=== PATIENT | female | born 1950 | race Caucasian/White ===

== ENCOUNTER 2023-05-16 14:55 | Outpatient (RCR) | payer MEDICARE, OTHER, SELFPAY | END 2023-05-16 23:59 | disposition home or self-care (01) | LOC: RST 14:55 | PROVIDERS: ATTENDING PHYSICIAN Physician Assistant | DX: I69.328 Other speech and language deficits following cerebral infarction (principal); I69.321 Dysphasia following cerebral infarction; I69.318 Other symptoms and signs involving cognitive functions following cerebral infarction | CPT/HCPCS: 92507; 92523; 96125; 97010; 97110; 97112; 97116; 97129; 97130; 97163; 97167; 97530; 97535 ==

== ENCOUNTER → 2023-05-18 15:30 | Outpatient (REF) | payer MEDICARE, OTHER, SELFPAY | LOC: RAD 15:30 | PROVIDERS: ATTENDING PHYSICIAN Nurse Practitioner; FAMILY PHYSICIAN Physician Assistant | DX: I44.7 Left bundle-branch block, unspecified (principal); Z95.2 Presence of prosthetic heart valve; I10 Essential (primary) hypertension; R09.89 Other specified symptoms and signs involving the circulatory and respiratory systems | CPT/HCPCS: 93880 ==

== ENCOUNTER 2023-06-16 10:28 | Outpatient (RCR) | payer MEDICARE, OTHER, SELFPAY | END 2023-06-16 23:59 | disposition home or self-care (01) | LOC: RST 10:28 | PROVIDERS: ATTENDING PHYSICIAN Physician Assistant | DX: I69.328 Other speech and language deficits following cerebral infarction (principal); I69.321 Dysphasia following cerebral infarction; I69.318 Other symptoms and signs involving cognitive functions following cerebral infarction; I69.398 Other sequelae of cerebral infarction; Z73.6 Limitation of activities due to disability | CPT/HCPCS: 92507; 97022; 97110; 97112; 97116; 97129; 97130; 97530; 97535 ==

== ENCOUNTER 2023-07-07 10:17 | Outpatient (RCR) | payer MEDICARE, OTHER, SELFPAY | END 2023-07-07 14:14 | disposition home or self-care (01) | LOC: RST 10:17 | PROVIDERS: ATTENDING PHYSICIAN Physician Assistant | DX: I63.9 Cerebral infarction, unspecified (principal); I69.328 Other speech and language deficits following cerebral infarction; I69.321 Dysphasia following cerebral infarction; I69.318 Other symptoms and signs involving cognitive functions following cerebral infarction | CPT/HCPCS: 92507; 97110; 97112; 97129; 97130; 97530; 97535 ==

== ENCOUNTER 2023-09-15 09:05 | Outpatient (RCR) | payer MEDICARE, OTHER, SELFPAY | END 2023-09-15 23:59 | disposition home or self-care (01) | LOC: RPT 09:05 | PROVIDERS: ATTENDING PHYSICIAN Physician Assistant | DX: N39.3 Stress incontinence (female) (male) (principal); N39.41 Urge incontinence; Z73.6 Limitation of activities due to disability; M62.81 Muscle weakness (generalized); R27.8 Other lack of coordination | CPT/HCPCS: 97140; 97162; 97530 ==

== ENCOUNTER 2023-10-06 09:03 | Outpatient (RCR) | payer MEDICARE, OTHER, SELFPAY | END 2023-10-06 23:59 | disposition home or self-care (01) | LOC: RPT 09:03 | PROVIDERS: ATTENDING PHYSICIAN Physician Assistant | DX: N39.3 Stress incontinence (female) (male) (principal); N39.41 Urge incontinence; Z73.6 Limitation of activities due to disability; M62.81 Muscle weakness (generalized); R27.8 Other lack of coordination | CPT/HCPCS: 97140; 97530 ==

== ENCOUNTER 2023-10-27 23:53 | Inpatient (IN) | payer MEDICARE, OTHER, SELFPAY ==
[2023-10-27 21:01] VITALS: BP 157/78
[2023-10-27 21:08] VITALS: BP 157/93
[2023-10-27 21:10] LABS: Glucose - Point of Care 149 mg/dl (70-99)
--- NOTE | 2023-10-27 21:10 | EDRN ---
Mallory brought right back to room from triage, Dr. Krishnan in at bedside assessing patient and called stroke alert, did call CT to take patient over, there was another stroke alert on the table when I called, they will call when the table opens up.
[2023-10-27] MEDS: ZOFRAN 4 MG IV (21:14)
[2023-10-27 21:15] VITALS: BMI 32.5
[2023-10-27 21:21] LABS: % Basophils 0.3 % (0-2); % Eosinophils 0.2 % (0-6); % Immature Granulocytes 0.2 % (0-0.5); % Lymphocytes 8.5 % (20.5-51.1); % Monocytes 6.9 % (1.7-9.3); % Neutrophils 83.9 % (42.2-75.2); Absolute Lymphocytes 1.1 10^3/uL (1.2-3.4); Absolute Monocytes 0.9 10^3/uL (0.1-0.6); Absolute Neutrophils 10.9 10^3/uL (1.4-6.5); Hematocrit 39.9 % (37.0-47.0); Hemoglobin 13.8 g/dL (12.0-16.0); Mean Corp Hgb Conc. 34.6 g/dL (33.0-37.0); Mean Corpuscular Volume 83.8 fL (81.0-99.0); Mean Platelet Volume 9.9 fL (7.4-10.4); Nucleated Red Blood Cells % 0 %; Platelet Count 268 10^3/uL (130-400); Red Blood Cell Count 4.76 10^6/uL (4.20-5.40); Red Cell Dist. Width 13.6 % (11.5-14.5)
[2023-10-27 21:30] LABS: INR 0.98
[2023-10-27 21:31] LABS: APTT 27.5 Sec (23.4-35.0)
[2023-10-27 21:39] LABS: ALT (SGPT) 34 U/L (0-35); AST (SGOT) 40 U/L (14-36); Albumin 4.4 g/dl (3.5-5.0); Alkaline Phosphatase 86 U/L (38-126); Blood Urea Nitrogen 20 mg/dl (7-17); Calcium 10.1 mg/dl (8.4-10.2); Carbon Dioxide 27 mmol/L (22-30); Chloride 97 mmol/L (98-107); Estimated Creatinine Clearance 83 ml/min; Glucose 138 mg/dl (70-99); Potassium 3.2 mmol/L (3.5-5.1); Sodium 134 mmol/L (135-145); Total Bilirubin 0.8 mg/dl (0.2-1.3); Total Protein 6.7 g/dl (6.3-8.2); eGFR > 60.00
[2023-10-27 21:45] LABS: Troponin I < 0.012 ng/ml
--- NOTE | 2023-10-27 21:49 | EDRN ---
Patient back in the room and resting comfortably with family at bedside, nausea has subsided.
[2023-10-27 22:00] VITALS: BP 150/68
--- NOTE | 2023-10-27 22:06 | ED.CVA ---
History of Present Illness
General
Chief Complaint: CVA/TIA Symptoms
Source: patient and family
Time Seen by Provider: 10/27/23 21:03
Onset of Stroke Symptoms
Onset of symptoms known: No
Date of onset of symptoms: 10/27/23
Time pt last seen normal is known: Yes
Date last time pt seen normal: 10/27/23
Time last time pt seen normal: 06:00
History of Present Illness
History of Present Illness:
73-year-old female presents after family noticed that she was not herself. She had laid down for nap around 6:00 and Checked on her. Around 8 he realized she could not get out of bed on her own and was having a tough time getting up. He
also noted that she was slurring her speech and also had trouble finding words. He states now is mostly trouble finding words. She has a history of a stroke. She had a stroke back in March. Patient also reports nausea. No headache. No focal
motor deficits reported
Past History
Past History
ED Past Medical History: Asthma, CVA, HTN, Hypercholesterolemia, NIDDM, Other (Arthritis) and Other (Seasonal allergies)
ED Past Surgical History: Gynecological (Hysterectomy) and Other (Removal of benign brain tumor)
Social History
Tobacco: Non-smoker
Personal:
Living: with family
Phy Exam
Physical Exam
Physical Exam:
CONSTITUTIONAL Patient alert and oriented to person, place and time. Retching during exam. Vital signs reviewed.
HEAD atraumatic, normocephalic.
EYES eyelids normal to inspection, Pupils equally round and reactive to light, Conjunctiva normal, Sclera normal.
NECK normal range of motion, Trachea midline, no jugular venous distention.
RESPIRATORY CHEST No respiratory distress noted, Chest expansion equal, Bilateral breath sounds clear.
CARDIOVASCULAR regular rate and rhythm, Heart sounds normal.
ABDOMEN abdomen nontender, Bowel sounds normal. No distention.
BACK normal inspection, no obvious deformities
UPPER EXTREMITY range of motion normal, Motor strength normal, no cyanosis, no edema.
LOWER EXTREMITY range of motion normal, Motor strength normal, no cyanosis, no edema.
NEURO mild word finding difficulty on initial exam, No focal motor deficits, Aramis coma scale 15, Memory normal, Cranial Nerves intact to screening exam. No pronator drift
SKIN skin warm, dry, and normal in color.
PSYCHIATRIC patient oriented to person place and time, Normal affect.
Course
Orders/Labs/Results
Orders:
Orders
10/27/23 21:09
Electrocardiogram (*1) Urgent
Reason for Study: Other
Other Reason for Exam: Possible Stroke
CT Head W/o Cont STROKE ALERT Urgent
Comment:
Reason For Exam: aphasia
Bedside Glucose- Treatment ONCE
Cardiac Monitoring- Treatment ONCE
EKG- Treatment ONCE
IV Insert/Care/Rem.- Treatment PRN
Vital Signs As Directed
Frequency: Other
Weight As Directed
Frequency: Once
Comment: ZERO STRETCHER SCALE FOR ACCURATE WEIGHT
O2 Therapy [RESP] Urgent
Titrate/Wean O2 to maintain O2 sat greater than (%): 93
Special Instructions: MAINTAIN CONTINUOUS O2 SATS > OR = 93%
10/27/23 21:10
Ondansetron Injectable [Zofran] 4 mg .ROUTE .STK-MED ONE
10/27/23 21:12
Complete Blood Count/With Diff Urgent
Comprehensive Metabolic Panel Urgent
PTT Urgent
Prothrombin Time Urgent
Troponin I Urgent
10/27/23 21:14
Ondansetron Injectable [Zofran] 4 mg IV NOW STA
10/27/23 21:24
CT Head/Neck Ang STROKE ALERT Urgent
Comment:
Reason For Exam: aphasia
Abnormal Lab Results
10/27/23 10/27/23
21:01 21:12
WBC 13.0 H 10^3/uL
(4.8-10.8)
Absolute Neuts (auto) 10.9 H 10^3/uL
(1.4-6.5)
Absolute Lymphs (auto) 1.1 L 10^3/uL
(1.2-3.4)
Absolute Monos (auto) 0.9 H 10^3/uL
(0.1-0.6)
Neutrophils % 83.9 H %
(42.2-75.2)
Lymphocytes % 8.5 L %
(20.5-51.1)
Sodium 134 L mmol/L
(135-145)
Potassium 3.2 L mmol/L
(3.5-5.1)
Chloride 97 L mmol/L
(98-107)
BUN 20 H mg/dl
(7-17)
Creatinine 0.4 L mg/dL
(0.6-1.0)
Glucose 138 H mg/dl
(70-99)
AST 40 H U/L
(14-36)
POC Glucose 149 H mg/dl
(70-99)
10/27/23 21:12
10/27/23 21:12
Vital Signs
Initial and Last Documented VS:
Initial Vital Signs
BP
157/78
10/27/23 21:01
Last Documented Vital Signs
Temp BP
99.2 F 157/78
10/27/23 21:06 10/27/23 21:01
MDM/Problems Addressed
MDM/Problems Addressed:
Acute TIA, vomiting
*Radiology
Radiology exam reviewed: radiology read reviewed
*Pulse Oximetry
Patient hypoxic: no
*EKG
Interpreted by ED Provider?: Yes
Interpretation: abnormal
Rate: normal
Rhythm: sinus
[place]: left axis deviation
QRS Pattern: left bundle branch block
Ischemia: non-specific ST changes
*Web Site Developer Interpretation
Rate: normal
Interpretation: normal
Rhythm: sinus
*Critical Care Note
Total Time (30-74mins, 75-104mins- exclusive of procedures): 40 minutes
Data Reviewed
Review of Other/Old Records Reveals: Discharge Summary (From March)
Source: patient and family
Prescriptions/Medications Considered But Not Given:
Consider tPA but on reevaluation her symptoms have resolved. Initial score was only at stroke score 1
Patient Management
Discussion with other providers: Hospitalist and [facility] (Discussed with neurology. No tPA)
Escalation/DeEscalation of care consider admission/obs:
On reevaluation she does seem more clear with her speech and feels better. CT negative. Continue aspirin and Plavix as per neurology and admit
ED Attending Note
-
Portions of this chart may have been created with voice recognition software.� Occasional wrong word or��sound alike� substitutions may have occurred due to the inherent limitations of voice recognition software.
Discharge Plan
Departure
Patient Disposition: Admit
Date of Disposition: 10/27/23
Time of Disposition: 22:07
Admit to: Telemetry
Presentation/result/management discussed w/ accepting MD/DO: Hospitalist
Discharge Problem:
TIA (transient ischemic attack)
Prescriptions:
No Action
metoprolol succinate 200 mg Tablet Extended Release 24 Hr
200 mg PO QPM
omeprazole 40 mg Capsule,Delayed Release(Dr/Ec)
40 mg PO QPM
meloxicam 7.5 mg Tablet
7.5 mg PO BID
levothyroxine 50 mcg Tablet
50 mcg PO MOTUWETHFR
metformin 1,000 mg Tablet
1,000 mg PO BID
estradiol 0.01 % (0.1 mg/gram) Cream
1 appful VAGINAL SUWE
Patient Comments:
takes sundays and wednesdays
fenofibrate 160 mg Tablet
160 mg PO DAILY
valsartan-hydrochlorothiazide 320-25 mg Tablet
1 tab PO DAILY
citalopram 40 mg Tablet
40 mg PO QPM
levothyroxine 50 mcg tablet
100 mcg PO SUSA
aspirin 81 mg Tablet,Delayed Release (Dr/Ec)
81 mg PO DAILY Qty: 30 0RF
atorvastatin 80 mg tablet
80 mg PO QPM
amlodipine 5 mg tablet
5 mg PO DAILY
spironolactone 25 mg tablet
25 mg PO DAILY
hydralazine 50 mg tablet
50 mg PO TID
ezetimibe 10 mg tablet
10 mg PO DAILY
Visbiome 112.5 billion cell Capsule
1 cap PO QPM
Ozempic 0.25 mg or 0.5 mg (2 mg/3 mL) pen injector
0.5 mg SC WEEKLY
Referrals:
Gail Joiner CRNP [Family Provider] -
Interventions
Interventions:
ED- Fall Risk Assessment Last Done: 10/27/23 21:20
ED- Neurological Assessment Last Done: 10/27/23 20:59
Discharge Date and Time
Print Language: ROMANSH
[2023-10-27 23:00] VITALS: BP 143/65
[2023-10-27 23:14] LABS: Urine Albumin Trace (Neg - Trace); Urine Bilirubin Negative (Negative); Urine Character Slightly Cloudy (Clear); Urine Color Yellow; Urine Glucose Negative (Negative); Urine Ketone Negative (Negative); Urine Leukocyte Negative (Negative); Urine Nitrite Negative (Negative); Urine Occult Blood Negative (Negative); Urine Urobilinogen Negative (Neg - 1+)
--- NOTE | 2023-10-27 23:14 | EDRN ---
Patient ambulated into the restroom and back in bed resting comfortably asking for water, performed swallow screen first which she passed and now back in bed, with call mcfarland in reach.
--- NOTE | 2023-10-27 23:16 | EDRN ---
Dr. angeles at beside with patient.
--- NOTE | 2023-10-27 23:59 | HPS.HSE ---
Family Physician
-
Family Physician: Gail Joiner
Chief Complaint
-
Speech difficulty
History of Present Illness
Patient is a 73y F with PMH significant for hypertension, DM-II, hypothyroidism and prior CVA who presents to ED for evaluation of speech abnormality. History obtained from patient and her at the bedside. Patient states that she has
felt more dizzy over the past several weeks. She notes chronic dizziness that has been present for years - apparently without clear etiology. Patient states that these symptoms increased about 3 weeks ago and she reports starting 2 new
medications at that time. One of these was a 'water pill' (? spironolactone). She cannot recall the second med, but notes that she stopped it shortly after starting it as she blamed it for her increase in dizziness.
Patient has also been attending pelvic therapy for the past few weeks due to continence issues. She had a session today and noted that she felt particularly sore / uncomfortable following this.
She informed her that she 'wasn't feeling well' and she lie down for a nap around 5:30 - 6 PM.
She did not wake after an hour or two - which she typically does. noted that he checked on her a few times and she seemed to be sleeping comfortably.
Around 8PM he noted that she was trying to get up and he went to assist her. At that time, he noted that she was having difficulty speaking. This was characterized primarily as word-finding difficulty - not dysarthria or garbled speech. She was
also very unsteady on her feet - though there was no appreciated lateral weakness or ataxia.
Patient was brought to the ED for further evaluation and treatment.
Patient is awake and alert and conversant. states that she is improved from prior - but still not at baseline. She continues to have difficulty with word finding - especially with open-ended speech / questions.
Patient denies any recent fevers / chills, cough, urinary symptoms, etc.
does note that she was incontinent of urine this evening in the bed - which is also unusual.
Medical History
Past Medical History
Past Medical History: Reports Other
Additional Past Medical History:
Essential hypertension
DM2
Aortic stenosis
Meningioma
GERD
VESNA
Hypothyroidism
Hyperlipidemia
CVA (03/2023)
Past Surgical History: Reports Other
Additional Past Surgical History:
TAVR January 2023
Meningioma resection
Social History
Tobacco: Non-smoker
Alcohol: None
Drug: None
Personal:
Living: With Family
Family History
Family History: Not pertinent
Allergies / Home Medications
Allergies reflects when Allergies were last updated in [employer].
Home Medications with original date entered in [employer]
Allergy/Medication List:
Allergies
Allergy/AdvReac Type Severity Reaction Status Date / Time
methenamine Allergy Rash, Verified 05/06/23 13:54
itching
sulfamethoxazole Allergy Rash Verified 05/06/23 13:54
[From Bactrim]
trimethoprim [From Bactrim] Allergy Rash Verified 05/06/23 13:54
Home Medications
citalopram 40 mg tablet 40 mg PO QPM Mental Health/Anxiety 12/01/22
estradiol 0.01% (0.1 mg/gram) vaginal cream 1 appful vaginal SUWE Hormonal Agent 12/01/22
fenofibrate 160 mg tablet 160 mg PO DAILY High Cholesterol 12/01/22
levothyroxine 50 mcg tablet 50 mcg PO MOTUWETHFR Thyroid 12/01/22
meloxicam 7.5 mg tablet 7.5 mg PO BID Pain 12/01/22
metformin 1,000 mg tablet 1,000 mg PO BID Diabetes 12/01/22
metoprolol succinate 200 mg tablet,extended release 24 hr 200 mg PO QPM Heart Disease/Condition 12/01/22
omeprazole 40 mg capsule,delayed release 40 mg PO QPM Gastrointestinal Issue 12/01/22
valsartan 320 mg-hydrochlorothiazide 25 mg tablet 1 tab PO DAILY Blood Pressure 12/01/22
levothyroxine 50 mcg tablet 100 mcg PO SUSA Thyroid 04/03/23
aspirin 81 mg tablet,delayed release 81 mg PO DAILY #30 tabs 04/06/23
Lactobac no.2-Bifidobac no.1-S. thermo 112.5 billion cell capsule (Visbiome) 1 cap PO QPM 10/27/23
amlodipine 5 mg tablet 5 mg PO DAILY 10/27/23
atorvastatin 80 mg tablet 80 mg PO QPM 10/27/23
ezetimibe 10 mg tablet 10 mg PO DAILY 10/27/23
hydralazine 50 mg tablet 50 mg PO TID 10/27/23
semaglutide 0.25 mg or 0.5 mg (2 mg/3 mL) subcutaneous pen injector (Ozempic) 0.5 mg SC WEEKLY 10/27/23
spironolactone 25 mg tablet 25 mg PO DAILY 10/27/23
Review of Systems
-
History Source: Patient and Family
A 12 point ROS was completed and negative except as noted: Yes
Constitutional: Reports Night Sweats (hot flashes); Denies Fever or Fatigue
EENT: Denies Sore Throat or Runny Nose
Respiratory: Denies Cough or Trouble Breathing
Cardiac: Denies Chest Pain or Palpitations
Abdomen/GI: Denies Abdominal Pain, Nausea, Vomiting or Diarrhea
: Reports Incontinence; Denies Dysuria or Frequency
Musculoskeletal: Denies Joint Pain or Edema
Neurological: Reports Dizzy and Other (Word-finding difficulty); Denies Headache
Psych: Denies Depression or Anxiety
Physical Exam
Vital Signs
Vital Signs
Temp Pulse Resp BP Pulse Ox
99.2 F 88 21 150/68 88
10/27/23 21:06 10/27/23 22:15 10/27/23 22:15 10/27/23 22:00 10/27/23 22:15
Physical Exam
General: Other (73y F in no acute distress.)
HEENT: PERRLA and Other (Dry MM.)
Respiratory: Clear; No Wheezes, Rales or Rhonchi
Cardiac: S1/S2 and Regular Rhythm; No Murmur
GI: Soft, Non Tender, Non Distended and Normal Bowel Sounds
Musculoskeletal: No Clubbing, No Cyanosis and Other (Trace edema L ankle (chronic / unchanged))
Neuro: AO x 3 and Other (Word-finding difficulty appreciated. No focal weakness / sensory deficit.)
Laboratory Results
-
10/27/23 21:12
10/27/23 21:12
Laboratory Results
PT 13.0 Sec (11.4-14.6) 10/27/23 21:12
INR 0.98 10/27/23 21:12
APTT 27.5 Sec (23.4-35.0) 10/27/23 21:12
Total Bilirubin 0.8 mg/dl (0.2-1.3) 10/27/23 21:12
AST 40 U/L (14-36) H 10/27/23 21:12
ALT 34 U/L (0-35) 10/27/23 21:12
Alkaline Phosphatase 86 U/L (38-126) 10/27/23 21:12
Troponin I < 0.012 ng/ml 10/27/23 21:12
Impression/Plan
-
A/P: Patient is a 73y F with PMH significant for hypertension, DM-II and prior CVA who presents to ED for evaluation of new speech difficulty this evening.
CVA / TIA
- Admit for further evaluation and treatment.
- Persistent word-finding difficulty - symptoms distinct from prior episode (garbled speech, confusion).
- Continue ASA / restart Plavix.
- Continue statin therapy.
- MRI in AM.
- Follow neuro exam for any changes.
- Neurology evaluation in the AM for further recommendations.
Benign Hypertension
- BP fair at present.
- Continue home medications with holding parameters to avoid hypotension.
- Adjust regimen as needed for normotension prior to discharge.
Hypokalemia
- Continue recently started spironolactone.
- Check Mg level (was low on prior admission).
- Hold PPI for now.
DM-II
- Stable. Hold PO medications acutely.
- Hold Ozempic - which appears relatively new.
- Follow glucose and cover with SSI for now.
- Update A1C.
Hypothyroidism
- Continue current T4 supplementation for now.
- Update TFTs.
Chronic Dizziness
Chronic Cerebellar Strokes
- Suspect that chronic dizziness is secondary to previously noted cerebellar strokes.
- PT / OT evaluations.
- Not clear that anything is truly new in this regard.
Aortic Stenosis
- s/p TAVR (01/2023)
DVT Prophylaxis: SCDs
Code Status: Full
[2023-10-28] VITALS (11 sets, daily range): BP systolic 119–153; BP diastolic 48–72; PULSE 85; O2SAT 92; BMI 31.8; BMI 31.7
[2023-10-28] MEDS: TYLENOL 650 MG PO ×4 (03:03→21:52)
--- NOTE | 2023-10-28 03:23 | PTCARENOTE ---
Addendum entered by Lee Ann Feliciano RN 10/28/23 06:04:
Flu and covid negative.
Original Note:
Pt c/o chills, temp 101.2. Pt denies high temps at home. Lungs clear and 98% RA. JURGEN Maynard notified, CXR and Blood cultures ordered. PRN Tylenol given (see mar). Plan of care ongoing.
[2023-10-28 04:26] LABS: COVID-19 Antigen Negative (Negative)
[2023-10-28] MEDS: SYNTHROID 50 MCG PO (05:59)
[2023-10-28 07:18] LABS: Glucose - Point of Care 103 mg/dl (70-99)
[2023-10-28 07:59] LABS: Magnesium 1.2 mg/dl (1.6-2.3)
--- NOTE | 2023-10-28 08:18 | W.PN.HOSP.TC ---
Today's Communication/Plan
-
see bold
Assessment / Plan
Assessment / Plan
73y F with PMH significant for hypertension, DM-II and prior CVA who presents to ED for evaluation of new speech difficulty this evening.
Gen: NAD, awake and alert
Eyes: EOMI, PERRLA, no scleral icterus.
Neck: supple.
CV: RRR, +S1/S2, 2/6 systolic murmur
Resp: CTAB, no rales, wheezes, or rhonchi.
Abd: +BS, soft, NT, ND
Skin: No rashes.
Neuro: CN 2-12 intact, non-focal, expressive aphasia.
Psych: Normal mood and affect.
MRI brain:
1. No MRI evidence for acute infarct.
2. Small chronic ischemic infarcts in the right cerebellar hemisphere.
3. 6.7 mm chronic ischemic periventricular white matter infarct in the right frontal lobe.
4. Mild white matter leukoaraiosis in the frontal and parietal lobes.
5. Previous left frontotemporal craniotomy and meningioma resection with mild encephalomalacia in the left frontal lobe.
6. Mild diffuse cerebral and cerebellar volume loss.
7. 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
8. Severe multilevel left-sided facet joint arthrosis.
9. Mild paranasal sinus mucosal disease.
CXR: No focal parenchymal opacification to suggest pneumonia.
expressive aphasia:
-admitted with persistent word-finding difficulty - symptoms distinct from prior episode (garbled speech, confusion).
-continue ASA/Plavix/statin
-MRI brain without acute CVA
-c/s neuro
Fever/SIRS:
-Flu/COVID NEG
-U/A NEG
-CXR without PNA
-check BCxs
-suspect viral syndrome
Other problems:
Essential Hypertension: cont Norvasc/Hydralazine/BB/aldactone/ARB (with holding parameters)
DM2: SSI/accuchecks
Hypokalemia: 40meq PO K
Hypomagnesemia: 4g IV Mg
Hypothyroidism: cont Levoxyl
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
Aortic Stenosis s/p TAVR (01/2023)
Obesity due to excess calories
Patient's updated bedside
FULL/SCDs
Total time spent on today's encounter was 50 minutes which included time spent in counseling the patient/family regarding diagnosis and treatment plan as listed above, goals of care, and symptom management. Case was discussed with nursing staff,
specialists, and care coordinators/case management. All labs and imaging personally reviewed by me. Remainder the time spent in detailed review of previous records, lab data, imaging, and other medical provider documentation.
Anticipated Discharge: 24 - 48 hours
Subjective/Interval History
-
Date of Service: October 28, 2023
Patient still complains of word finding difficulties. She also complains of postnasal drip that is causing shortness of breath.
Objective Data
-
Labs:
Laboratory Results
10/27/23
21:12
WBC 13.0 H
Hgb 13.8
Hct 39.9
Plt Count 268
PT 13.0
INR 0.98
APTT 27.5
Sodium 134 L
Potassium 3.2 L
Chloride 97 L
Carbon Dioxide 27
BUN 20 H
Creatinine 0.4 L
Glucose 138 H
Calcium 10.1
Total Bilirubin 0.8
AST 40 H
ALT 34
Alkaline Phosphatase 86
Vital Signs:
Vital Signs
Temp Pulse Resp BP Pulse Ox
100.5 F H 82 16 137/60 97
10/28/23 07:59 10/28/23 07:59 10/28/23 07:59 10/28/23 07:59 10/28/23 07:59
I&O
10/27/23 10/28/23 10/29/23
06:59 06:59 06:59
Intake Total 480 / 480
Balance 480 / 480
[2023-10-28] MEDS: KCL 40 MEQ PO (08:29)
[2023-10-28] MEDS: PLAVIX PO ×2 (08:29→09:54)
[2023-10-28] MEDS: ZETIA 10 MG PO (08:29)
[2023-10-28] MEDS: PROTONIX 40 MG PO (08:29)
[2023-10-28] MEDS: ASPIR LOW (ENTERIC COATED) 81 MG PO (08:29)
[2023-10-28] MEDS: ALDACTONE 25 MG PO (08:30)
[2023-10-28] MEDS: DIOVAN 320 MG PO (08:30)
[2023-10-28] MEDS: NORVASC 5 MG PO (08:30)
[2023-10-28] MEDS: APRESOLINE 50 MG PO ×3 (08:30→21:53)
[2023-10-28] MEDS: MAGNESIUM SULFATE 100 IV (08:31)
[2023-10-28 08:49] LABS: Hepatitis C Antibody Negative (Negative)
--- NOTE | 2023-10-28 09:15 | CON.NEURO4 ---
Addendum entered and electronically signed by Michael Garcia MD 10/30/23 09:01:
Impression:
Mrs NURY HODGSON is a 73 year old F who has presented to the hospital with speech impediment that has resolved. MRI revealed Small chronic ischemic infarcts in the right cerebellar hemisphere. 6.7 mm chronic ischemic periventricular white matter
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 left frontotemporal craniotomy and meningioma resection with mild encephalomalacia in the left frontal lobe.
and diffuse cerebral and cerebellar volume loss
Recommendations:
1. Continue Aspirin 81 mg
2. Continue Plavix 75 mg
3. Strict BP control
4. Strict blood sugar control
5. Lipitor 80 mg with taper as OP
6 EEG OP
She can go home and follow up with Neurology OP
Original Note:
Consultation - Neurology 4
-
CONSULTING PHYSICIAN: Michael Garcia MD (Neurology)
REFERRING PHYSICIAN: Hospitalist
DICTATED BY: Michael Garcia
DATE/TIME OF REQUEST: October 27, 2023
DATE/TIME OF CONSULTATION: October 28 2023 0830
Reason for Consultation: Speech impediment
History of Present Illness:
This is a 73 year old right handed female who has presented to the hospital with speech impediment. She gives a history of hypertension, DM-II, hypothyroidism and prior CVA(following TAVR) who was admitted for evaluation of speech abnormality.
Patient states that she has felt more dizzy over the past several weeks. She notes chronic dizziness that has been present for years - apparently without clear etiology. Patient states that these symptoms increased about 3 weeks ago and she
reports started 2 new medications at that time. One of these was a 'water pill' (? spironolactone). She cannot recall the second med, but notes that she stopped it shortly after starting it as she blamed it for her increase in dizziness.
Patient has also been attending pelvic therapy for the past few weeks due to continence issues. She had a session today and noted that she felt particularly sore / uncomfortable following this.
She informed her that she 'wasn't feeling well' and she lie down for a nap around 5:30 - 6 PM.
She did not wake after an hour or two - which she typically does. noted that he checked on her a few times and she seemed to be sleeping comfortably.
Around 8PM he noted that she was trying to get up and he went to assist her. At that time, he noted that she had difficulty speaking. This was primarily as word-finding difficulty - not dysarthria or garbled speech. She was also very unsteady on
her feet - though there was no focal weakness or ataxia.
Patient is awake and alert and conversant. states that she has improved from prior - but still not at baseline. She continues to have word finding issues...
Patient denies any recent fevers / chills, cough, urinary symptoms, etc.
reported she was incontinent of urine this evening in the bed - which is also unusual.
At the time of my exam patient was awake alert and was having her breakfast. Oriented to person place and time. No speech restrictions. No focal motor or sensory deficits.
Past Medical History: As above
Surgical History: TAVR
Family History: [place]
Social History: Lives at home with her . Retired
Allergies: Sulfa methenamine
Home Medications: Addendum
Review of Symptoms:
Patient denies any fever, headache, chest pain, shortness of breath, GI or symptoms.
�Per the HPI.�All systems are reviewed negative except above.
�-
Vital Signs: Temp 38.1 C Pulse 82 Resp16 BP137/60 Pulse Ox 97
Physical Exam:
The patient is afebrile, heart sounds S1 and S2 are (regular / irregular), and chest is clear to auscultation bilaterally. Arthritic deformities of hands
Neurologic Examination:
The patient is awake, alert and oriented x 3. She is able to follow commands and answer questions appropriately. There is no aphasia or dysarthria.
On cranial nerve assessment, pupils are 3 mm bilateral, round and reactive to light and accommodation. Visual valentino are full. Extraocular movements are intact. Facial sensations are intact and bilaterally symmetrical, there is no facial asymmetry.
Hearing is intact bilaterally to normal conversation volume. Tongue palate and uvula are midline. Sternocleidomastoid strengths are full bilaterally.
Motor strengths are 5/5 bilateral upper and lower extremities on medical research [place] scale. There is no drift or involuntary movement noted.
Deep tendon reflexes are + bilateral upper and lower extremities and Babinski is absent bilaterally. Sensations of pain, touch, temperature and vibration are intact and bilaterally symmetrical.
There was no extinction noted on double simultaneous stimulation. Coordination is intact by finger to nose bilaterally. Rombergs Negative. Gait Independent
Lab Results:
Neuro Imaging:
Impression:
(Mr. / Ms.) NURY HODGSON is a 73 year old F who has presented to the hospital with (symptoms/chief complaint).
Differentials for the patient's presentation include:
1.
2.
3.
4.
Patient has the following risk factors for their symptoms:
IV Tenecteplase/IAT candidacy
Recommendations:
1.
2.
3.
Discussed patient care with:
Vital Signs and Labs
-
Vital Signs and Labs:
Vital Signs
Temp Pulse Resp BP Pulse Ox
38.1 C H 82 16 137/60 97
10/28/23 07:59 10/28/23 08:30 10/28/23 07:59 10/28/23 08:30 10/28/23 07:59
Lab Results
10/27/23 21:12
10/27/23 21:12
PT 13.0 Sec (11.4-14.6) 10/27/23 21:12
INR 0.98 10/27/23 21:12
APTT 27.5 Sec (23.4-35.0) 10/27/23 21:12
Sodium 134 mmol/L (135-145) L 07/11/24 21:12
Potassium 3.2 mmol/L (3.5-5.1) L 10/27/23 21:12
BUN 20 mg/dl (7-17) H 10/27/23 21:12
Glucose 138 mg/dl (70-99) H 10/27/23 21:12
Calcium 10.1 mg/dl (8.4-10.2) 10/27/23 21:12
Medications
-
Active Medications
Generic Name Dose Route Start Last Admin
Trade Name Freq PRN Reason Stop Dose Admin
Acetaminophen 650 mg 10/28/23 01:36 10/28/23 03:03
Acetaminophen 325 Mg Tablet PO 11/25/23 01:35 650 mg
Q4HPRN PRN Administration
Mild Pain / Temp > 101
Amlodipine Besylate 5 mg 10/28/23 08:00 10/28/23 08:30
Amlodipine 5 Mg Tablet PO 11/25/23 07:59 5 mg
DAILY VAMSI Administration
Aspirin 81 mg 10/28/23 08:00 10/28/23 08:29
Aspirin 81 Mg (Enteric Coated) Tablet PO 11/25/23 07:59 81 mg
DAILY VAMSI Administration
Atorvastatin Calcium 80 mg 10/28/23 18:00
Atorvastatin (Lipitor) 80 Mg Tablet PO 11/25/23 17:59
QPM VAMSI
Citalopram Hydrobromide 40 mg 10/28/23 18:00
Citalopram 40 Mg Tablet PO 11/25/23 17:59
QPM VAMSI
Clopidogrel Bisulfate 75 mg 10/28/23 08:00 10/28/23 08:29
Clopidogrel 75 Mg Tablet PO 11/25/23 07:59 75 mg
DAILY VAMSI Administration
Dextrose 12.5 grams 10/28/23 01:36
Dextrose 50% (0.5 Grams/Ml) 50 Ml Syringe IV 11/25/23 01:35
[id number] PRN
hypoglycemia
Protocol
Ezetimibe 10 mg 10/28/23 08:00 10/28/23 08:29
Ezetimibe (Zetia) 10 Mg Tablet PO 11/25/23 07:59 10 mg
DAILY VAMSI Administration
Glucagon 1 mg 10/28/23 01:36
Glucagon 1 Mg Vial IM 11/25/23 01:35
PRN PRN
hypoglycemia
Protocol
Hydralazine HCl 50 mg 10/28/23 08:00 10/28/23 08:30
Hydralazine 50 Mg Tablet PO 11/25/23 07:59 50 mg
TID VAMSI Administration
Magnesium Sulfate 4 gram in 100 mls @ 25 mls/hr 10/28/23 08:17 10/28/23 08:31
Magnesium Sulfate IV 10/28/23 12:16 100 mls
NOW STA Administration
Insulin Aspart 0 units 10/28/23 07:30 10/28/23 08:27
Insulin Aspart Low Resistance 300 Units/3 Ml Pen.Injctr SC 11/25/23 07:29 Not Given
AC VAMSI
Protocol
Levothyroxine Sodium 50 mcg 10/28/23 06:00 10/28/23 05:59
Levothyroxine 50 Mcg Tablet PO 11/25/23 05:59 50 mcg
MoTuWeThFr@0600 VAMSI Administration
Levothyroxine Sodium 100 mcg 10/29/23 06:00
Levothyroxine 100 Mcg Tablet PO 11/26/23 05:59
SuSa@0600 VAMSI
Metoprolol Succinate 200 mg 10/28/23 18:00
Metoprolol 100 Mg Extended Release Tablet PO 11/25/23 17:59
QPM VAMSI
Pantoprazole Sodium 40 mg 10/28/23 09:00 10/28/23 08:29
Pantoprazole 40 Mg Delayed Release Tablet PO 11/25/23 08:59 40 mg
DAILY VAMSI Administration
Sodium Chloride 0 flush 10/28/23 02:00
Sodium Chloride 0.9% (Flush) Syringe IV 11/25/23 01:59
PER PROTOCOL VAMSI
Sodium Chloride 1 sprays 10/28/23 03:40
Sodium Chloride 0.65% Nasal [place] 45 Ml Bottle NASAL 11/25/23 03:39
QIDPRN PRN
dry nasal
Spironolactone 25 mg 10/28/23 08:00 10/28/23 08:30
Spironolactone 25 Mg Tablet PO 11/25/23 07:59 25 mg
DAILY VASMI Administration
Valsartan 320 mg 10/28/23 08:00 10/28/23 08:30
Valsartan 80 Mg Tablet PO 11/25/23 07:59 320 mg
DAILY VAMSI Administration
Home Medications
�Medication �Instructions �Recorded
citalopram 40 mg tablet 40 mg PO QPM depression/anxiety 12/01/22
estradiol 0.01% (0.1 mg/gram) 1 appful vaginal SUWE Hormonal 12/01/22
vaginal cream Agent
fenofibrate 160 mg tablet 160 mg PO DAILY High Cholesterol 12/01/22
levothyroxine 50 mcg tablet 50 mcg PO MOTUWETHFR Thyroid 12/01/22
meloxicam 7.5 mg tablet 7.5 mg PO BID Pain 12/01/22
metformin 1,000 mg tablet 1,000 mg PO BID Diabetes 12/01/22
metoprolol succinate 200 mg 200 mg PO QPM Heart 12/01/22
tablet,extended release 24 hr Disease/Condition
omeprazole 40 mg capsule,delayed 40 mg PO QPM Gastrointestinal Issue 12/01/22
release
valsartan 320 1 tab PO DAILY Blood Pressure 12/01/22
mg-hydrochlorothiazide 25 mg tablet
levothyroxine 50 mcg tablet 100 mcg PO SUSA Thyroid 04/03/23
aspirin 81 mg tablet,delayed 81 mg PO DAILY #30 tabs 04/06/23
release
Lactobac no.2-Bifidobac no.1-S. 1 cap PO QPM probiotic 10/27/23
thermo 112.5 billion cell capsule
(Visbiome)
amlodipine 5 mg tablet 5 mg PO DAILY Blood Pressure 10/27/23
atorvastatin 80 mg tablet 80 mg PO QPM High Cholesterol 10/27/23
ezetimibe 10 mg tablet 10 mg PO DAILY High Cholesterol 10/27/23
hydralazine 50 mg tablet 50 mg PO TID Blood Pressure 10/27/23
semaglutide 0.25 mg or 0.5 mg (2 0.5 mg SC WEEKLY diabetes 10/27/23
mg/3 mL) subcutaneous pen injector
(Ozempic)
spironolactone 25 mg tablet 25 mg PO DAILY Blood Pressure 10/27/23
fluticasone propionate 50 1 spray intranasal HS allergies 10/28/23
mcg/actuation nasal
spray,suspension
[2023-10-28 09:59] LABS: Glycohemoglobin (HgbA1c) 6.4 % (4.0-5.6)
--- NOTE | 2023-10-28 12:03 | PTOTSP ---
Speech Language Pathology
Clinical Swallow Evaluation
73F with admission for CVA/TIA workup with PMH of CVA (04/09) with expressive aphasia p/w a functional oropharyngeal swallow. No overt s/s of aspiration or penetration demonstrated this date. MRI negative for new CVA. Would benefit from
cognitive-linguistic evaluation if not returning to baseline.
Recommend:
1. Regular solids, thin liquids
2. Medications as tolerated
3. Aspiration and reflux precautions
4. [employer]ING [employer]PARTMENT SUPERVISOR service to f/u and assess diet tolerance x1; perform cognitive linguistic evaluation as able if changes in baseline persist
[2023-10-28 12:30] LABS: Glucose - Point of Care 143 mg/dl (70-99)
[2023-10-28 16:36] LABS: Glucose - Point of Care 149 mg/dl (70-99)
[2023-10-28] MEDS: CELEXA 40 MG PO (17:01)
[2023-10-28] MEDS: LIPITOR 80 MG PO (17:01)
[2023-10-28] MEDS: TOPROL XL 200 MG PO (17:02)
--- NOTE | 2023-10-28 17:33 | PTCARENOTE ---
per Dr Garvey, neurochecks on patient can be dc'd as brain MRI is neg for acute CVA
[2023-10-28 21:34] LABS: Glucose - Point of Care 140 mg/dl (70-99)
[2023-10-28] MEDS: OCEAN, SALINE MIST 1 SPRAYS NASAL (21:54)
[2023-10-29] VITALS (8 sets, daily range): BP systolic 110–180; BP diastolic 53–109; PULSE 79–87; BMI 31.7
[2023-10-29] MEDS: SYNTHROID 100 MCG PO (06:37)
[2023-10-29 08:22] LABS: Glucose - Point of Care 148 mg/dl (70-99)
[2023-10-29] MEDS: DIOVAN 320 MG PO (08:22)
[2023-10-29] MEDS: ALDACTONE 25 MG PO (08:23)
[2023-10-29] MEDS: ZETIA 10 MG PO (08:23)
[2023-10-29] MEDS: ASPIR LOW (ENTERIC COATED) 81 MG PO (08:23)
[2023-10-29] MEDS: PROTONIX 40 MG PO (08:23)
[2023-10-29] MEDS: NORVASC 5 MG PO (08:23)
[2023-10-29] MEDS: PLAVIX 75 MG PO (08:24)
[2023-10-29] MEDS: TYLENOL 650 MG PO ×2 (08:26→17:48)
[2023-10-29] MEDS: APRESOLINE 50 MG PO ×2 (08:26→17:48)
[2023-10-29 09:27] LABS: % Basophils 0.4 % (0-2); % Eosinophils 0.1 % (0-6); % Immature Granulocytes 0.4 % (0-0.5); % Lymphocytes 7.5 % (20.5-51.1); % Monocytes 2.4 % (1.7-9.3); % Neutrophils 89.2 % (42.2-75.2); Absolute Basophils 0.1 10^3/uL (0-0.2); Absolute Immature Granulocytes 0.1 10^3/uL (0-0.05); Absolute Monocytes 0.3 10^3/uL (0.1-0.6); Absolute Neutrophils 12.1 10^3/uL (1.4-6.5); Hemoglobin 13.3 g/dL (12.0-16.0); Mean Corpuscular Hgb 29.1 pg (27.0-31.0); Mean Corpuscular Volume 83.2 fL (81.0-99.0); Nucleated Red Blood Cells % 0 %; Platelet Count 221 10^3/uL (130-400); Red Blood Cell Count 4.57 10^6/uL (4.20-5.40); Red Cell Dist. Width 14.1 % (11.5-14.5); White Blood Cell Count 13.6 10^3/uL (4.8-10.8)
[2023-10-29 09:28] LABS: Magnesium 1.9 mg/dl (1.6-2.3)
[2023-10-29 09:29] LABS: ALT (SGPT) 58 U/L (0-35); AST (SGOT) 55 U/L (14-36); Albumin 4.1 g/dl (3.5-5.0); Alkaline Phosphatase 100 U/L (38-126); Blood Urea Nitrogen 15 mg/dl (7-17); Calcium 9.4 mg/dl (8.4-10.2); Carbon Dioxide 28 mmol/L (22-30); Chloride 96 mmol/L (98-107); Estimated Creatinine Clearance 82 ml/min; Glucose 131 mg/dl (70-99); Potassium 3.6 mmol/L (3.5-5.1); Sodium 133 mmol/L (135-145); Total Bilirubin 1.1 mg/dl (0.2-1.3); Total Protein 6.6 g/dl (6.3-8.2); eGFR > 60.00
--- NOTE | 2023-10-29 10:53 | W.PN.HOSP.TC ---
Today's Communication/Plan
-
see bold
Assessment / Plan
Assessment / Plan
73y F with PMH significant for hypertension, DM-II and prior CVA who presents to ED for evaluation of new speech difficulty this evening.
Gen: NAD, awake and alert
Eyes: EOMI, PERRLA, no scleral icterus.
Neck: supple.
CV: remains RRR, +S1/S2, 2/6 systolic murmur
Resp: remains CTAB, no rales, wheezes, or rhonchi.
Abd: +BS, soft, NT, ND
Skin: No rashes.
Neuro: CN 2-12 intact, non-focal
Psych: Normal mood and affect.
10/28/23 09:13 Blood/Venous Blood Culture - Preliminary
No Growth in 24 hours- Final report to follow
10/28/23 03:32 Blood/Venous Blood Culture - Preliminary
No Growth in 24 hours- Final report to follow
10/28/23 03:47 Nasal Swab Influenza Types A & B ([facility]) - Final
Negative for Influenza A & B, NAAT
Negative results must be combined with clinical observations
and patient history.
Nucleic Acid Amplification test (NAAT)performed on the
[employer] platform.
MRI brain:
1. No MRI evidence for acute infarct.
2. Small chronic ischemic infarcts in the right cerebellar hemisphere.
3. 6.7 mm chronic ischemic periventricular white matter infarct in the right frontal lobe.
4. Mild white matter leukoaraiosis in the frontal and parietal lobes.
5. Previous left frontotemporal craniotomy and meningioma resection with mild encephalomalacia in the left frontal lobe.
6. Mild diffuse cerebral and cerebellar volume loss.
7. 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
8. Severe multilevel left-sided facet joint arthrosis.
9. Mild paranasal sinus mucosal disease.
CXR: No focal parenchymal opacification to suggest pneumonia.
Expressive aphasia:
-admitted with persistent word-finding difficulty - symptoms distinct from prior episode (garbled speech, confusion).
-continue ASA/Plavix/statin
-MRI brain without acute CVA
-neuro saw in c/s but consult is without an assessment or plan
Fever/SIRS:
-Flu/COVID NEG
-U/A NEG
-CXR without PNA
-BCxs NGTD
-suspect viral syndrome
-c/s ID
Other problems:
Essential Hypertension: cont Norvasc/Hydralazine/BB/aldactone/ARB (with holding parameters)
DM2: SSI/accuchecks
Hypokalemia, resolved
Hypomagnesemia, resolved
Hypothyroidism: cont Levoxyl. Check TSH.
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
Aortic Stenosis s/p TAVR (01/2023)
Obesity due to excess calories
Patient's updated at bedside.
FULL/SCDs
Total time spent on today's encounter was 51 minutes which included time spent in counseling the patient/family regarding diagnosis and treatment plan as listed above, goals of care, and symptom management. Case was discussed with nursing staff,
specialists, and care coordinators/case management. All labs and imaging personally reviewed by me. Remainder the time spent in detailed review of previous records, lab data, imaging, and other medical provider documentation.
Anticipated Discharge: 24 - 48 hours
Subjective/Interval History
-
Date of Service: October 29, 2023
Denies abdominal pain, shortness of breath, cough
Objective Data
-
Labs:
Laboratory Results
10/29/23
08:50
WBC 13.6 H
Hgb 13.3
Hct 38.0
Plt Count 221
Sodium 133 L
Potassium 3.6
Chloride 96 L
Carbon Dioxide 28
BUN 15
Creatinine 0.5 L
Glucose 131 H
Calcium 9.4
Total Bilirubin 1.1
AST 55 H
ALT 58 H
Alkaline Phosphatase 100
Vital Signs:
Vital Signs
Temp Pulse Resp BP Pulse Ox
102.2 F H 85 16 162/77 94
10/29/23 07:00 10/29/23 07:00 10/29/23 07:00 10/29/23 07:00 10/29/23 07:00
I&O
10/28/23 10/29/23 10/30/23
06:59 06:59 06:59
Intake Total 480 / 480 1879
Balance 480 / 480 1879
--- NOTE | 2023-10-29 11:36 | CON.ID ---
Consultation
-
Date/Time Consultation Requested: October 29, 2023 0834
Date/Time Consultation Performed: October 29, 2023 1135
Requesting Provider: Dr. Wade Garvey
Performing Provider: Dr. Guerda Duffy
Reason for Consultation: Fever, unclear source
Chief Complaint / Past History
Chief Complaint
Word finding difficulty
History of Present Illness
History obtained from the patient as well as from her at bedside. 73-year-old female with history of diabetes mellitus, CVA, cerebellar stroke, TAVR, urinary incontinence who started feeling unwell on October 26 with noted that she
slept most of the day, weak, and was having difficulty finding words. He did not check her temperature at home. She presented to ER late at night 10/26. Patient's white count was 13. Temperature was one 101.2. MRI of the brain negative for acute
stroke. COVID antigen negative, flu negative. urine analysis negative. Blood cultures x 2 negative to date. She has persistent fever during the hospital stay. Her speech impediment has improved. Patient reports no ill contacts. Positive
headache when the fever comes on. Seasonal rhinorrhea and postnasal drip stable. Cough is from postnasal drip. No shortness of breath. No chest pain. No nausea or vomiting or abdominal pain. No diarrhea. She is incontinent of urine. No flank
pain. No rash. No new joint pains. No recent travel. She walks her dog along [place]. No known tick or mosquito exposure that she is aware of. Recent new meds Ozempic and a BP med.
Past History
Additional Past Medical History:
DM
HTN
CVA
TAVR (01/2023)
Hypothyroidism
Urinary incontinence
VESNA on CPAP
hx left frontal meningioma resection
Allergy History:
methenamine Allergy (Verified 05/06/23 13:54)
Rash, itching
sulfamethoxazole [From Bactrim] Allergy (Verified 05/06/23 13:54)
Rash
trimethoprim [From Bactrim] Allergy (Verified 05/06/23 13:54)
Rash
Medications Reviewed: Yes
Current Antibiotics:
None
Social History
Tobacco: Non-Smoker
Alcohol: None
Drug: None
Personal:
Family History
Family History: Not Pertinent
Review of Systems
Review of Systems
General: Negative Chills or Change in Appetite
HEENT: Negative Pharyngitis
Cardiovascular: Negative Chest Pain, Dyspnea or Edema
Respiratory: Negative Dyspnea, Cough or Sputum Production
Genital / Urological: Negative Flank Pain
Endocrine: Weakness
Skin / Hair / Nails: Negative Rash
All systems: All other systems were reviewed and were negative
Vital Signs
Temp Pulse Resp BP Pulse Ox
102.2 F H 85 16 162/77 94
10/29/23 07:00 10/29/23 07:00 10/29/23 07:00 10/29/23 07:00 10/29/23 07:00
Physical Exam
Physical Exam
Constitutional: No Acute Distress and Comfortable
Head: Other (No frontal or maxillary sinus tenderness)
Eyes: No Conjunctival Hemorrhage and Sclera Anicteric
Pharynx: Benign
Oral: No Thrush
Cardiovascular: Regular Rate and S1/S2
Pulmonary: Clear
Gastrointestinal: Soft, Tender (Mild right epigstric tenderness), Non Tender, Non Distended and Normal Bowel Sounds
Genito-Urinary: Negative CVA Tenderness
Extremities: Negative Edema
Musculoskeletal: Negative Joint Effusion or Spinal Tenderness
Neurological: AO x 3
Lab / Diagnostic Study Results
10/29/23 08:50
10/29/23 08:50
Abs Immat Gran (auto) 0.1 10^3/uL (0-0.05) H 10/29/23 08:50
Absolute Neuts (auto) 12.1 10^3/uL (1.4-6.5) H 10/29/23 08:50
Absolute Lymphs (auto) 1.0 10^3/uL (1.2-3.4) L 10/29/23 08:50
Absolute Monos (auto) 0.3 10^3/uL (0.1-0.6) 10/29/23 08:50
Absolute Basos (auto) 0.1 10^3/uL (0-0.2) 10/29/23 08:50
Immature Gran % 0.4 % (0-0.5) 10/29/23 08:50
Neutrophils % 89.2 % (42.2-75.2) H 10/29/23 08:50
Lymphocytes % 7.5 % (20.5-51.1) L 10/29/23 08:50
Monocytes % 2.4 % (1.7-9.3) 10/29/23 08:50
Eosinophils % 0.1 % (0-6) 10/29/23 08:50
Basophils % 0.4 % (0-2) 10/29/23 08:50
PT 13.0 Sec (11.4-14.6) 10/27/23 21:12
INR 0.98 10/27/23 21:12
Microbiology Results
Micro:
10/28/23 09:13 Blood Culture - Preliminary
Blood/Venous No Growth in 24 hours- Final report to follow
10/28/23 03:32 Blood Culture - Preliminary
Blood/Venous No Growth in 24 hours- Final report to follow
10/28/23 03:47 Influenza Types A & B ([facility]) - Final
Nasal Swab Negative for Influenza A & B, NAAT
Negative results must be combined with clinical observations
and patient history.
Nucleic Acid Amplification test (NAAT)performed on the
[employer] platform.
10/28/23 MRI brain:
1. No MRI evidence for acute infarct.
2. Small chronic ischemic infarcts in the right cerebellar hemisphere.
3. 6.7 mm chronic ischemic periventricular white matter infarct in the right frontal lobe.
4. Mild white matter leukoaraiosis in the frontal and parietal lobes.
5. Previous left frontotemporal craniotomy and meningioma resection with mild encephalomalacia in the left frontal lobe.
6. Mild diffuse cerebral and cerebellar volume loss.
7. 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
8. Severe multilevel left-sided facet joint arthrosis.
9. Mild paranasal sinus mucosal disease.
10/28/23 CXR 1 view: No focal parenchymal opacification to suggest pneumonia.
Assessment / Plan
# Fever and leukocytosis
-bcx x 2 neg to date
- UA neg
- CXR no opacity
- Has mild right epigastric tenderness. Ordered lipase and CT a/p with po and IV contrast.
- Check tickborne serology labs, babesia smear.
- If CT a/p unremarkable, start empiric doxycycline.
- Follow wbc and temps.
# Conditions prior to admission
DM
HTN
CVA
TAVR (01/2023)
Hypothyroidism
Urinary incontinence
VESNA on CPAP
hx left frontal meningioma resection
[2023-10-29 12:26] LABS: Glucose - Point of Care 176 mg/dl (70-99)
[2023-10-29 12:48] LABS: TSH Reflex To Free T4 1.01 uIU/ml (0.47-4.68)
[2023-10-29] MEDS: OMNIPAQUE 50 ML PO (14:05)
[2023-10-29 14:49] LABS: Lipase 100 U/L (23-300)
[2023-10-29 17:39] LABS: Glucose - Point of Care 147 mg/dl (70-99)
[2023-10-29] MEDS: TOPROL XL 200 MG PO (17:48)
[2023-10-29] MEDS: LIPITOR 80 MG PO (17:48)
[2023-10-29] MEDS: CELEXA 40 MG PO (17:48)
--- NOTE | 2023-10-29 18:04 | W.PN.UPDATE ---
Update Note
Progress Note Update
Called by nurse to see patient for hypoxia and ongoing fevers. Confusion.
Gen-awake but not fully alert, somewhat confused
HEENT-NC, AT, anicteric, clear oral mm
Neck-supple
CV-reg, no M, +S1/S2
Lungs-clear B/L
Abd-soft, NT, ND
Ext-no edema
Musculoskeletal-no cyanosis, clubbing
Skin-warm and dry
Neuro-grossly non-focal
Psych-calm, cooperative
Acute hypoxic respiratory insufficiency -probably related to atelectasis, delirium, hypoventilation. Rule out effects of sepsis. No vomiting according to nurse. Pulse ox 78% on room air, improved to the 90 percentile range on 4 L. Chest x-ray
yesterday was clear. She does not have a significant cough. Recommend continue nasal cannula oxygen, incentive spirometer.
If respiratory status worsens or she is more somnolent, we will need to get ABG this evening and transfer her to a higher level of care.
Sepsis -suspect related to bilateral pyelonephritis and right intrarenal abscess. CT of abdomen/pelvis resulted. Start IV antibiotics. Discussed with infectious disease.
Babesia smear negative. Doxycycline discontinued.
Delirium -likely related to acute illness with sepsis. Presentation with stroke-like symptoms likely due to previous stroke with symptoms unmasked due to current acute illness. Brain MRI negative for acute stroke.
Updated nurse and at the bedside.
[2023-10-29] MEDS: MAXIPIME 1000 MG IV (18:23)
--- NOTE | 2023-10-29 18:33 | PTCARENOTE ---
Pt noted to have a temp this morning 102.2 PRN Tylenol administered with + effects. MD aware of Pt temp. Pt when for CT scan and came back looking pale, diaphoretic, with rectal temp of 104.0. patternmaker grader MD made aware and came to floor to assess Pt. Pt
alert to sound and touch. Pt able to take PRN Tylenol. Vitals taken and Pt noted to be hypoxic 78% Room Air. 4L NC placed POX 92-95%. Family at bedside.
[2023-10-29] MEDS: APRESOLINE PO (20:46)
[2023-10-29 21:35] LABS: Glucose - Point of Care 142 mg/dl (70-99)
[2023-10-30] VITALS (8 sets, daily range): BP systolic 104–134; BP diastolic 53–87; PULSE 76–79
[2023-10-30] MEDS: STERILE WATER FOR INJECTION 10 ML IV ×4 (00:59→17:23)
[2023-10-30] MEDS: MAXIPIME 1000 MG IV ×4 (00:59→17:22)
[2023-10-30] MEDS: SYNTHROID 100 MCG PO (05:59)
--- NOTE | 2023-10-30 07:45 | W.PN.HOSP.TC ---
Today's Communication/Plan
-
see bold
Assessment / Plan
Assessment / Plan
73y F with PMH significant for hypertension, DM-II and prior CVA who presents to ED for evaluation of new speech difficulty this evening.
Gen: NAD, awake and alert
Eyes: EOMI, PERRLA, no scleral icterus.
Neck: supple.
CV: Continues to remain RRR, +S1/S2, 2/6 systolic murmur
Resp: Continues to remain CTAB, no rales, wheezes, or rhonchi.
Abd: +BS, soft, NT, ND
Skin: No rashes.
Neuro: remains CN 2-12 intact, non-focal
Psych: Normal mood and affect.
10/28/23 09:13 Blood/Venous Blood Culture - Preliminary
No Growth in 24 hours- Final report to follow
10/28/23 03:32 Blood/Venous Blood Culture - Preliminary
No Growth in 24 hours- Final report to follow
10/28/23 03:47 Nasal Swab Influenza Types A & B ([facility]) - Final
Negative for Influenza A & B, NAAT
Negative results must be combined with clinical observations
and patient history.
Nucleic Acid Amplification test (NAAT)performed on the
[employer] NOW platform.
MRI brain:
1. No MRI evidence for acute infarct.
2. Small chronic ischemic infarcts in the right cerebellar hemisphere.
3. 6.7 mm chronic ischemic periventricular white matter infarct in the right frontal lobe.
4. Mild white matter leukoaraiosis in the frontal and parietal lobes.
5. Previous left frontotemporal craniotomy and meningioma resection with mild encephalomalacia in the left frontal lobe.
6. Mild diffuse cerebral and cerebellar volume loss.
7. 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
8. Severe multilevel left-sided facet joint arthrosis.
9. Mild paranasal sinus mucosal disease.
CXR: No focal parenchymal opacification to suggest pneumonia.
CT A/P:
1. Suspect focal areas of bilateral pyelonephritis with intrarenal abscess formation within the upper pole right kidney measuring up to 2.9 cm.
2. Intravesical gas suggesting cystitis.
3. Mild to moderate diffuse colonic stool burden may reflect constipation.
CT C-spine: Degenerative changes throughout the cervical spine, most prominent hypertrophic, especially C4-C7 with some resultant central canal stenosis. Cervical spinal cord cannot be assessed with this imaging modality, MRI recommended, if
warranted. No findings to suggest recent cervical spine fracture.
Sepsis, POA, due to B/L pyelonephritis with R renal abscesses:
-imaging above
-cont Cefepime
-ID following
-c/s IR for R renal abscess drainage
-BCxs NGTD
Expressive aphasia:
-admitted with persistent word-finding difficulty - symptoms distinct from prior episode (garbled speech, confusion).
-continue ASA/Plavix/statin
-MRI brain without acute CVA
-neuro saw in c/s but consult is without an assessment or plan
Acute hypoxemic respiratory insufficiency:
-Likely related to sepsis in the setting of likely undiagnosed VESNA/OHS
-Check chest x-ray
Other problems:
Essential Hypertension: cont Norvasc/Hydralazine/BB/aldactone/ARB (with holding parameters)
DM2: SSI/accuchecks
Hypokalemia, resolved
Hypomagnesemia, resolved
Hypothyroidism: cont Levoxyl.
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
Aortic Stenosis s/p TAVR (01/2023)
Obesity due to excess calories
FULL/SCDs
Anticipated Discharge: > 48 hours
Subjective/Interval History
-
Date of Service: October 30, 2023
No new complaints.
Objective Data
-
Vital Signs:
Vital Signs
Temp Pulse Resp BP Pulse Ox
98.8 F 71 18 113/65 94
10/30/23 03:19 10/30/23 03:19 10/30/23 03:19 10/30/23 03:19 10/30/23 03:19
I&O
10/29/23 10/30/23 10/31/23
06:59 06:59 06:59
Intake Total 1880 / 1880 900 / 900
Balance 1880 / 1880 900 / 900
[2023-10-30 08:26] LABS: Glucose - Point of Care 167 mg/dl (70-99)
[2023-10-30] MEDS: DIOVAN 320 MG PO (08:33)
[2023-10-30] MEDS: PLAVIX 75 MG PO (08:34)
[2023-10-30] MEDS: ASPIR LOW (ENTERIC COATED) 81 MG PO (08:34)
[2023-10-30] MEDS: ZETIA 10 MG PO (08:34)
[2023-10-30] MEDS: APRESOLINE PO ×4 (08:35→21:33)
[2023-10-30] MEDS: ALDACTONE 25 MG PO (08:35)
[2023-10-30] MEDS: NORVASC 5 MG PO (08:35)
[2023-10-30] MEDS: PROTONIX 40 MG PO (08:36)
--- NOTE | 2023-10-30 08:48 | W.PN.NEURO.1 ---
Today's Communication / Plan
-
DAPT. Strict BP control
Neuro Assessment/Plan
Assessment
[facility]
[address] [id number]

~~REPORT ADDENDUM~~
Impression:
Mrs NURY HODGSON is a 73 year old F who has presented to the hospital with speech impediment that has resolved. MRI revealed Small chronic ischemic infarcts in the right cerebellar hemisphere. 6.7 mm chronic ischemic periventricular white matter
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 left frontotemporal craniotomy and meningioma resection with mild encephalomalacia in the left frontal lobe.
and diffuse cerebral and cerebellar volume loss
Plan
1. Continue Aspirin 81 mg
2. Continue Plavix 75 mg
3. Strict BP control
4. Strict blood sugar control
5. Lipitor 80 mg with taper as OP
6 EEG OP
Subjective/Objective
Subjective Data
Date of Service: October 30, 2023
Pat is doing well. Speech is at baseline. She has no new complaints
Objective Data
Vital Signs
Temp Pulse Resp BP Pulse Ox
37.7 C 73 16 119/70 98
10/30/23 07:00 10/30/23 07:00 10/30/23 07:00 10/30/23 07:00 10/30/23 07:00
Lab Results
10/29/23 08:50
10/29/23 08:50
PT 13.0 Sec (11.4-14.6) 10/27/23 21:12
INR 0.98 10/27/23 21:12
APTT 27.5 Sec (23.4-35.0) 10/27/23 21:12
Sodium 133 mmol/L (135-145) L 10/29/23 08:50
Potassium 3.6 mmol/L (3.5-5.1) 10/29/23 08:50
BUN 15 mg/dl (7-17) 10/29/23 08:50
Glucose 131 mg/dl (70-99) H 10/29/23 08:50
Calcium 9.4 mg/dl (8.4-10.2) 10/29/23 08:50
Patient Allergies
methenamine Allergy (Verified 05/06/23 13:54)
Rash, itching
sulfamethoxazole [From Bactrim] Allergy (Verified 05/06/23 13:54)
Rash
trimethoprim [From Bactrim] Allergy (Verified 05/06/23 13:54)
Rash
--- NOTE | 2023-10-30 10:22 | W.PN.UPDATE ---
Update Note
Progress Note Update
- IR consulted for possible R renal abscess. CT from 10/28 shows a hypodense focus in the posterior right mid pole measuring about 2.5 cm. Minimal perinephric stranding. 15 mm septated cyst in this location on prior CT from 01/03/23
- Likely too small for drain placement, can attempt CT or US guided aspiration
- Superficial location - ok to continue plavix/asa
[2023-10-30] MEDS: TYLENOL 650 MG PO ×2 (11:57→19:24)
[2023-10-30 12:20] LABS: Glucose - Point of Care 197 mg/dl (70-99)
--- NOTE | 2023-10-30 12:40 | W.PN.ID1 ---
Date of Service
Date of Service: October 30, 2023
Today's Communication
See below.
Assessment / Plan
# Right renal abscess seen in CT
- UA negative
- Ucx (prior to abx) pending
- For IR aspiration and cx of renal abscess, cx.
- Continue cefepime (d2).
# Sepsis - likely due to renal abscess
# High fever persists.
# Leukocytosis
-bcx x 2 neg to date
- CXR x2 no opacity
-Babesia smear negative
-Lyme/Anaplasma/Ehrlichia serologies pending
- Follow wbc and temps.
# Conditions prior to admission
DM
HTN
CVA
TAVR (01/2023)
Hypothyroidism
Urinary incontinence
VESNA on CPAP
hx left frontal meningioma resection
Chief Complaint
-: Fever
Subjective / Review of Systems
at bedside. Pt currently with 103 fever, shaking chills.
Vital Signs / Physical Exam
Vital Signs
Vital Signs
Temp Pulse Resp BP Pulse Ox
103.2 F H 101 20 178/120 89
10/30/23 11:30 10/30/23 11:35 10/30/23 11:35 10/30/23 11:35 10/30/23 11:35
Physical Exam
Constitutional: Acutely Ill (huddled under blanket shivering)
Cardiovascular: Other (tachycardic)
Pulmonary: Clear
Gastrointestinal: Soft, Non Tender, Non Distended and Normal Bowel Sounds
Genito-Urinary: Negative CVA Tenderness
Neurological: Tremors (lethargic)
Objective Data
Lab Data
Lab Results
10/29/23 08:50
10/29/23 08:50
PT 13.0 Sec (11.4-14.6) 10/27/23 21:12
INR 0.98 10/27/23 21:12
APTT 27.5 Sec (23.4-35.0) 10/27/23 21:12
Estimated Creat Clear 82 ml/min 10/29/23 08:50
Total Bilirubin 1.1 mg/dl (0.2-1.3) 10/29/23 08:50
AST 55 U/L (14-36) H 10/29/23 08:50
ALT 58 U/L (0-35) H 10/29/23 08:50
Alkaline Phosphatase 100 U/L (38-126) 10/29/23 08:50
Most recent labs reviewed.
Micro Results:
10/28/23 09:13 Blood Culture - Preliminary
Blood/Venous No Growth in 48 hours- Final report to follow
10/29/23 13:39 Blood Parasites Smear - Final
Blood/Venous
10/28/23 03:32 Blood Culture - Preliminary
Blood/Venous No Growth in 48 hours- Final report to follow
10/30/23 00:15 Urine Culture - Pending
Urine
10/28/23 03:47 Influenza Types A & B ([facility]) - Final
Nasal Swab Negative for Influenza A & B, NAAT
Negative results must be combined with clinical observations
and patient history.
Nucleic Acid Amplification test (NAAT)performed on the
[employer] platform.
10/29/23 CT a/p with po and IV contrast: Suspect focal areas of bilateral pyelonephritis with intrarenal abscess formation within the upper pole right kidney measuring up to 2.9 cm. Intravesical gas suggesting cystitis.
10/28/23 MRI brain:
1. No MRI evidence for acute infarct.
2. Small chronic ischemic infarcts in the right cerebellar hemisphere.
3. 6.7 mm chronic ischemic periventricular white matter infarct in the right frontal lobe.
4. Mild white matter leukoaraiosis in the frontal and parietal lobes.
5. Previous left frontotemporal craniotomy and meningioma resection with mild encephalomalacia in the left frontal lobe.
6. Mild diffuse cerebral and cerebellar volume loss.
7. 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
8. Severe multilevel left-sided facet joint arthrosis.
9. Mild paranasal sinus mucosal disease.
10/28/23 CXR 1 view: No focal parenchymal opacification to suggest pneumonia.
Care Review
Plan reviewed with: Physician (Dr. Garvey)
[2023-10-30 17:01] LABS: Glucose - Point of Care 218 mg/dl (70-99)
--- NOTE | 2023-10-30 17:12 | PTCARENOTE ---
Patient refused Insulin over the past two days, stating her ct mri technologist told her 'not to take Insulin'. made aware.
[2023-10-30] MEDS: LIPITOR 80 MG PO (17:22)
[2023-10-30] MEDS: TOPROL XL 200 MG PO (17:22)
[2023-10-30] MEDS: CELEXA 40 MG PO (17:33)
[2023-10-30 21:33] LABS: Glucose - Point of Care 215 mg/dl (70-99)
[2023-10-31] MEDS: MAXIPIME 1000 MG IV ×4 (00:05→17:15)
[2023-10-31] MEDS: STERILE WATER FOR INJECTION 10 ML IV ×4 (00:06→17:15)
[2023-10-31 03:00] VITALS: BP 125/66
[2023-10-31] MEDS: SYNTHROID 50 MCG PO (05:53)
[2023-10-31 06:00] VITALS: BMI 31.5
[2023-10-31 06:58] LABS: Hematocrit 35.1 % (37.0-47.0); Hemoglobin 11.9 g/dL (12.0-16.0); Mean Corp Hgb Conc. 33.9 g/dL (33.0-37.0); Mean Corpuscular Hgb 28.7 pg (27.0-31.0); Mean Corpuscular Volume 84.6 fL (81.0-99.0); Mean Platelet Volume 10.6 fL (7.4-10.4); Platelet Count 225 10^3/uL (130-400); Red Blood Cell Count 4.15 10^6/uL (4.20-5.40); White Blood Cell Count 12.8 10^3/uL (4.8-10.8)
[2023-10-31 07:10] VITALS: BP 128/66
[2023-10-31] MEDS: NORVASC 5 MG PO (07:57)
[2023-10-31] MEDS: PLAVIX 75 MG PO (07:57)
[2023-10-31] MEDS: PROTONIX 40 MG PO (07:57)
[2023-10-31] MEDS: ASPIR LOW (ENTERIC COATED) 81 MG PO (07:57)
[2023-10-31 07:58] LABS: Glucose - Point of Care 162 mg/dl (70-99)
[2023-10-31] MEDS: APRESOLINE 50 MG PO ×3 (07:58→21:11)
[2023-10-31] MEDS: ALDACTONE 25 MG PO (08:01)
[2023-10-31] MEDS: ZETIA 10 MG PO (08:01)
[2023-10-31] MEDS: DIOVAN 320 MG PO (08:02)
[2023-10-31 08:04] LABS: ALT (SGPT) 346 U/L (0-35); AST (SGOT) 288 U/L (14-36); Albumin 3.4 g/dl (3.5-5.0); Alkaline Phosphatase 253 U/L (38-126); Blood Urea Nitrogen 26 mg/dl (7-17); Calcium 9.2 mg/dl (8.4-10.2); Carbon Dioxide 27 mmol/L (22-30); Chloride 99 mmol/L (98-107); Estimated Creatinine Clearance 82 ml/min; Glucose 130 mg/dl (70-99); Potassium 3.6 mmol/L (3.5-5.1); Sodium 136 mmol/L (135-145); Total Bilirubin 1.2 mg/dl (0.2-1.3); Total Protein 5.8 g/dl (6.3-8.2); eGFR > 60.00
--- NOTE | 2023-10-31 08:38 | W.PN.UPDATE ---
Update Note
Progress Note Update
Reviewed imaging. Small hypodense region in the right kidney likely representing focal pyelonephritis with developing abscess. Given Hounsfield units >20 within this lesion, this is likely phlegmon without central fluid to adequately sample.
Diminutive size of this lesion and intercostal approach makes sampling difficult as well. Would consider repeat CT in a few days to re-evaluate, and if this area appears more fluid dense with interval enlargement (i.e. more amenable to aspiration),
we can attempt aspiration at that time.
--- NOTE | 2023-10-31 09:29 | W.PN.HOSP.TC ---
Today's Communication/Plan
-
see bold
Assessment / Plan
Assessment / Plan
Gen: NAD, awake and alert
Eyes: EOMI, PERRLA, no scleral icterus.
Neck: supple.
CV: RRR, +S1/S2, 2/6 systolic murmur
Resp: CTAB anteriorly, no rales, wheezes, or rhonchi.
Abd: +BS, soft, NT, ND
Skin: No rashes.
Neuro: continues to remain CN 2-12 intact, non-focal
Psych: Normal mood and affect.
10/28/23 09:13 Blood/Venous Blood Culture - Preliminary
No Growth in 72 hours- Final report to follow
10/28/23 03:32 Blood/Venous Blood Culture - Preliminary
No Growth in 72 hours- Final report to follow
10/29/23 13:39 Blood/Venous Blood Parasites Smear - Final
10/28/23 03:47 Nasal Swab Influenza Types A & B ([facility]) - Final
Negative for Influenza A & B, NAAT
Negative results must be combined with clinical observations
and patient history.
Nucleic Acid Amplification test (NAAT)performed on the
[employer] NOW platform.
MRI brain:
1. No MRI evidence for acute infarct.
2. Small chronic ischemic infarcts in the right cerebellar hemisphere.
3. 6.7 mm chronic ischemic periventricular white matter infarct in the right frontal lobe.
4. Mild white matter leukoaraiosis in the frontal and parietal lobes.
5. Previous left frontotemporal craniotomy and meningioma resection with mild encephalomalacia in the left frontal lobe.
6. Mild diffuse cerebral and cerebellar volume loss.
7. 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
8. Severe multilevel left-sided facet joint arthrosis.
9. Mild paranasal sinus mucosal disease.
CXR: No focal parenchymal opacification to suggest pneumonia.
CT A/P:
1. Suspect focal areas of bilateral pyelonephritis with intrarenal abscess formation within the upper pole right kidney measuring up to 2.9 cm.
2. Intravesical gas suggesting cystitis.
3. Mild to moderate diffuse colonic stool burden may reflect constipation.
CT C-spine: Degenerative changes throughout the cervical spine, most prominent hypertrophic, especially C4-C7 with some resultant central canal stenosis. Cervical spinal cord cannot be assessed with this imaging modality, MRI recommended, if
warranted. No findings to suggest recent cervical spine fracture.
MRI C-spine: Multilevel degenerative changes of the cervical spine as detailed, worst at C4-5 where disc osteophyte complex/uncovering and uncovertebral/facet disease contribute to moderate to severe spinal canal and neural foraminal stenosis at
this level. No cord edema.
Sepsis, POA, due to B/L pyelonephritis with R renal phlegmon:
-imaging above
-cont Cefepime
-add Doxy until tick-bourne serologies result
-ID following (discussed with ID)
-as per IR, no adequate fluid to drain at this time
-BCxs NGTD
Expressive aphasia:
-admitted with persistent word-finding difficulty - symptoms distinct from prior episode (garbled speech, confusion).
-continue ASA/Plavix/statin
-MRI brain without acute CVA
-neuro saw in c/s but consult is without an assessment or plan
Acute hypoxemic respiratory insufficiency:
-Likely related to sepsis in the setting of likely undiagnosed VESNA/OHS
-CXR: No active cardiopulmonary disease.
Other problems:
Essential Hypertension: cont Norvasc/Hydralazine/BB/aldactone/ARB (with holding parameters)
DM2: SSI/accuchecks
Hypokalemia, resolved
Hypomagnesemia, resolved
Hypothyroidism: cont Levoxyl.
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
Aortic Stenosis s/p TAVR (01/2023)
Obesity due to excess calories
FULL/SCDs
Anticipated Discharge: > 48 hours
Subjective/Interval History
-
Date of Service: October 31, 2023
'I'm feeling better.'
Objective Data
-
Labs:
Laboratory Results
10/31/23
06:30
WBC 12.8 H
Hgb 11.9 L
Hct 35.1 L
Plt Count 225
Sodium 136
Potassium 3.6
Chloride 99
Carbon Dioxide 27
BUN 26 H
Creatinine 0.6
Glucose 130 H
Calcium 9.2
Total Bilirubin 1.2
AST 288 H
ALT 346 H
Alkaline Phosphatase 253 H
Vital Signs:
Vital Signs
Temp Pulse Resp BP Pulse Ox
98.5 F 67 17 128/66 98
10/31/23 07:10 10/31/23 08:02 10/31/23 07:10 10/31/23 08:02 10/31/23 07:10
I&O
10/30/23 10/31/23 11/01/23
06:59 06:59 06:59
Intake Total 900 / 900 1080 / 1080
Balance 900 / 900 1080 / 1080
[2023-10-31] MEDS: VIBRAMYCIN 100 MG PO ×2 (11:27→21:11)
--- NOTE | 2023-10-31 11:37 | CM ---
Reviewed the chart notes and spoke with the patient at the bedside. The patient resides with her spouse in a first floor apartment with no steps to enter. The patient reports only DME in home consists of rolling walker and shower chair. The
patient has had [facility] and been to [facility] acute [facility]. The patient confirmed her pharmacy of choice is the [facility]. CM continues to be available to patient/family and is monitoring medical plan for needs at discharge.
Plan: Discharge plans will depend on the patient's progress.
--- NOTE | 2023-10-31 11:37 | W.PN.ID1 ---
Date of Service
Date of Service: October 31, 2023
Today's Communication
See below,
Assessment / Plan
# Right renal abscess seen in CT
- UA negative
- Ucx (prior to cx) 30k rosa m
- Abscess phlegmon not ready for aspiration, per IR.
- Continue cefepime (d3).
# Sepsis - likely due to renal abscess
# High fever persists.
# Leukocytosis - trending down
-bcx x 2 neg to date
- CXR x2 no opacity
-Babesia smear negative
-Lyme/Anaplasma/Ehrlichia serologies pending
- Empiric doxycycline while waiting for labs
- Follow wbc and temps.
# Conditions prior to admission
DM
HTN
CVA
TAVR (01/2023)
Hypothyroidism
Urinary incontinence
VESNA on CPAP
hx left frontal meningioma resection
Chief Complaint
-: Fever
Subjective / Review of Systems
Feeling better.
Vital Signs / Physical Exam
Vital Signs
Vital Signs
Temp Pulse Resp BP Pulse Ox
98.5 F 67 17 128/66 98
10/31/23 07:10 10/31/23 08:02 10/31/23 07:10 10/31/23 08:02 10/31/23 07:10
Physical Exam
Constitutional: No Acute Distress and Comfortable
Cardiovascular: Regular Rate and S1/S2
Pulmonary: Clear
Genito-Urinary: Negative CVA Tenderness
Objective Data
Lab Data
Lab Results
10/31/23 06:30
10/31/23 06:30
PT 13.0 Sec (11.4-14.6) 10/27/23 21:12
INR 0.98 10/27/23 21:12
APTT 27.5 Sec (23.4-35.0) 10/27/23 21:12
Estimated Creat Clear 82 ml/min 10/31/23 06:30
Total Bilirubin 1.2 mg/dl (0.2-1.3) 10/31/23 06:30
AST 288 U/L (14-36) H 10/31/23 06:30
ALT 346 U/L (0-35) H 10/31/23 06:30
Alkaline Phosphatase 253 U/L (38-126) H 10/31/23 06:30
Most recent labs reviewed.
Micro Results:
10/30/23 00:15 Urine Culture - Final
Urine
10/28/23 09:13 Blood Culture - Preliminary
Blood/Venous No Growth in 72 hours- Final report to follow
10/28/23 03:32 Blood Culture - Preliminary
Blood/Venous No Growth in 72 hours- Final report to follow
10/29/23 13:39 Blood Parasites Smear - Final
Blood/Venous
10/28/23 03:47 Influenza Types A & B ([facility]) - Final
Nasal Swab Negative for Influenza A & B, NAAT
Negative results must be combined with clinical observations
and patient history.
Nucleic Acid Amplification test (NAAT)performed on the
[employer] platform.
10/29/23 CT a/p with po and IV contrast: Suspect focal areas of bilateral pyelonephritis with intrarenal abscess formation within the upper pole right kidney measuring up to 2.9 cm. Intravesical gas suggesting cystitis.
10/28/23 MRI brain:
1. No MRI evidence for acute infarct.
2. Small chronic ischemic infarcts in the right cerebellar hemisphere.
3. 6.7 mm chronic ischemic periventricular white matter infarct in the right frontal lobe.
4. Mild white matter leukoaraiosis in the frontal and parietal lobes.
5. Previous left frontotemporal craniotomy and meningioma resection with mild encephalomalacia in the left frontal lobe.
6. Mild diffuse cerebral and cerebellar volume loss.
7. 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
8. Severe multilevel left-sided facet joint arthrosis.
9. Mild paranasal sinus mucosal disease.
10/28/23 CXR 1 view: No focal parenchymal opacification to suggest pneumonia.
Care Review
Plan reviewed with: Physician (Dr. Garvey)
[2023-10-31 11:39] VITALS: BP 125/66; BP 135/64; BP 145/68; PULSE 65; PULSE 68
[2023-10-31 11:49] LABS: Glucose - Point of Care 142 mg/dl (70-99)
[2023-10-31 11:51] LABS: Lyme Antibody Screen, EIA Negative (Negative)
--- NOTE | 2023-10-31 14:44 | PTOTSP ---
ST Acute Care Evaluation & Follow-Up
Pt demonstrates functional oropharyngeal swallow.
Pt currently presents with cognitive linguistic function that is within functional limits for her age and education. Pt's orientation, repetition, reading, and receptive language are WFL. Pt's expressive language is generally within functional
limits with the exception of mild anomia and mild occasional articulatory errors, which is reportedly consistent with her baseline. Pt is aware of strategies that can help her (e.g. slow speech, context clues, alphabet cueing, relational cues, etc.)
and utilizes them with ease.
Recommendations:
- Continue with regular solids, thin liquids, meds as tolerated.
- Continue with general aspiration precautions.
- No skilled dysphagia services warranted at this time. CREATIVE PROJECT MANAGER to sign off.
- No skilled cognitive linguistic or speech/language tx warranted at this time. CREATIVE PROJECT MANAGER to sign off.
[2023-10-31 15:15] VITALS: BP 135/68
[2023-10-31 16:40] LABS: Glucose - Point of Care 149 mg/dl (70-99)
[2023-10-31] MEDS: LIPITOR 80 MG PO (17:15)
[2023-10-31] MEDS: CELEXA 40 MG PO (17:15)
[2023-10-31] MEDS: TOPROL XL 200 MG PO (17:15)
[2023-10-31 19:00] VITALS: BP 132/71; BP 132/72; BP 143/66; PULSE 72; PULSE 75; PULSE 76
[2023-10-31] MEDS: TYLENOL 650 MG PO (21:13)
[2023-10-31 21:15] LABS: Glucose - Point of Care 145 mg/dl (70-99)
[2023-10-31 23:04] VITALS: BP 136/69
[2023-11-01] VITALS (8 sets, daily range): BP systolic 112–155; BP diastolic 42–79; PULSE 68–84; O2SAT 94; BMI 31.6
[2023-11-01] MEDS: MAXIPIME 1000 MG IV ×2 (00:32→05:52)
[2023-11-01] MEDS: STERILE WATER FOR INJECTION 10 ML IV ×2 (00:32→05:52)
[2023-11-01] MEDS: TYLENOL 650 MG PO ×2 (03:15→20:29)
[2023-11-01] MEDS: MOTRIN 400 MG PO (04:19)
--- NOTE | 2023-11-01 04:25 | PTCARENOTE ---
Pt remains periodically febrile overnight. Pt intermittently packed with ice and medicated with Tylenol (refer to MAR). JURGEN Maynard notified. Pt's highest oral temp 102.9, pt shaking and unsteady ambulating to bathroom. Received x1 order for Motrin -
admin at approx [id number]. Pt's call mcfarland within reach.
[2023-11-01] MEDS: SYNTHROID 50 MCG PO (05:52)
[2023-11-01 07:30] LABS: Glucose - Point of Care 145 mg/dl (70-99)
[2023-11-01] MEDS: PLAVIX 75 MG PO (08:18)
[2023-11-01] MEDS: NORVASC 5 MG PO (08:18)
[2023-11-01] MEDS: PROTONIX 40 MG PO (08:19)
[2023-11-01] MEDS: APRESOLINE 50 MG PO ×2 (08:19→17:05)
[2023-11-01] MEDS: ALDACTONE 25 MG PO (08:19)
[2023-11-01] MEDS: ASPIR LOW (ENTERIC COATED) 81 MG PO (08:19)
[2023-11-01] MEDS: VIBRAMYCIN 100 MG PO ×2 (08:19→20:27)
[2023-11-01] MEDS: ZETIA 10 MG PO (08:19)
[2023-11-01] MEDS: DIOVAN 320 MG PO (08:20)
--- NOTE | 2023-11-01 10:10 | W.PN.HOSP.TC ---
Today's Communication/Plan
-
see A/P
Assessment / Plan
Assessment / Plan
Gen: NAD, awake and alert
Eyes: EOMI, PERRLA, no scleral icterus.
Neck: supple.
CV: RRR, +S1/S2, 2/6 systolic murmur
Resp: CTAB anteriorly, no rales, wheezes, or rhonchi.
Abd: +BS, soft, NT, ND
Skin: No rashes.
Neuro: continues to remain CN 2-12 intact, non-focal
Psych: Normal mood and affect.
10/28/23 09:13 Blood/Venous Blood Culture - Preliminary
No Growth in 72 hours- Final report to follow
10/28/23 03:32 Blood/Venous Blood Culture - Preliminary
No Growth in 72 hours- Final report to follow
10/29/23 13:39 Blood/Venous Blood Parasites Smear - Final
10/28/23 03:47 Nasal Swab Influenza Types A & B ([facility]) - Final
Negative for Influenza A & B, NAAT
Negative results must be combined with clinical observations
and patient history.
Nucleic Acid Amplification test (NAAT)performed on the
[employer] NOW platform.
MRI brain:
1. No MRI evidence for acute infarct.
2. Small chronic ischemic infarcts in the right cerebellar hemisphere.
3. 6.7 mm chronic ischemic periventricular white matter infarct in the right frontal lobe.
4. Mild white matter leukoaraiosis in the frontal and parietal lobes.
5. Previous left frontotemporal craniotomy and meningioma resection with mild encephalomalacia in the left frontal lobe.
6. Mild diffuse cerebral and cerebellar volume loss.
7. 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
8. Severe multilevel left-sided facet joint arthrosis.
9. Mild paranasal sinus mucosal disease.
CXR: No focal parenchymal opacification to suggest pneumonia.
CT A/P:
1. Suspect focal areas of bilateral pyelonephritis with intrarenal abscess formation within the upper pole right kidney measuring up to 2.9 cm.
2. Intravesical gas suggesting cystitis.
3. Mild to moderate diffuse colonic stool burden may reflect constipation.
CT C-spine: Degenerative changes throughout the cervical spine, most prominent hypertrophic, especially C4-C7 with some resultant central canal stenosis. Cervical spinal cord cannot be assessed with this imaging modality, MRI recommended, if
warranted. No findings to suggest recent cervical spine fracture.
MRI C-spine: Multilevel degenerative changes of the cervical spine as detailed, worst at C4-5 where disc osteophyte complex/uncovering and uncovertebral/facet disease contribute to moderate to severe spinal canal and neural foraminal stenosis at
this level. No cord edema.
A/P:
# Sepsis ?related to BL pyelo and R kidney abscess
# High fever persists.
# Leukocytosis - trending down
-imaging above
-per IR, no adequate fluid to drain at this time
-bcx x 2 neg, CXR x2 no opacity, urine culture Mixed rosa m present/Probable contamination, Babesia smear negative
-Lyme/Anaplasma/Ehrlichia serologies pending
-Follow wbc and temps.
-Cefepime -> ertapenem; cont doxycycline
-ID following
# Expressive aphasia, much resolved
-admitted with persistent word-finding difficulty - symptoms distinct from prior episode (garbled speech, confusion).
-continue ASA/Plavix
-MRI brain without acute CVA
-pt's MS back to her baseline from recent stroke
# Transaminitis, ?related to current infection
CT AP from admission noted liver with normal limit
Trend LFT
Would Hold statin for now
# Acute hypoxemic respiratory insufficiency, resolved
-Likely related to sepsis in the setting of likely undiagnosed VESNA/OHS
-CXR: No active cardiopulmonary disease.
Weaned back to RA
Other problems:
Essential Hypertension: cont Norvasc/Hydralazine/BB/aldactone/ARB (with holding parameters)
DM2: SSI/accuchecks
Hypokalemia, resolved
Hypomagnesemia, resolved
Hypothyroidism: cont Levoxyl.
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
Aortic Stenosis s/p TAVR (01/2023)
Obesity due to excess calories
FULL/SCDs
Anticipated Discharge: > 48 hours
Subjective/Interval History
-
Date of Service: November 01, 2023
Objective Data
-
Vital Signs:
Vital Signs
Temp Pulse Resp BP Pulse Ox
37.1 C 69 16 124/60 95
11/01/23 07:38 11/01/23 09:30 11/01/23 07:38 11/01/23 09:30 11/01/23 07:38
I&O
10/31/23 11/01/23 11/02/23
06:59 06:59 06:59
Intake Total 1080 / 1080 960 / 960
Balance 1080 / 1080 960 / 960
Review of Systems
-
Constitutional: Reports Fever
Physical Exam
-
Neuro: Awake and Alert
Psych: Calm and Intact Judgement/Insight
Data Reviewed
-
Labs: Labs Reviewed by me
[2023-11-01] MEDS: INVANZ 60 MG IV (10:31)
--- NOTE | 2023-11-01 10:58 | W.PN.ID1 ---
Date of Service
Date of Service: November 01, 2023
Today's Communication
TTE.
Broaden abx to Ertapenem.
Assessment / Plan
# Persistent high fevers despite cefepime/doxycycline
# Leukocytosis
# Right renal abscess seen in CT
# Presence of TAVR
- Blood cx's x2 negative
- UA negative
- Ucx (prior to cx) 30k rosa m
- CXR x2 no opacity
-Babesia smear negative. Lyme screen negative.
-Anaplasma/Ehrlichia serologies pending
- Abscess phlegmon not ready for aspiration, per IR.
- Given persistent fevers, ordered TTE to eval for IE.
-Broaden cefepime (d4) to ertapenem.
- Continue empiric doxycycline while waiting for tickborne labs
-Follow temps/wbc
# Conditions prior to admission
DM
HTN
CVA
TAVR (01/2023)
Hypothyroidism
Urinary incontinence
VESNA on CPAP
hx left frontal meningioma resection
Chief Complaint
-: Fever
Subjective / Review of Systems
Still with fevers/chills. Otherwise no focal symptoms.
Vital Signs / Physical Exam
Vital Signs
Vital Signs
Temp Pulse Resp BP Pulse Ox
98.7 F 69 16 124/60 95
11/01/23 07:38 11/01/23 09:30 11/01/23 07:38 11/01/23 09:30 11/01/23 07:38
Selected Entries
11/01/23
03:57
Temp 102.9 F H
Physical Exam
Constitutional: No Acute Distress and Comfortable
Cardiovascular: Regular Rate, S1/S2 and Murmur (3/6 systolic murmur RUSB)
Pulmonary: Clear
Gastrointestinal: Soft, Non Tender and Non Distended
Genito-Urinary: Negative CVA Tenderness
Extremities: Negative Edema
Neurological: AO x 3
Objective Data
Lab Data
Lab Results
10/31/23 06:30
10/31/23 06:30
PT 13.0 Sec (11.4-14.6) 10/27/23 21:12
INR 0.98 10/27/23 21:12
APTT 27.5 Sec (23.4-35.0) 10/27/23 21:12
Estimated Creat Clear 82 ml/min 10/31/23 06:30
Total Bilirubin 1.2 mg/dl (0.2-1.3) 10/31/23 06:30
AST 288 U/L (14-36) H 10/31/23 06:30
ALT 346 U/L (0-35) H 10/31/23 06:30
Alkaline Phosphatase 253 U/L (38-126) H 10/31/23 06:30
Most recent labs reviewed.
Micro Results:
10/28/23 09:13 Blood Culture - Preliminary
Blood/Venous No Growth in 4 days- Final report to follow
10/28/23 03:32 Blood Culture - Preliminary
Blood/Venous No Growth in 4 days- Final report to follow
10/30/23 00:15 Urine Culture - Final
Urine
10/29/23 13:39 Blood Parasites Smear - Final
Blood/Venous
10/28/23 03:47 Influenza Types A & B ([facility]) - Final
Nasal Swab Negative for Influenza A & B, NAAT
Negative results must be combined with clinical observations
and patient history.
Nucleic Acid Amplification test (NAAT)performed on the
[employer] platform.
10/29/23 CT a/p with po and IV contrast: Suspect focal areas of bilateral pyelonephritis with intrarenal abscess formation within the upper pole right kidney measuring up to 2.9 cm. Intravesical gas suggesting cystitis.
10/28/23 MRI brain:
1. No MRI evidence for acute infarct.
2. Small chronic ischemic infarcts in the right cerebellar hemisphere.
3. 6.7 mm chronic ischemic periventricular white matter infarct in the right frontal lobe.
4. Mild white matter leukoaraiosis in the frontal and parietal lobes.
5. Previous left frontotemporal craniotomy and meningioma resection with mild encephalomalacia in the left frontal lobe.
6. Mild diffuse cerebral and cerebellar volume loss.
7. 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
8. Severe multilevel left-sided facet joint arthrosis.
9. Mild paranasal sinus mucosal disease.
10/28/23 CXR 1 view: No focal parenchymal opacification to suggest pneumonia.
[2023-11-01 11:51] LABS: Glucose - Point of Care 121 mg/dl (70-99)
[2023-11-01 13:25] LABS: Ehrlichia chaffeensis IgG Ab <1:64 (<1:64); Ehrlichia chaffeensis IgM Ab < 1:16 (< 1:16)
[2023-11-01 16:36] LABS: Glucose - Point of Care 132 mg/dl (70-99)
[2023-11-01] MEDS: CELEXA 40 MG PO (17:05)
[2023-11-01] MEDS: TOPROL XL 200 MG PO (17:05)
[2023-11-01 18:45] LABS: Anaplasma phagocytophilum IgG <1:80 (<1:80); Anaplasma phagocytophilum IgM < 1:16 (< 1:16)
[2023-11-01] MEDS: APRESOLINE PO (20:26)
[2023-11-01 21:52] LABS: Glucose - Point of Care 139 mg/dl (70-99)
--- NOTE | 2023-11-02 03:20 | DOWNTIME ---
There was a [employer] Vice President Downtime on 11/02/2023 from 0100 to 11/02/2023 at 0255. Downtime documentation of patient's care, including medication administrations, has been reconciled in the electronic record per guidelines. Refer to the
patient's paper chart under the miscellaneous tab to see printed paper medication records and downtime forms.
[2023-11-02] MEDS: SYNTHROID 50 MCG PO (05:49)
[2023-11-02 06:00] VITALS: BMI 31.2
[2023-11-02 07:00] VITALS: BP 147/82
[2023-11-02 07:37] LABS: ALT (SGPT) 185 U/L (0-35); AST (SGOT) 67 U/L (14-36); Albumin 3.3 g/dl (3.5-5.0); Alkaline Phosphatase 233 U/L (38-126); Blood Urea Nitrogen 11 mg/dl (7-17); Calcium 9.2 mg/dl (8.4-10.2); Carbon Dioxide 28 mmol/L (22-30); Chloride 101 mmol/L (98-107); Estimated Creatinine Clearance 82 ml/min; Glucose 117 mg/dl (70-99); Magnesium 1.5 mg/dl (1.6-2.3); Potassium 3.6 mmol/L (3.5-5.1); Sodium 137 mmol/L (135-145); Total Bilirubin 0.8 mg/dl (0.2-1.3); Total Protein 5.6 g/dl (6.3-8.2); eGFR > 60.00
[2023-11-02 07:46] LABS: % Basophils 0.5 % (0-2); % Eosinophils 3.7 % (0-6); % Immature Granulocytes 0.6 % (0-0.5); % Lymphocytes 14.5 % (20.5-51.1); % Monocytes 11.1 % (1.7-9.3); % Neutrophils 69.6 % (42.2-75.2); Absolute Basophils 0.1 10^3/uL (0-0.2); Absolute Eosinophils 0.4 10^3/uL (0-0.7); Absolute Immature Granulocytes 0.1 10^3/uL (0-0.05); Absolute Lymphocytes 1.5 10^3/uL (1.2-3.4); Absolute Monocytes 1.1 10^3/uL (0.1-0.6); Hemoglobin 12.3 g/dL (12.0-16.0); Mean Corp Hgb Conc. 34.2 g/dL (33.0-37.0); Mean Corpuscular Hgb 29.5 pg (27.0-31.0); Mean Corpuscular Volume 86.3 fL (81.0-99.0); Mean Platelet Volume 10.2 fL (7.4-10.4); Nucleated Red Blood Cells % 0 %; Platelet Count 241 10^3/uL (130-400); Red Blood Cell Count 4.17 10^6/uL (4.20-5.40); Red Cell Dist. Width 14.1 % (11.5-14.5); White Blood Cell Count 10.1 10^3/uL (4.8-10.8)
--- NOTE | 2023-11-02 07:52 | W.PN.HOSP.TC ---
Today's Communication/Plan
-
see A/P
Assessment / Plan
Assessment / Plan
Gen: NAD, awake and alert
Eyes: EOMI, PERRLA, no scleral icterus.
Neck: supple.
CV: RRR, +S1/S2, 2/6 systolic murmur
Resp: CTAB anteriorly, no rales, wheezes, or rhonchi.
Abd: +BS, soft, NT, ND
Skin: No rashes.
Neuro: continues to remain CN 2-12 intact, non-focal
Psych: Normal mood and affect.
10/28/23 09:13 Blood/Venous Blood Culture - Preliminary
No Growth in 72 hours- Final report to follow
10/28/23 03:32 Blood/Venous Blood Culture - Preliminary
No Growth in 72 hours- Final report to follow
10/29/23 13:39 Blood/Venous Blood Parasites Smear - Final
10/28/23 03:47 Nasal Swab Influenza Types A & B ([facility]) - Final
Negative for Influenza A & B, NAAT
Negative results must be combined with clinical observations
and patient history.
Nucleic Acid Amplification test (NAAT)performed on the
[employer] platform.
MRI brain:
1. No MRI evidence for acute infarct.
2. Small chronic ischemic infarcts in the right cerebellar hemisphere.
3. 6.7 mm chronic ischemic periventricular white matter infarct in the right frontal lobe.
4. Mild white matter leukoaraiosis in the frontal and parietal lobes.
5. Previous left frontotemporal craniotomy and meningioma resection with mild encephalomalacia in the left frontal lobe.
6. Mild diffuse cerebral and cerebellar volume loss.
7. 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
8. Severe multilevel left-sided facet joint arthrosis.
9. Mild paranasal sinus mucosal disease.
CXR: No focal parenchymal opacification to suggest pneumonia.
CT A/P:
1. Suspect focal areas of bilateral pyelonephritis with intrarenal abscess formation within the upper pole right kidney measuring up to 2.9 cm.
2. Intravesical gas suggesting cystitis.
3. Mild to moderate diffuse colonic stool burden may reflect constipation.
CT C-spine: Degenerative changes throughout the cervical spine, most prominent hypertrophic, especially C4-C7 with some resultant central canal stenosis. Cervical spinal cord cannot be assessed with this imaging modality, MRI recommended, if
warranted. No findings to suggest recent cervical spine fracture.
MRI C-spine: Multilevel degenerative changes of the cervical spine as detailed, worst at C4-5 where disc osteophyte complex/uncovering and uncovertebral/facet disease contribute to moderate to severe spinal canal and neural foraminal stenosis at
this level. No cord edema.
A/P:
# Sepsis ?related to BL pyelo and R kidney abscess
# High fever persisting
# Leukocytosis - trending down/resolving
-imaging above
-per IR, no adequate fluid to drain at this time
-bcx x 2 neg, CXR x2 no opacity, urine culture Mixed rosa m present/Probable contamination, Babesia smear negative
-Lyme/Anaplasma/Ehrlichia serologies negative
-Follow wbc and temps.
-Cefepime -> ertapenem; cont doxycycline
-ID following
# Expressive aphasia, much resolved
-admitted with persistent word-finding difficulty - symptoms distinct from prior episode (garbled speech, confusion).
-continue ASA/Plavix
-MRI brain without acute CVA
-pt's MS is back to her baseline from recent stroke
# Transaminitis, ?related to current infection
CT AP from admission noted liver with normal limit
Trend LFT
Would Hold statin/Zetia for now
# Acute hypoxemic respiratory insufficiency, resolved
-Likely related to sepsis in the setting of likely undiagnosed VESNA/OHS
-CXR: No active cardiopulmonary disease.
-Weaned back to RA
Other problems:
Essential Hypertension: cont Norvasc/Hydralazine/BB/aldactone/ARB (with holding parameters)
DM2: SSI/accuchecks
Hypokalemia, resolved
Hypomagnesemia, resolved
Hypothyroidism: cont Levoxyl.
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
Aortic Stenosis s/p TAVR (01/2023)
Obesity due to excess calories
FULL/SCDs
DW on the phone
Anticipated Discharge: 24 - 48 hours
Subjective/Interval History
-
Date of Service: November 02, 2023
Objective Data
-
Labs:
Laboratory Results
11/02/23
06:38
WBC 10.1
Hgb 12.3
Hct 36.0 L
Plt Count 241
Sodium 137
Potassium 3.6
Chloride 101
Carbon Dioxide 28
BUN 11
Creatinine 0.4 L
Glucose 117 H
Calcium 9.2
Total Bilirubin 0.8
AST 67 H
ALT 185 H
Alkaline Phosphatase 233 H
Vital Signs:
Vital Signs
Temp Pulse Resp BP Pulse Ox
36.8 C 66 16 112/78 96
11/02/23 03:36 11/01/23 23:29 11/01/23 23:29 11/01/23 23:29 11/01/23 23:29
I&O
11/01/23 11/02/23 11/03/23
06:59 06:59 06:59
Intake Total 960 / 960 960 / 960
Balance 960 / 960 960 / 960
Review of Systems
-
Constitutional: Reports Fever (resolving)
Data Reviewed
-
Labs: Labs Reviewed by me
[2023-11-02 08:14] LABS: Glucose - Point of Care 121 mg/dl (70-99)
[2023-11-02] MEDS: DIOVAN 320 MG PO (08:25)
[2023-11-02] MEDS: NORVASC 5 MG PO (08:25)
[2023-11-02] MEDS: ASPIR LOW (ENTERIC COATED) 81 MG PO (08:25)
[2023-11-02] MEDS: VIBRAMYCIN 100 MG PO (08:25)
[2023-11-02] MEDS: ALDACTONE 25 MG PO (08:25)
[2023-11-02] MEDS: APRESOLINE 50 MG PO ×3 (08:25→21:00)
[2023-11-02] MEDS: PLAVIX 75 MG PO (08:25)
[2023-11-02] MEDS: PROTONIX 40 MG PO (08:26)
[2023-11-02] MEDS: INVANZ 60 MG IV (11:05)
[2023-11-02 12:05] LABS: Glucose - Point of Care 147 mg/dl (70-99)
--- NOTE | 2023-11-02 13:20 | W.PN.ID1 ---
Date of Service
Date of Service: November 02, 2023
Today's Communication
CT a/p
blood cx's x 2
Assessment / Plan
# Persistent high fevers despite cefepime (4d)/doxycycline - > Ertapenem/doxy, still febrile
# Leukocytosis - resolved
# Right renal abscess seen in CT
# Presence of TAVR
- 10/28 Blood cx's x2 negative
- UA negative
- Ucx (prior to cx) 30k rosa m
- CXR x2 no opacity
-Babesia smear negative. Lyme screen negative.
- Anaplasma/Ehrlichia serologies negative
-TTE: no gross vegetation.
- Abscess phlegmon not ready for aspiration, per IR.
- Given persistent fevers, repeat CT a/p with/wo contrast to follow abscess for drainage
- Repeat bcx's x2
- repeat UA reflex Ucx for urinary frequency
- Consider LEVON pending CT a/p result
- Continue empiric ertapenem (d2
- Discontinue empiric doxycycline as tickborne labs negative.
-Follow temps
# Conditions prior to admission
DM
HTN
CVA
TAVR (01/2023)
Hypothyroidism
Interstitial cystitis
Urinary incontinence
VESNA on CPAP
hx left frontal meningioma resection
Chief Complaint
-: Fever
Subjective / Review of Systems
C/o shivering chills now. Had urinary incontinence x 3 today.
Vital Signs / Physical Exam
Vital Signs
Vital Signs
Temp Pulse Resp BP Pulse Ox
101 F 77 18 147/82 93
11/02/23 07:00 11/02/23 08:25 11/02/23 07:00 11/02/23 08:25 11/02/23 07:00
Physical Exam
Constitutional: Acutely Ill (shivering under blanket)
Cardiovascular: Regular Rate, S1/S2 and Murmur (systolic RUSB)
Pulmonary: Clear
Gastrointestinal: Soft, Non Tender and Non Distended
Extremities: Negative Edema
Objective Data
Lab Data
Lab Results
11/02/23 06:38
11/02/23 06:38
PT 13.0 Sec (11.4-14.6) 10/27/23 21:12
INR 0.98 10/27/23 21:12
APTT 27.5 Sec (23.4-35.0) 10/27/23 21:12
Estimated Creat Clear 82 ml/min 11/02/23 06:38
Total Bilirubin 0.8 mg/dl (0.2-1.3) 11/02/23 06:38
AST 67 U/L (14-36) H 11/02/23 06:38
ALT 185 U/L (0-35) H 11/02/23 06:38
Alkaline Phosphatase 233 U/L (38-126) H 11/02/23 06:38
Most recent labs reviewed.
Micro Results:
10/28/23 09:13 Blood Culture - Final
Blood/Venous No Growth - Final Report
10/28/23 03:32 Blood Culture - Final
Blood/Venous No Growth - Final Report
10/30/23 00:15 Urine Culture - Final
Urine
10/29/23 13:39 Blood Parasites Smear - Final
Blood/Venous
10/28/23 03:47 Influenza Types A & B ([facility]) - Final
Nasal Swab Negative for Influenza A & B, NAAT
Negative results must be combined with clinical observations
and patient history.
Nucleic Acid Amplification test (NAAT)performed on the
[employer] platform.
10/29/23 CT a/p with po and IV contrast: Suspect focal areas of bilateral pyelonephritis with intrarenal abscess formation within the upper pole right kidney measuring up to 2.9 cm. Intravesical gas suggesting cystitis.
10/28/23 MRI brain:
1. No MRI evidence for acute infarct.
2. Small chronic ischemic infarcts in the right cerebellar hemisphere.
3. 6.7 mm chronic ischemic periventricular white matter infarct in the right frontal lobe.
4. Mild white matter leukoaraiosis in the frontal and parietal lobes.
5. Previous left frontotemporal craniotomy and meningioma resection with mild encephalomalacia in the left frontal lobe.
6. Mild diffuse cerebral and cerebellar volume loss.
7. 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
8. Severe multilevel left-sided facet joint arthrosis.
9. Mild paranasal sinus mucosal disease.
10/28/23 CXR 1 view: No focal parenchymal opacification to suggest pneumonia.
[2023-11-02] MEDS: TYLENOL 650 MG PO (14:29)
[2023-11-02 15:00] VITALS: BP 148/74
--- NOTE | 2023-11-02 15:28 | CM ---
Chart reviewed and counter caser reviewed patient's chart and patient is currently ambulating 100 feet X 2. Plan is to home with outpatient physical therapy.
Plan; Home outpatient therapy.
[2023-11-02 16:59] LABS: Urine Albumin 2+ (Neg - Trace); Urine Bilirubin Negative (Negative); Urine Character Clear (Clear); Urine Color Yellow; Urine Glucose Negative (Negative); Urine Ketone Trace (Negative); Urine Leukocyte Negative (Negative); Urine Nitrite Negative (Negative); Urine Occult Blood 2+ (Negative); Urine Urobilinogen 1+ (Neg - 1+)
[2023-11-02 17:02] LABS: Glucose - Point of Care 143 mg/dl (70-99)
[2023-11-02 17:11] LABS: Urine Bacteria Few (Negative); Urine Red Blood Cell 0-2 /HPF (0-2); Urine White Cell 0-2 /HPF (0-5)
[2023-11-02] MEDS: CELEXA 40 MG PO (17:17)
[2023-11-02] MEDS: TOPROL XL 200 MG PO (17:17)
[2023-11-02 21:57] LABS: Glucose - Point of Care 122 mg/dl (70-99)
[2023-11-02 23:40] VITALS: BP 116/64
[2023-11-03 06:00] VITALS: BMI 31.0
[2023-11-03 06:37] LABS: % Basophils 0.5 % (0-2); % Eosinophils 2.9 % (0-6); % Immature Granulocytes 1.1 % (0-0.5); % Monocytes 13.8 % (1.7-9.3); % Neutrophils 64.7 % (42.2-75.2); Absolute Basophils 0.1 10^3/uL (0-0.2); Absolute Eosinophils 0.3 10^3/uL (0-0.7); Absolute Immature Granulocytes 0.1 10^3/uL (0-0.05); Absolute Lymphocytes 1.9 10^3/uL (1.2-3.4); Absolute Monocytes 1.6 10^3/uL (0.1-0.6); Absolute Neutrophils 7.3 10^3/uL (1.4-6.5); Hematocrit 34.5 % (37.0-47.0); Hemoglobin 11.8 g/dL (12.0-16.0); Mean Corp Hgb Conc. 34.2 g/dL (33.0-37.0); Mean Corpuscular Hgb 28.6 pg (27.0-31.0); Mean Corpuscular Volume 83.7 fL (81.0-99.0); Mean Platelet Volume 9.6 fL (7.4-10.4); Nucleated Red Blood Cells % 0 %; Platelet Count 246 10^3/uL (130-400); Red Blood Cell Count 4.12 10^6/uL (4.20-5.40); Red Cell Dist. Width 14.1 % (11.5-14.5); White Blood Cell Count 11.3 10^3/uL (4.8-10.8)
[2023-11-03 07:10] LABS: ALT (SGPT) 134 U/L (0-35); AST (SGOT) 44 U/L (14-36); Albumin 3.1 g/dl (3.5-5.0); Alkaline Phosphatase 209 U/L (38-126); Blood Urea Nitrogen 11 mg/dl (7-17); Calcium 9.2 mg/dl (8.4-10.2); Carbon Dioxide 26 mmol/L (22-30); Chloride 102 mmol/L (98-107); Estimated Creatinine Clearance 81 ml/min; Glucose 116 mg/dl (70-99); Magnesium 1.4 mg/dl (1.6-2.3); Potassium 3.4 mmol/L (3.5-5.1); Sodium 135 mmol/L (135-145); Total Bilirubin 0.8 mg/dl (0.2-1.3); Total Protein 5.5 g/dl (6.3-8.2); eGFR > 60.00
[2023-11-03] MEDS: NORVASC 5 MG PO (07:35)
[2023-11-03] MEDS: PROTONIX 40 MG PO (07:35)
[2023-11-03] MEDS: ASPIR LOW (ENTERIC COATED) 81 MG PO (07:35)
[2023-11-03] MEDS: PLAVIX 75 MG PO (07:35)
[2023-11-03] MEDS: APRESOLINE 50 MG PO ×3 (07:35→21:23)
[2023-11-03] MEDS: SYNTHROID 50 MCG PO (07:35)
[2023-11-03] MEDS: DIOVAN 320 MG PO (07:36)
[2023-11-03] MEDS: ALDACTONE 25 MG PO (07:36)
[2023-11-03 07:39] VITALS: BP 140/83
[2023-11-03 07:54] LABS: Glucose - Point of Care 130 mg/dl (70-99)
[2023-11-03] MEDS: TYLENOL 650 MG PO (08:20)
--- NOTE | 2023-11-03 10:20 | CON.CAR ---
Addendum entered and electronically signed by Andrea Duque MD 11/03/23 11:54:
73 yo female with PMH of TAVR 01/2023, LBBB is admitted with fever of unknown origin. She has no cardiac complaints. Exam with RRR, II/ systolic murmur at RUSB, no edema. TTE 10/31: EF 65-70%, TAVR with mean gradient 18 mmHg and no AR. Bcx: no
growth. CT shows renal abscess as possible source.
We are consulted for LEVON to rule out endocarditis as fever source.
Discussed with patient and . We will proceed with LEVON in AM.
Original Note:
Consultation
Consultation Request
Date/Time Consultation Requested: 11/03/23918
Date/Time Consultation Performed: 11/03/23 1030
Requesting Provider: Dr. Anderson
Performing Provider: Megan SEAMAN for Dr. Duque
Reason for Consultation: evaluation for LEVON
Medical History
-
Chief Complaint: weakness, speech difficulty, fevers
History of Present Illness:
73 y/o female with severe s/p TAVR 02/03/2023, LBBB, DM2, HTN, stroke, loop monitor in place, and dyslipidemia who is here for evaluation of weakness and speech difficulty 10/27/23, but has had consistent fever. She has evidence for renal abscess.
She has been treated with antibiotics, but fevers continue. We are consulted to evaluate for LEVON in this patient with history of TAVR.
Past Medical History
Past Medical History: HTN, Hypercholesterolemia, NIDDM and Valvular Disease
Social History
Tobacco: Non-Smoker
Family History
Family History: Reviewed & Not Pertinent
Allergies / Home Medications
Allergy/AdvReac Type Severity Reaction Status Date / Time
methenamine Allergy Rash, Verified 05/06/23 13:54
itching
sulfamethoxazole Allergy Rash Verified 05/06/23 13:54
[From Bactrim]
trimethoprim [From Bactrim] Allergy Rash Verified 05/06/23 13:54
�Medication �Instructions �Recorded �Confirmed �Type
citalopram 40 mg tablet 40 mg PO QPM depression/anxiety 12/01/22 10/27/23 History
estradiol 0.01% (0.1 mg/gram) 1 appful vaginal SUWE Hormonal 12/01/22 10/27/23 History
vaginal cream Agent
fenofibrate 160 mg tablet 160 mg PO DAILY High Cholesterol 12/01/22 10/27/23 History
levothyroxine 50 mcg tablet 50 mcg PO MOTUWETHFR Thyroid 12/01/22 10/27/23 History
meloxicam 7.5 mg tablet 7.5 mg PO BID Pain 12/01/22 10/27/23 History
metformin 1,000 mg tablet 1,000 mg PO BID Diabetes 12/01/22 10/27/23 History
metoprolol succinate 200 mg 200 mg PO QPM Heart 12/01/22 10/27/23 History
tablet,extended release 24 hr Disease/Condition
omeprazole 40 mg capsule,delayed 40 mg PO QPM Gastrointestinal Issue 12/01/22 10/27/23 History
release
valsartan 320 1 tab PO DAILY Blood Pressure 12/01/22 10/27/23 History
mg-hydrochlorothiazide 25 mg tablet
levothyroxine 50 mcg tablet 100 mcg PO SUSA Thyroid 04/03/23 10/27/23 History
aspirin 81 mg tablet,delayed 81 mg PO DAILY #30 tabs 04/06/23 10/27/23 Rx
release
Lactobac no.2-Bifidobac no.1-S. 1 cap PO QPM probiotic 10/27/23 10/27/23 History
thermo 112.5 billion cell capsule
(Visbiome)
amlodipine 5 mg tablet 5 mg PO DAILY Blood Pressure 10/27/23 10/27/23 History
atorvastatin 80 mg tablet 80 mg PO QPM High Cholesterol 10/27/23 10/27/23 History
ezetimibe 10 mg tablet 10 mg PO DAILY High Cholesterol 10/27/23 10/27/23 History
hydralazine 50 mg tablet 50 mg PO TID Blood Pressure 10/27/23 10/27/23 History
semaglutide 0.25 mg or 0.5 mg (2 0.5 mg SC WEEKLY diabetes 10/27/23 10/27/23 History
mg/3 mL) subcutaneous pen injector
(Ozempic)
spironolactone 25 mg tablet 25 mg PO DAILY Blood Pressure 10/27/23 10/27/23 History
fluticasone propionate 50 1 spray intranasal HS allergies 10/28/23 10/28/23 History
mcg/actuation nasal
spray,suspension
Review of Systems
-
History Source: Patient
All other systems: Negative unless noted
Constitutional: Fever and Other (originally speech difficulty and weakness as noted)
Physical Exam
Vital Signs
Temp Pulse Resp BP Pulse Ox
100.0 F 74 17 140/83 94
11/03/23 07:39 11/03/23 07:39 11/03/23 07:39 11/03/23 07:39 11/03/23 07:39
Lab Results
11/03/23 06:19
11/03/23 06:19
Troponin I < 0.012 ng/ml 10/27/23 21:12
Physical Exam
General: Well Developed, Well Nourished and No Apparent Distress
HEENT: Normocephalic and Anicteric
Respiratory: Clear and Non Labored Respirations
Cardiac: Regular Rhythm
Skin: Warm and Dry
Neuro: AO x 3
Psych: Calm
Impression / Plan
-
Fever of unclear source:
-on antibiotics
-ID following and recommending LEVON in this patient with hx TAVR. TTE as below. Discussed with patient, who is agreeable. Will arrange for tomorrow.
-there is question of renal abscess as well
Hx Stroke:
-loop in place, no AFIB noted on most recent check
-neuro saw this admit
-on ASA/plavix/statin
LBBB: chronic, stable
HTN:
-on medical therapy
-follow
Data Reviewed
-
EKG: Tracing Personally Visualized and interpreted (SR with LBBB)
Radiology: Report Reviewed by me (No active cardiopulmonary disease.)
Medical Tests (Nuc Med, Echo etc): Report Reviewed by me (Echo 11/01/23: Mild concentric LVH with EF 65-70%. MAC with posterior leaflet calcification. There is mild mitral inflow restriction with mean gradient 3mm Hg. S/P 23mm Kerri S3 TAVR
() with mean gradient 18mm Hg, no AI. Mild TR with mild pulmonary hypertension with estimated PA systolic pres)
Labs: Labs Reviewed by me
[2023-11-03] MEDS: INVANZ 60 MG IV (10:22)
--- NOTE | 2023-11-03 10:35 | W.PN.ID1 ---
Date of Service
Date of Service: November 03, 2023
Today's Communication
LEVON.
IR to attempt drainage of renal 'abscess'
Continue ertapenem.
Follow blood cx's.
Assessment / Plan
# Persistent high fevers despite cefepime (4d)/doxycycline - > Ertapenem still febrile
# Leukocytosis - trended up today
# Right renal abscess seen in CT
# Presence of TAVR
- 10/28 Blood cx's x2 negative
- UA negative x 2
- Ucx (prior to cx) 30k rosa m
- CXR x2 no opacity
-Babesia smear negative. Lyme screen negative.
- Anaplasma/Ehrlichia serologies negative
-TTE: no gross vegetation.
- Initial CT Abscess phlegmon not ready for aspiration, per IR.
- 11/02/[address] a/p stable right renal abscess. Spoke to IR Dr. York who reviewed CT; he doubts it's an abscess but will attempt to aspirate today.
- Follow repeat bcx's x2
- Recommend LEVON for fever of unclear source
- Continue empiric ertapenem (d3)
-Follow temps/wbc
# Conditions prior to admission
DM
HTN
CVA
TAVR (01/2023)
Hypothyroidism
Interstitial cystitis
Urinary incontinence
VESNA on CPAP
hx left frontal meningioma resection
Chief Complaint
-: Fever
Subjective / Review of Systems
Still with chills /fever. No cough. + urinary frequency.
Vital Signs / Physical Exam
Vital Signs
Vital Signs
Temp Pulse Resp BP Pulse Ox
100.0 F 74 17 140/83 94
11/03/23 07:39 11/03/23 07:39 11/03/23 07:39 11/03/23 07:39 11/03/23 07:39
Physical Exam
Constitutional: No Acute Distress and Comfortable
Cardiovascular: Regular Rate, S1/S2 and Murmur (Harsh systolic murmur RUSB)
Pulmonary: Clear
Gastrointestinal: Soft, Non Tender, Non Distended and Normal Bowel Sounds
Genito-Urinary: Negative CVA Tenderness
Extremities: Negative Edema
Musculoskeletal: Negative Joint Swelling, Joint Effusion or Spinal Tenderness
Neurological: AO x 3
Objective Data
Lab Data
Lab Results
11/03/23 06:19
11/03/23 06:19
PT 13.0 Sec (11.4-14.6) 10/27/23 21:12
INR 0.98 10/27/23 21:12
APTT 27.5 Sec (23.4-35.0) 10/27/23 21:12
Estimated Creat Clear 81 ml/min 11/03/23 06:19
Total Bilirubin 0.8 mg/dl (0.2-1.3) 11/03/23 06:19
AST 44 U/L (14-36) H 11/03/23 06:19
ALT 134 U/L (0-35) H 11/03/23 06:19
Alkaline Phosphatase 209 U/L (38-126) H 11/03/23 06:19
Most recent labs reviewed.
Micro Results:
11/02/23 14:33 Blood Culture - Pending
Blood/Venous
11/02/23 14:12 Blood Culture - Pending
Blood/Venous
10/28/23 09:13 Blood Culture - Final
Blood/Venous No Growth - Final Report
10/28/23 03:32 Blood Culture - Final
Blood/Venous No Growth - Final Report
10/30/23 00:15 Urine Culture - Final
Urine
10/29/23 13:39 Blood Parasites Smear - Final
Blood/Venous
10/28/23 03:47 Influenza Types A & B ([facility]) - Final
Nasal Swab Negative for Influenza A & B, NAAT
Negative results must be combined with clinical observations
and patient history.
Nucleic Acid Amplification test (NAAT)performed on the
[employer] platform.
10/29/23 CT a/p with po and IV contrast: Suspect focal areas of bilateral pyelonephritis with intrarenal abscess formation within the upper pole right kidney measuring up to 2.9 cm. Intravesical gas suggesting cystitis.
10/28/23 MRI brain:
1. No MRI evidence for acute infarct.
2. Small chronic ischemic infarcts in the right cerebellar hemisphere.
3. 6.7 mm chronic ischemic periventricular white matter infarct in the right frontal lobe.
4. Mild white matter leukoaraiosis in the frontal and parietal lobes.
5. Previous left frontotemporal craniotomy and meningioma resection with mild encephalomalacia in the left frontal lobe.
6. Mild diffuse cerebral and cerebellar volume loss.
7. 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
8. Severe multilevel left-sided facet joint arthrosis.
9. Mild paranasal sinus mucosal disease.
10/28/23 CXR 1 view: No focal parenchymal opacification to suggest pneumonia.
Care Review
Plan reviewed with: Physician (Dr. Baldemar Anderson)
[2023-11-03 11:45] LABS: Glucose - Point of Care 109 mg/dl (70-99)
--- NOTE | 2023-11-03 15:04 | W.PN.HOSP.TC ---
Today's Communication/Plan
-
for LEVON tomorrow
continue abx per ID
IRAD may attempt drain right renal early suspected abscess
Assessment / Plan
Assessment / Plan
10/28/23 09:13 Blood/Venous Blood Culture - Preliminary
No Growth in 72 hours- Final report to follow
10/28/23 03:32 Blood/Venous Blood Culture - Preliminary
No Growth in 72 hours- Final report to follow
10/29/23 13:39 Blood/Venous Blood Parasites Smear - Final
10/28/23 03:47 Nasal Swab Influenza Types A & B ([facility]) - Final
Negative for Influenza A & B, NAAT
Negative results must be combined with clinical observations
and patient history.
Nucleic Acid Amplification test (NAAT)performed on the
[employer] platform.
MRI brain:
1. No MRI evidence for acute infarct.
2. Small chronic ischemic infarcts in the right cerebellar hemisphere.
3. 6.7 mm chronic ischemic periventricular white matter infarct in the right frontal lobe.
4. Mild white matter leukoaraiosis in the frontal and parietal lobes.
5. Previous left frontotemporal craniotomy and meningioma resection with mild encephalomalacia in the left frontal lobe.
6. Mild diffuse cerebral and cerebellar volume loss.
7. 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
8. Severe multilevel left-sided facet joint arthrosis.
9. Mild paranasal sinus mucosal disease.
CXR: No focal parenchymal opacification to suggest pneumonia.
CT A/P:
1. Suspect focal areas of bilateral pyelonephritis with intrarenal abscess formation within the upper pole right kidney measuring up to 2.9 cm.
2. Intravesical gas suggesting cystitis.
3. Mild to moderate diffuse colonic stool burden may reflect constipation.
CT C-spine: Degenerative changes throughout the cervical spine, most prominent hypertrophic, especially C4-C7 with some resultant central canal stenosis. Cervical spinal cord cannot be assessed with this imaging modality, MRI recommended, if
warranted. No findings to suggest recent cervical spine fracture.
MRI C-spine: Multilevel degenerative changes of the cervical spine as detailed, worst at C4-5 where disc osteophyte complex/uncovering and uncovertebral/facet disease contribute to moderate to severe spinal canal and neural foraminal stenosis at
this level. No cord edema.
CT a/p on 11/02
Small predominantly low-attenuation posterior right renal 'lesion' suspicious for abscess without significant change in size or appearance in comparison to recent prior study.
Few small bubbles of air within the urinary bladder, overall decreased in volume in comparison to recent prior study. Findings could represent cystitis.
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
Small anterior pericardial effusion versus pericardial thickening.

# Sepsis ? related to possible Right kidney abscess/Pyelonephritis
# Leukocytosis - trending down/resolving
-imaging above
-per IR, no adequate fluid to drain at this time
-bcx x 2 neg, CXR x2 no opacity, urine culture Mixed rosa m present/Probable contamination,
-Lyme/Anaplasma/Ehrlichia serology and babesia smear negative
-Follow wbc and temps.
-Cefepime -> ertapenem; cont doxycycline
-cardio consulted for LEVON tomorrow
# Expressive aphasia, much resolved
-admitted with persistent word-finding difficulty - symptoms distinct from prior episode (garbled speech, confusion).
-continue ASA/Plavix
-MRI brain without acute CVA
-pt's MS is back to her baseline from recent stroke
# Transaminitis, ?related to current infection
CT AP from admission noted liver with normal limit
LFT trending down,
Would Hold statin/Zetia for now
# Acute hypoxemic respiratory insufficiency- resolved
-Likely related to sepsis in the setting of likely undiagnosed VESNA/OHS
-CXR: No active cardiopulmonary disease.
-Weaned back to RA
Other problems:
Essential Hypertension: cont Norvasc/Hydralazine/BB/aldactone/ARB (with holding parameters)
DM2: SSI/accuchecks
Hypokalemia, resolved
Hypomagnesemia, resolved
Hypothyroidism: cont Levoxyl.
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
Aortic Stenosis s/p TAVR (01/2023)
Obesity due to excess calories
FULL/SCDs
at bedside and care plan discussed
Anticipated Discharge: > 48 hours
Subjective/Interval History
-
Date of Service: November 03, 2023
no issues overnight
continues to spike fever
Objective Data
-
Labs:
Laboratory Results
11/03/23
06:19
WBC 11.3 H
Hgb 11.8 L
Hct 34.5 L
Plt Count 246
Sodium 135
Potassium 3.4 L
Chloride 102
Carbon Dioxide 26
BUN 11
Creatinine 0.3 L
Glucose 116 H
Calcium 9.2
Total Bilirubin 0.8
AST 44 H
ALT 134 H
Alkaline Phosphatase 209 H
Vital Signs:
Vital Signs
Temp Pulse Resp BP Pulse Ox
98.6 F 74 17 140/83 94
11/03/23 12:00 11/03/23 07:39 11/03/23 07:39 11/03/23 07:39 11/03/23 07:39
I&O
11/02/23 11/03/23 11/04/23
06:59 06:59 06:59
Intake Total 960 / 960 360 / 360
Balance 960 / 960 360 / 360
Review of Systems
-
Respiratory: Reports No Symptoms
Cardiac: Reports No Symptoms
Abdomen/GI: Reports No Symptoms
Physical Exam
-
HEENT: Negative Oxygen
Respiratory: Clear to Auscultation
Cardiac: Regular Rhythm and S1/S2; Negative Murmur
GI: Soft, Nontender and Nondistended
Neuro: Awake, Alert, Oriented and No Motor Deficits
[2023-11-03 15:32] VITALS: BP 149/75
[2023-11-03 16:10] LABS: Glucose - Point of Care 103 mg/dl (70-99)
[2023-11-03] MEDS: CELEXA 40 MG PO (17:08)
[2023-11-03] MEDS: TOPROL XL 200 MG PO (17:08)
[2023-11-03 21:37] LABS: Glucose - Point of Care 168 mg/dl (70-99)
[2023-11-03 23:23] VITALS: BP 131/62
[2023-11-04] MEDS: SYNTHROID 50 MCG PO (05:30)
[2023-11-04 05:35] LABS: Glucose - Point of Care 131 mg/dl (70-99)
[2023-11-04 06:00] VITALS: BMI 31.0
[2023-11-04 07:29] LABS: Glucose - Point of Care 123 mg/dl (70-99)
[2023-11-04 07:38] VITALS: BP 130/72
[2023-11-04 07:47] LABS: Monotest Negative (Negative)
[2023-11-04] MEDS: DIOVAN 320 MG PO (07:55)
[2023-11-04] MEDS: NORVASC 5 MG PO (07:56)
[2023-11-04] MEDS: APRESOLINE 50 MG PO ×3 (07:57→21:38)
[2023-11-04] MEDS: ALDACTONE 25 MG PO (07:57)
[2023-11-04] MEDS: PLAVIX 75 MG PO (07:59)
[2023-11-04] MEDS: ASPIR LOW (ENTERIC COATED) 81 MG PO (07:59)
[2023-11-04] MEDS: PROTONIX PO (07:59)
[2023-11-04 09:54] LABS: Hematocrit 34.1 % (37.0-47.0); Hemoglobin 11.8 g/dL (12.0-16.0); Mean Corp Hgb Conc. 34.6 g/dL (33.0-37.0); Mean Corpuscular Hgb 29.7 pg (27.0-31.0); Mean Corpuscular Volume 85.9 fL (81.0-99.0); Mean Platelet Volume 9.9 fL (7.4-10.4); Platelet Count 274 10^3/uL (130-400); Red Blood Cell Count 3.97 10^6/uL (4.20-5.40); Red Cell Dist. Width 14.1 % (11.5-14.5); White Blood Cell Count 9.5 10^3/uL (4.8-10.8)
[2023-11-04 10:02] LABS: ALT (SGPT) 101 U/L (0-35); AST (SGOT) 35 U/L (14-36); Albumin 3.1 g/dl (3.5-5.0); Alkaline Phosphatase 196 U/L (38-126); Blood Urea Nitrogen 9 mg/dl (7-17); Carbon Dioxide 24 mmol/L (22-30); Chloride 102 mmol/L (98-107); Direct Bilirubin 0.3 mg/dl (0.0-0.4); Estimated Creatinine Clearance 81 ml/min; Glucose 114 mg/dl (70-99); Potassium 3.4 mmol/L (3.5-5.1); Sodium 136 mmol/L (135-145); Total Bilirubin 0.7 mg/dl (0.2-1.3); Total Protein 5.5 g/dl (6.3-8.2); eGFR > 60.00
[2023-11-04] MEDS: INVANZ 60 MG IV (10:10)
--- NOTE | 2023-11-04 10:57 | W.PN.CD ---
Today's Communication / Plan
-
feeling better today. temp 99
plan for LEVON today
procedure and riss reviewed and patietnhas agreed to proceed
Impression / Plan
-
Fever
-Initially unclear.
-Abd CT suspicious for right renal abcess
- monitor BC
- abx per primaryteam and ID
-Plan for LEVON to evaluate TAVR and assess for endocarditis
-
Hx Stroke:
-loop in place, no AFIB noted on most recent check
-neuro saw this admit
-on ASA/plavix/statin
LBBB: chronic, stable
HTN:
-on medical therapy
-follow
Physical Exam
Vital Signs/Labs
Vital Signs
Temp Pulse Resp BP Pulse Ox
99.5 F 68 17 130/72 97
11/04/23 07:38 11/04/23 07:38 11/04/23 07:38 11/04/23 07:38 11/04/23 07:38
11/03/23 11/04/23 11/05/23
06:59 06:59 06:59
Actual Weight 76.793 kg 76.856 kg
11/04/23 06:17
11/04/23 06:17
PT 13.0 Sec (11.4-14.6) 10/27/23 21:12
INR 0.98 10/27/23 21:12
APTT 27.5 Sec (23.4-35.0) 10/27/23 21:12
Magnesium 1.4 mg/dl (1.6-2.3) L 11/03/23 06:19
Physical Exam
Constitutional: No acute distress
Cardiovascular: Rhythm & rate is regular and Systolic murmur present
Respiratory: Wheeze Absent and Rhonchi Absent
GI: Soft and Non tender
Neuro/Psych: Alert and AO x 3
Data Reviewed
-
Date of Service: November 04, 2023
Medical Decision Making: Reviewed Test Results
X-Ray/CT/US/MRI/NUC/PET: Report Reviewed by me
Medical Tests (PFT, Pathology etc): Report Reviewed by me
--- NOTE | 2023-11-04 12:19 | W.PN.UPDATE ---
Update Note
Progress Note Update
LEVON- full report to follow. TAVR leaflets appear normal with no AR, MAC and mild TR. , normal tricuspid and pulmonic valves. No clear signs of endocarditis
[2023-11-04 12:45] VITALS: BP 142/62
[2023-11-04 12:51] LABS: Glucose - Point of Care 102 mg/dl (70-99)
--- NOTE | 2023-11-04 12:54 | W.PN.HOSP.TC ---
Today's Communication/Plan
-
LEVON neg
IRAD to attempt drainage
achieving effervescence on invanz
Assessment / Plan
Assessment / Plan
10/28/23 09:13 Blood/Venous Blood Culture - Preliminary
No Growth in 72 hours- Final report to follow
10/28/23 03:32 Blood/Venous Blood Culture - Preliminary
No Growth in 72 hours- Final report to follow
10/29/23 13:39 Blood/Venous Blood Parasites Smear - Final
10/28/23 03:47 Nasal Swab Influenza Types A & B ([facility]) - Final
Negative for Influenza A & B, NAAT
Negative results must be combined with clinical observations
and patient history.
Nucleic Acid Amplification test (NAAT)performed on the
[employer] platform.
MRI brain:
1. No MRI evidence for acute infarct.
2. Small chronic ischemic infarcts in the right cerebellar hemisphere.
3. 6.7 mm chronic ischemic periventricular white matter infarct in the right frontal lobe.
4. Mild white matter leukoaraiosis in the frontal and parietal lobes.
5. Previous left frontotemporal craniotomy and meningioma resection with mild encephalomalacia in the left frontal lobe.
6. Mild diffuse cerebral and cerebellar volume loss.
7. 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
8. Severe multilevel left-sided facet joint arthrosis.
9. Mild paranasal sinus mucosal disease.
CXR: No focal parenchymal opacification to suggest pneumonia.
CT A/P:
1. Suspect focal areas of bilateral pyelonephritis with intrarenal abscess formation within the upper pole right kidney measuring up to 2.9 cm.
2. Intravesical gas suggesting cystitis.
3. Mild to moderate diffuse colonic stool burden may reflect constipation.
CT C-spine: Degenerative changes throughout the cervical spine, most prominent hypertrophic, especially C4-C7 with some resultant central canal stenosis. Cervical spinal cord cannot be assessed with this imaging modality, MRI recommended, if
warranted. No findings to suggest recent cervical spine fracture.
MRI C-spine: Multilevel degenerative changes of the cervical spine as detailed, worst at C4-5 where disc osteophyte complex/uncovering and uncovertebral/facet disease contribute to moderate to severe spinal canal and neural foraminal stenosis at
this level. No cord edema.
CT a/p on 11/02
Small predominantly low-attenuation posterior right renal 'lesion' suspicious for abscess without significant change in size or appearance in comparison to recent prior study.
Few small bubbles of air within the urinary bladder, overall decreased in volume in comparison to recent prior study. Findings could represent cystitis.
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
Small anterior pericardial effusion versus pericardial thickening.

# Sepsis ? related to possible Right kidney abscess/Pyelonephritis
# Leukocytosis - trending down/resolving
-imaging above
-per IR, no adequate fluid to drain at this time
-bcx x 2 neg, CXR x2 no opacity, urine culture Mixed rosa m present/Probable contamination,
-Lyme/Anaplasma/Ehrlichia serology and babesia smear negative
-Follow wbc and temps.
-Cefepime -> changed to ertapenem, day 4, remains afebrile for last 48hrs
-LEVON did not show any abnormalities
# Expressive aphasia, much resolved
-admitted with persistent word-finding difficulty - symptoms distinct from prior episode (garbled speech, confusion).
-continue ASA/Plavix
-MRI brain without acute CVA
-pt's MS is back to her baseline from recent stroke
# Transaminitis, ?related to current infection
CT AP from admission noted liver with normal limit
LFT trending down,
Would Hold statin/Zetia for now
# Acute hypoxemic respiratory insufficiency- resolved
-Likely related to sepsis in the setting of likely undiagnosed VESNA/OHS
-CXR: No active cardiopulmonary disease.
-Weaned back to RA
Other problems:
Essential Hypertension: cont Norvasc/Hydralazine/BB/aldactone/ARB (with holding parameters)
DM2: SSI/accuchecks
Hypokalemia, resolved
Hypomagnesemia, resolved
Hypothyroidism: cont Levoxyl.
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
Aortic Stenosis s/p TAVR (01/2023)
Obesity due to excess calories
FULL/SCDs
at bedside and care plan discussed 11/02
Anticipated Discharge: 24 - 48 hours
Subjective/Interval History
-
Date of Service: November 04, 2023
afebrile overnight
no abd pain/nausea/vomiting
Objective Data
-
Labs:
Laboratory Results
11/04/23
06:17
WBC 9.5
Hgb 11.8 L
Hct 34.1 L
Plt Count 274
Sodium 136
Potassium 3.4 L
Chloride 102
Carbon Dioxide 24
BUN 9
Creatinine 0.4 L
Glucose 114 H
Calcium 9.0
Total Bilirubin 0.7
AST 35
ALT 101 H
Alkaline Phosphatase 196 H
Vital Signs:
Vital Signs
Temp Pulse Resp BP Pulse Ox
98.8 F 69 17 142/62 94
11/04/23 12:45 11/04/23 12:45 11/04/23 12:45 11/04/23 12:45 11/04/23 12:45
I&O
11/03/23 11/04/23 11/05/23
06:59 06:59 06:59
Intake Total 360 / 360 570 / 570
Balance 360 / 360 570 / 570
Review of Systems
-
Respiratory: Reports No Symptoms
Cardiac: Reports No Symptoms
Abdomen/GI: Reports No Symptoms
Physical Exam
-
General: Obese
HEENT: Negative Oxygen
Respiratory: Clear to Auscultation
Cardiac: Regular Rhythm and S1/S2; Negative Murmur
GI: Soft, Nontender and Nondistended
Neuro: Awake, Alert, Oriented and No Motor Deficits
[2023-11-04 13:15] VITALS: BP 141/73
--- NOTE | 2023-11-04 13:50 | W.PN.ID1 ---
Date of Service
Date of Service: November 04, 2023
Today's Communication
- Continue empiric ertapenem (d4)
Assessment / Plan
# Persistent high fevers despite cefepime (4d)/doxycycline - > resolved with Ertapenem
# Leukocytosis - improving
# Right renal abscess seen in CT
# Presence of TAVR
- 10/28 Blood cx's x2 negative
- UA negative x 2
- Ucx (prior to cx) 30k rosa m
- CXR x2 no opacity
- Babesia smear negative. Lyme screen negative.
- Anaplasma/Ehrlichia serologies negative
-TTE: no gross vegetation; LEVON no vegetation
- Initial CT Abscess phlegmon not ready for aspiration, per IR.
- 11/02/[address] a/p stable right renal abscess. Spoke to IR Dr. York who reviewed CT; he doubts it's an abscess but will attempt to aspirate today.
- Follow repeat bcx's x2 - no growth to date
- Continue empiric ertapenem (d4)
-Follow temps/wbc
# Conditions prior to admission
DM
HTN
CVA
TAVR (01/2023)
Hypothyroidism
Interstitial cystitis
Urinary incontinence
VESNA on CPAP
hx left frontal meningioma resection
Chief Complaint
-: Fever
Subjective / Review of Systems
fever may be resolving
bp stable
wbc 9.5
cr 0.4
10/29 culture finalized - cannot add on ID or sensi at this time
'I feel much better'
Vital Signs / Physical Exam
Vital Signs
Vital Signs
Temp Pulse Resp BP Pulse Ox
98.8 F 73 16 141/73 96
11/04/23 13:15 11/04/23 13:15 11/04/23 13:15 11/04/23 13:15 11/04/23 13:15
Physical Exam
Constitutional: No Acute Distress
Cardiovascular: Regular Rate
Pulmonary: Symmetric and Non Labored
Gastrointestinal: Non Distended
Skin: Warm and Dry; Negative Rash or Jaundice
Objective Data
Lab Data
Lab Results
11/04/23 06:17
11/04/23 06:17
PT 13.0 Sec (11.4-14.6) 10/27/23 21:12
INR 0.98 10/27/23 21:12
APTT 27.5 Sec (23.4-35.0) 10/27/23 21:12
Estimated Creat Clear 81 ml/min 11/04/23 06:17
Total Bilirubin 0.7 mg/dl (0.2-1.3) 11/04/23 06:17
AST 35 U/L (14-36) 11/04/23 06:17
ALT 101 U/L (0-35) H 11/04/23 06:17
Alkaline Phosphatase 196 U/L (38-126) H 11/04/23 06:17
Most recent labs reviewed.
Micro Results:
11/02/23 14:33 Blood Culture - Preliminary
Blood/Venous No Growth in 24 hours- Final report to follow
11/02/23 14:12 Blood Culture - Preliminary
Blood/Venous No Growth in 24 hours- Final report to follow
10/28/23 09:13 Blood Culture - Final
Blood/Venous No Growth - Final Report
10/28/23 03:32 Blood Culture - Final
Blood/Venous No Growth - Final Report
10/30/23 00:15 Urine Culture - Final
Urine
10/29/23 13:39 Blood Parasites Smear - Final
Blood/Venous
10/28/23 03:47 Influenza Types A & B ([facility]) - Final
Nasal Swab Negative for Influenza A & B, NAAT
Negative results must be combined with clinical observations
and patient history.
Nucleic Acid Amplification test (NAAT)performed on the
[employer] platform.
10/29/23 CT a/p with po and IV contrast: Suspect focal areas of bilateral pyelonephritis with intrarenal abscess formation within the upper pole right kidney measuring up to 2.9 cm. Intravesical gas suggesting cystitis.
10/28/23 MRI brain:
1. No MRI evidence for acute infarct.
2. Small chronic ischemic infarcts in the right cerebellar hemisphere.
3. 6.7 mm chronic ischemic periventricular white matter infarct in the right frontal lobe.
4. Mild white matter leukoaraiosis in the frontal and parietal lobes.
5. Previous left frontotemporal craniotomy and meningioma resection with mild encephalomalacia in the left frontal lobe.
6. Mild diffuse cerebral and cerebellar volume loss.
7. 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
8. Severe multilevel left-sided facet joint arthrosis.
9. Mild paranasal sinus mucosal disease.
10/28/23 CXR 1 view: No focal parenchymal opacification to suggest pneumonia.
Care Review
Plan reviewed with: Physician (Dr Duffy and Dr Marc - LEVON results)
[2023-11-04 15:48] VITALS: BP 122/58
[2023-11-04 16:42] LABS: Glucose - Point of Care 135 mg/dl (70-99)
[2023-11-04] MEDS: NOVOLOG FLEXPEN-LOW RESISTANCE SC (16:45)
[2023-11-04] MEDS: CELEXA 40 MG PO (17:00)
[2023-11-04] MEDS: TOPROL XL 200 MG PO (17:00)
[2023-11-04 19:24] VITALS: BP 135/70
[2023-11-04 23:31] VITALS: BP 150/60
[2023-11-05] VITALS (13 sets, daily range): BP systolic 76–161; BP diastolic 53–84
[2023-11-05] MEDS: SYNTHROID 100 MCG PO (06:13)
[2023-11-05 07:52] LABS: Hematocrit 34.4 % (37.0-47.0); Hemoglobin 11.7 g/dL (12.0-16.0); Mean Corpuscular Hgb 28.6 pg (27.0-31.0); Mean Corpuscular Volume 84.1 fL (81.0-99.0); Mean Platelet Volume 9.5 fL (7.4-10.4); Platelet Count 329 10^3/uL (130-400); Red Blood Cell Count 4.09 10^6/uL (4.20-5.40)
[2023-11-05 08:02] LABS: Calcium 9.1 mg/dl (8.4-10.2); Carbon Dioxide 25 mmol/L (22-30); Estimated Creatinine Clearance 81 ml/min; Potassium 3.7 mmol/L (3.5-5.1); eGFR > 60.00
[2023-11-05 08:05] LABS: Glucose - Point of Care 129 mg/dl (70-99)
[2023-11-05 08:15] LABS: Blood Urea Nitrogen 9 mg/dl (7-17); Chloride 105 mmol/L (98-107); Glucose 121 mg/dl (70-99); Sodium 138 mmol/L (135-145)
--- NOTE | 2023-11-05 08:56 | W.PN.HOSP.TC ---
Today's Communication/Plan
-
see bold
Assessment / Plan
Assessment / Plan
Gen: tremulous, AAOx3.
Eyes: EOMI, PERRLA, no scleral icterus.
Neck: supple.
CV: RRR, +S1/S2, no m/r/g.
Resp: CTAB, no rales, wheezes, or rhonchi.
Abd: +BS, soft, NT, ND, R-sided perinephric drain with bloody drainage
Skin: No rashes.
Neuro: CN 2-12 intact, non-focal.
Psych: Normal mood and affect.
11/02/23 14:33 Blood/Venous Blood Culture - Preliminary
No Growth in 48 hours- Final report to follow
11/02/23 14:12 Blood/Venous Blood Culture - Preliminary
No Growth in 48 hours- Final report to follow
10/28/23 09:13 Blood/Venous Blood Culture - Final
No Growth - Final Report
10/28/23 03:32 Blood/Venous Blood Culture - Final
No Growth - Final Report
10/30/23 00:15 Urine Urine Culture - Final
10/29/23 13:39 Blood/Venous Blood Parasites Smear - Final
10/28/23 03:47 Nasal Swab Influenza Types A & B ([facility]) - Final
Negative for Influenza A & B, NAAT
Negative results must be combined with clinical observations
and patient history.
Nucleic Acid Amplification test (NAAT)performed on the
[employer] platform.
MRI brain:
1. No MRI evidence for acute infarct.
2. Small chronic ischemic infarcts in the right cerebellar hemisphere.
3. 6.7 mm chronic ischemic periventricular white matter infarct in the right frontal lobe.
4. Mild white matter leukoaraiosis in the frontal and parietal lobes.
5. Previous left frontotemporal craniotomy and meningioma resection with mild encephalomalacia in the left frontal lobe.
6. Mild diffuse cerebral and cerebellar volume loss.
7. 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
8. Severe multilevel left-sided facet joint arthrosis.
9. Mild paranasal sinus mucosal disease.
CXR: No focal parenchymal opacification to suggest pneumonia.
CT A/P:
1. Suspect focal areas of bilateral pyelonephritis with intrarenal abscess formation within the upper pole right kidney measuring up to 2.9 cm.
2. Intravesical gas suggesting cystitis.
3. Mild to moderate diffuse colonic stool burden may reflect constipation.
CT C-spine: Degenerative changes throughout the cervical spine, most prominent hypertrophic, especially C4-C7 with some resultant central canal stenosis. Cervical spinal cord cannot be assessed with this imaging modality, MRI recommended, if
warranted. No findings to suggest recent cervical spine fracture.
MRI C-spine: Multilevel degenerative changes of the cervical spine as detailed, worst at C4-5 where disc osteophyte complex/uncovering and uncovertebral/facet disease contribute to moderate to severe spinal canal and neural foraminal stenosis at
this level. No cord edema.
CT A/P 11/03/23
Small predominantly low-attenuation posterior right renal 'lesion' suspicious for abscess without significant change in size or appearance in comparison to recent prior study.
Few small bubbles of air within the urinary bladder, overall decreased in volume in comparison to recent prior study. Findings could represent cystitis.
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
Small anterior pericardial effusion versus pericardial thickening.
Echo: EF 55-60%. TAVR. Leaflets appear normal. No aortic regurgitation. Mild MR/TR.
Sepsis due to possible Right kidney abscess/Pyelonephritis:
-Leukocytosis has resolved
-imaging above
-per IR, no adequate fluid to drain at this time
-All culture data negative as above
-Lyme/Anaplasma/Ehrlichia serology and Babesia smear negative
-last fever 11/02/23 afternoon
-was on Cefepime, now on Invanz
-LEVON above, no vegetation
-s/p R perinephric drain placement 11/05/23. Currently with rigors, likely related to the procedure. Follow fluid Cx.
Expressive aphasia, much resolved
-admitted with persistent word-finding difficulty - symptoms distinct from prior episode (garbled speech, confusion).
-continue ASA/Plavix
-MRI brain without acute CVA
-pt's MS is back to her baseline from recent stroke
Transaminitis:
-likely related to current infection
-CT A/P from admission noted liver with normal limit
-LFT trending down
-holding statin/Zetia for now
Acute hypoxemic respiratory insufficiency:
-now resolved
-Likely related to sepsis in the setting of likely undiagnosed VESNA/OHS
-CXR: No active cardiopulmonary disease.
-Weaned back to RA
Other problems:
Essential Hypertension: cont Norvasc/Hydralazine/BB/aldactone/ARB (with holding parameters)
DM2: SSI/accuchecks
Hypokalemia, resolved
Hypomagnesemia, recheck Mg
Hypothyroidism: cont Levoxyl.
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
Aortic Stenosis s/p TAVR (01/2023)
Obesity due to excess calories
RN updated.
and daughter updated at bedside.
FULL/SCDs
Total time spent on today's encounter was 50 minutes which included time spent in counseling the patient/family regarding diagnosis and treatment plan as listed above, goals of care, and symptom management. Case was discussed with nursing staff,
specialists, and care coordinators/case management. All labs and imaging personally reviewed by me. Remainder the time spent in detailed review of previous records, lab data, imaging, and other medical provider documentation.
Anticipated Discharge: 24 - 48 hours
Subjective/Interval History
-
Date of Service: November 05, 2023
c/o chills
Objective Data
-
Labs:
Laboratory Results
11/05/23
06:49
WBC 8.0
Hgb 11.7 L
Hct 34.4 L
Plt Count 329 D
Sodium 138
Potassium 3.7
Chloride 105
Carbon Dioxide 25
BUN 9
Creatinine 0.4 L
Glucose 121 H
Calcium 9.1
Vital Signs:
Vital Signs
Temp Pulse Resp BP Pulse Ox
99.2 F 70 18 157/71 94
11/05/23 03:17 11/05/23 03:17 11/05/23 03:17 11/05/23 03:17 11/05/23 03:17
I&O
11/04/23 11/05/23 11/06/23
06:59 06:59 06:59
Intake Total 570 / 570 600 / 600
Balance 570 / 570 600 / 600
[2023-11-05] MEDS: NOVOLOG FLEXPEN-LOW RESISTANCE SC ×2 (09:00→12:51)
--- NOTE | 2023-11-05 10:00 | W.PN.UPDATE ---
Update Note
Progress Note Update
Right perinephric drain placed, yielding 10 cc of old dark blood products. Likely hemorrhagic cyst rather than renal abscess. Sent fluid for C+S, if fluid shows no growth the drain can be removed.
[2023-11-05] MEDS: INVANZ 60 MG IV (11:14)
[2023-11-05] MEDS: TYLENOL 650 MG PO ×3 (11:14→20:20)
[2023-11-05] MEDS: DIOVAN 320 MG PO (11:47)
[2023-11-05] MEDS: ALDACTONE 25 MG PO (11:47)
[2023-11-05] MEDS: NORVASC 5 MG PO (11:47)
[2023-11-05] MEDS: APRESOLINE 50 MG PO ×2 (11:47→23:05)
[2023-11-05] MEDS: DILAUDID 0.5 MG IV ×2 (11:50→18:38)
--- NOTE | 2023-11-05 12:03 | PTCARENOTE ---
PT received from IR. PT with 8/10 pain in right flank area with severe gas like pressure. PT with visible rigors Temp 99.3. Tylenol given kimberly, Abx hung. Surgical site CDI no drainage noted. FRANCOIS tube with fresh blood filled 1[address] I called
IR and spoke with MD. he stated this is expected post procedure. I spoke with DR Garvey and he ordered IV dilaudid. Re assessment note pt without rigors dilaudid given and pt now resting comfortable. There is no more blood noted in Francois tube. Family at
bedside.
[2023-11-05 12:17] LABS: Glucose - Point of Care 137 mg/dl (70-99)
[2023-11-05] MEDS: PLAVIX 75 MG PO (12:51)
[2023-11-05] MEDS: PROTONIX 40 MG PO (12:51)
[2023-11-05] MEDS: ASPIR LOW (ENTERIC COATED) 81 MG PO (12:51)
[2023-11-05 13:05] LABS: Magnesium 1.5 mg/dl (1.6-2.3)
--- NOTE | 2023-11-05 13:28 | W.PN.ID1 ---
Date of Service
Date of Service: November 05, 2023
Today's Communication
Continue antibiotics.
Assessment / Plan
# Persistent high fevers despite cefepime (4d)/doxycycline - > resolved with Ertapenem
# Leukocytosis - improving
# Right renal collection seen on CT
- s/p drainage
# Presence of TAVR
- 10/28 Blood cx's x2 negative
- UA negative x 2
- Ucx (prior to cx) 30k rosa m
- CXR x2 no opacity
- Babesia smear negative. Lyme screen negative.
- Anaplasma/Ehrlichia serologies negative
-TTE: no gross vegetation; LEVON no vegetation
- Follow repeat bcx's x2 - no growth to date
- Continue empiric ertapenem (d#5)
-Follow temps/wbc
# Conditions prior to admission
DM
HTN
CVA
TAVR (01/2023)
Hypothyroidism
Interstitial cystitis
Urinary incontinence
VESNA on CPAP
hx left frontal meningioma resection
Chief Complaint
-: Fever
Subjective / Review of Systems
Patient seen and examined. Status post drainage of perinephric fluid with recovery 10 cc dark blood products. Patient reportedly had a reaction during the time of drain placement, but at this time is doing well.
Vital Signs / Physical Exam
Vital Signs
Vital Signs
Temp Pulse Resp BP Pulse Ox
99.0 F 82 20 144/80 98
11/05/23 12:06 11/05/23 12:06 11/05/23 12:06 11/05/23 12:06 11/05/23 12:06
Physical Exam
Constitutional: No Acute Distress, Comfortable and Non-toxic
Eyes: Sclera Anicteric
Pulmonary: Symmetric and Non Labored
Gastrointestinal: Non Distended and Other (Right-sided drain in place with bloody drainage.)
Skin: Warm and Dry; Negative Rash or Jaundice
Neurological: Awake and Alert
Psychological: Calm
Objective Data
Lab Data
Lab Results
11/05/23 06:49
11/05/23 06:49
PT 13.0 Sec (11.4-14.6) 10/27/23 21:12
INR 0.98 10/27/23 21:12
APTT 27.5 Sec (23.4-35.0) 10/27/23 21:12
Estimated Creat Clear 81 ml/min 11/05/23 06:49
Total Bilirubin 0.7 mg/dl (0.2-1.3) 11/04/23 06:17
AST 35 U/L (14-36) 11/04/23 06:17
ALT 101 U/L (0-35) H 11/04/23 06:17
Alkaline Phosphatase 196 U/L (38-126) H 11/04/23 06:17
Most recent labs reviewed.
Micro Results:
11/05/23 09:55 Body Fluid Culture - Pending
Fluid Gram Stain - Pending
11/02/23 14:33 Blood Culture - Preliminary
Blood/Venous No Growth in 48 hours- Final report to follow
11/02/23 14:12 Blood Culture - Preliminary
Blood/Venous No Growth in 48 hours- Final report to follow
10/28/23 09:13 Blood Culture - Final
Blood/Venous No Growth - Final Report
10/28/23 03:32 Blood Culture - Final
Blood/Venous No Growth - Final Report
10/30/23 00:15 Urine Culture - Final
Urine
10/29/23 13:39 Blood Parasites Smear - Final
Blood/Venous
10/28/23 03:47 Influenza Types A & B ([facility]) - Final
Nasal Swab Negative for Influenza A & B, NAAT
Negative results must be combined with clinical observations
and patient history.
Nucleic Acid Amplification test (NAAT)performed on the
[employer] platform.
10/29/23 CT a/p with po and IV contrast: Suspect focal areas of bilateral pyelonephritis with intrarenal abscess formation within the upper pole right kidney measuring up to 2.9 cm. Intravesical gas suggesting cystitis.
10/28/23 MRI brain:
1. No MRI evidence for acute infarct.
2. Small chronic ischemic infarcts in the right cerebellar hemisphere.
3. 6.7 mm chronic ischemic periventricular white matter infarct in the right frontal lobe.
4. Mild white matter leukoaraiosis in the frontal and parietal lobes.
5. Previous left frontotemporal craniotomy and meningioma resection with mild encephalomalacia in the left frontal lobe.
6. Mild diffuse cerebral and cerebellar volume loss.
7. 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
8. Severe multilevel left-sided facet joint arthrosis.
9. Mild paranasal sinus mucosal disease.
10/28/23 CXR 1 view: No focal parenchymal opacification to suggest pneumonia.
[2023-11-05] MEDS: CELEXA 40 MG PO (16:07)
[2023-11-05] MEDS: APRESOLINE PO (16:08)
--- NOTE | 2023-11-05 16:08 | CHAP ---
Tonja said she is grateful to be doing better. We talked about her beautiful biblical name - 'I am blessed to be part of two beautiful families,' she said. She welcomed prayer - I asked God's blessings for her, her family and the med staff.
--- NOTE | 2023-11-05 16:26 | PTCARENOTE ---
Temp at 1500 was 101.2. PT happy feels good, not warm. At 1600 I rechecked temp for 99.7 and gave her tylenol at her request for arthritic pain. PT continues to feel pretty good and denies any fever or myalgias . I did alert Dr Garvey of these
findings
[2023-11-05 16:47] LABS: Glucose - Point of Care 167 mg/dl (70-99)
[2023-11-05] MEDS: NOVOLOG FLEXPEN-LOW RESISTANCE 1 UNITS SC (17:16)
[2023-11-05] MEDS: TOPROL XL 200 MG PO (17:20)
[2023-11-05 21:44] LABS: Glucose - Point of Care 161 mg/dl (70-99)
[2023-11-06] VITALS (7 sets, daily range): BP systolic 124–152; BP diastolic 62–72; PULSE 73; BMI 31.1
[2023-11-06] MEDS: DILAUDID 0.5 MG IV (03:09)
[2023-11-06] MEDS: SYNTHROID 100 MCG PO (05:51)
[2023-11-06 07:14] LABS: Hematocrit 33.7 % (37.0-47.0); Hemoglobin 11.5 g/dL (12.0-16.0); Mean Corp Hgb Conc. 34.1 g/dL (33.0-37.0); Mean Corpuscular Hgb 29.6 pg (27.0-31.0); Mean Corpuscular Volume 86.6 fL (81.0-99.0); Mean Platelet Volume 9.5 fL (7.4-10.4); Platelet Count 289 10^3/uL (130-400); Red Blood Cell Count 3.89 10^6/uL (4.20-5.40); Red Cell Dist. Width 14.1 % (11.5-14.5); White Blood Cell Count 13.7 10^3/uL (4.8-10.8)
[2023-11-06 07:38] LABS: Blood Urea Nitrogen 11 mg/dl (7-17); Calcium 8.8 mg/dl (8.4-10.2); Carbon Dioxide 25 mmol/L (22-30); Chloride 100 mmol/L (98-107); Estimated Creatinine Clearance 82 ml/min; Glucose 126 mg/dl (70-99); Potassium 3.7 mmol/L (3.5-5.1); Sodium 134 mmol/L (135-145); eGFR > 60.00
[2023-11-06 07:48] LABS: Glucose - Point of Care 129 mg/dl (70-99)
[2023-11-06] MEDS: NOVOLOG FLEXPEN-LOW RESISTANCE SC ×2 (08:14→17:15)
--- NOTE | 2023-11-06 09:33 | W.PN.HOSP.TC ---
Today's Communication/Plan
-
see bold
Assessment / Plan
Assessment / Plan
Gen: NAD, AAOx3.
Eyes: EOMI, PERRLA, no scleral icterus.
Neck: supple.
CV: RRR, +S1/S2, 2/6 systolic murmur
Resp: CTAB, no rales, wheezes, or rhonchi.
Abd: +BS, soft, NT, ND
Skin: No rashes.
Neuro: CN 2-12 intact, non-focal.
Psych: Normal mood and affect.
11/02/23 14:33 Blood/Venous Blood Culture - Preliminary
No Growth in 72 hours- Final report to follow
11/02/23 14:12 Blood/Venous Blood Culture - Preliminary
No Growth in 72 hours- Final report to follow
11/05/23 09:55 Fluid Gram Stain - Preliminary
10/28/23 09:13 Blood/Venous Blood Culture - Final
No Growth - Final Report
10/28/23 03:32 Blood/Venous Blood Culture - Final
No Growth - Final Report
10/30/23 00:15 Urine Urine Culture - Final
10/29/23 13:39 Blood/Venous Blood Parasites Smear - Final
10/28/23 03:47 Nasal Swab Influenza Types A & B ([facility]) - Final
Negative for Influenza A & B, NAAT
Negative results must be combined with clinical observations
and patient history.
Nucleic Acid Amplification test (NAAT)performed on the
[employer] platform.
MRI brain:
1. No MRI evidence for acute infarct.
2. Small chronic ischemic infarcts in the right cerebellar hemisphere.
3. 6.7 mm chronic ischemic periventricular white matter infarct in the right frontal lobe.
4. Mild white matter leukoaraiosis in the frontal and parietal lobes.
5. Previous left frontotemporal craniotomy and meningioma resection with mild encephalomalacia in the left frontal lobe.
6. Mild diffuse cerebral and cerebellar volume loss.
7. 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
8. Severe multilevel left-sided facet joint arthrosis.
9. Mild paranasal sinus mucosal disease.
CXR: No focal parenchymal opacification to suggest pneumonia.
CT A/P:
1. Suspect focal areas of bilateral pyelonephritis with intrarenal abscess formation within the upper pole right kidney measuring up to 2.9 cm.
2. Intravesical gas suggesting cystitis.
3. Mild to moderate diffuse colonic stool burden may reflect constipation.
CT C-spine: Degenerative changes throughout the cervical spine, most prominent hypertrophic, especially C4-C7 with some resultant central canal stenosis. Cervical spinal cord cannot be assessed with this imaging modality, MRI recommended, if
warranted. No findings to suggest recent cervical spine fracture.
MRI C-spine: Multilevel degenerative changes of the cervical spine as detailed, worst at C4-5 where disc osteophyte complex/uncovering and uncovertebral/facet disease contribute to moderate to severe spinal canal and neural foraminal stenosis at
this level. No cord edema.
CT A/P 11/03/23
Small predominantly low-attenuation posterior right renal 'lesion' suspicious for abscess without significant change in size or appearance in comparison to recent prior study.
Few small bubbles of air within the urinary bladder, overall decreased in volume in comparison to recent prior study. Findings could represent cystitis.
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
Small anterior pericardial effusion versus pericardial thickening.
Echo: EF 55-60%. TAVR. Leaflets appear normal. No aortic regurgitation. Mild MR/TR.
Sepsis due to possible Right kidney abscess/Pyelonephritis:
-Leukocytosis has resolved
-imaging above
-per IR, no adequate fluid to drain at this time
-All culture data negative as above
-Lyme/Anaplasma/Ehrlichia serology and Babesia smear negative
-last fever 11/02/23 afternoon
-was on Cefepime, now on Invanz
-LEVON above, no vegetation
-s/p R perinephric drain placement 11/05/23. Developed rigors/fever after, likely related to the procedure. Follow fluid Cx.
Expressive aphasia, much resolved
-admitted with persistent word-finding difficulty - symptoms distinct from prior episode (garbled speech, confusion).
-continue ASA/Plavix
-MRI brain without acute CVA
-pt's MS is back to her baseline from recent stroke
Transaminitis:
-likely related to current infection
-CT A/P from admission noted liver with normal limit
-LFT trending down
-holding statin/Zetia for now
Acute hypoxemic respiratory insufficiency:
-now resolved
-Likely related to sepsis in the setting of likely undiagnosed VESNA/OHS
-CXR: No active cardiopulmonary disease.
-Weaned back to RA
Other problems:
Essential Hypertension: cont Norvasc/Hydralazine/BB/aldactone/ARB (with holding parameters)
DM2: SSI/accuchecks
Hypokalemia, resolved
Hypomagnesemia: 4g IV Mg
Hypothyroidism: cont Levoxyl.
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
Aortic Stenosis s/p TAVR (01/2023)
Obesity due to excess calories
RN updated.
and daughter updated at bedside.
FULL/SCDs
Anticipated Discharge: 24 - 48 hours
Subjective/Interval History
-
Date of Service: November 06, 2023
Reports some pain at catheter site.
Objective Data
-
Labs:
Laboratory Results
11/06/23
06:14
WBC 13.7 H
Hgb 11.5 L
Hct 33.7 L
Plt Count 289
Sodium 134 L
Potassium 3.7
Chloride 100
Carbon Dioxide 25
BUN 11
Creatinine 0.4 L
Glucose 126 H
Calcium 8.8
Vital Signs:
Vital Signs
Temp Pulse Resp BP Pulse Ox
98.6 F 74 18 148/65 91
11/06/23 07:55 11/06/23 07:55 11/06/23 07:55 11/06/23 07:55 11/06/23 07:55
I&O
11/05/23 11/06/23 11/07/23
06:59 06:59 06:59
Intake Total 600 / 600 490 / 490
Output Total
Balance 600 / 600 470 / 470
[2023-11-06] MEDS: TYLENOL 650 MG PO ×2 (10:00→18:09)
[2023-11-06] MEDS: APRESOLINE 50 MG PO ×3 (10:01→21:21)
[2023-11-06] MEDS: ASPIR LOW (ENTERIC COATED) 81 MG PO (10:01)
[2023-11-06] MEDS: PROTONIX 40 MG PO (10:01)
[2023-11-06] MEDS: NORVASC 5 MG PO (10:01)
[2023-11-06] MEDS: PLAVIX 75 MG PO (10:01)
[2023-11-06] MEDS: DIOVAN 320 MG PO (10:01)
[2023-11-06] MEDS: ALDACTONE 25 MG PO (10:02)
[2023-11-06] MEDS: INVANZ 60 MG IV (10:07)
[2023-11-06 10:26] LABS: ALT (SGPT) 67 U/L (0-35); AST (SGOT) 33 U/L (14-36); Albumin 3.1 g/dl (3.5-5.0); Alkaline Phosphatase 168 U/L (38-126); Direct Bilirubin 0.2 mg/dl (0.0-0.4); Total Bilirubin 0.8 mg/dl (0.2-1.3); Total Protein 5.7 g/dl (6.3-8.2)
[2023-11-06] MEDS: MAGNESIUM SULFATE 100 IV (11:28)
[2023-11-06 11:41] LABS: Glucose - Point of Care 182 mg/dl (70-99)
--- NOTE | 2023-11-06 12:08 | W.PN.ID1 ---
Date of Service
Date of Service: November 06, 2023
Today's Communication
Continue antibiotics.
Assessment / Plan
# Fevers
# Leukocytosis - improving
# Right renal collection seen on CT
- s/p drainage
- cultures with GNR's
# Presence of TAVR
- 10/28 Blood cx's x2 negative
- UA negative x 2
- Ucx (prior to cx) 30k rosa m
- CXR x2 no opacity
- Babesia smear negative. Lyme screen negative.
- Anaplasma/Ehrlichia serologies negative
-TTE: no gross vegetation; LEVON no vegetation
- Follow repeat bcx's x2 - no growth to date
- Continue empiric ertapenem (d#6)
- Follow temps/wbc
- Await further culture data to guide antimicrobial selection and possible de-escalation.
# Conditions prior to admission
DM
HTN
CVA
TAVR (01/2023)
Hypothyroidism
Interstitial cystitis
Urinary incontinence
VESNA on CPAP
hx left frontal meningioma resection
Chief Complaint
-: Fever
Vital Signs / Physical Exam
Vital Signs
Vital Signs
Temp Pulse Resp BP Pulse Ox
100.0 F 80 16 124/64 92
11/06/23 11:11 11/06/23 11:11 11/06/23 11:11 11/06/23 11:11 11/06/23 11:11
Physical Exam
Constitutional: No Acute Distress, Comfortable and Non-toxic
Eyes: No Conjunctival Hemorrhage and Sclera Anicteric
Cardiovascular: S1/S2; Negative S3/S4
Pulmonary: Symmetric and Non Labored
Gastrointestinal: Non Distended and Other (Right-sided drain in place with bloody drainage.)
Skin: Warm and Dry; Negative Rash or Jaundice
Neurological: Awake and Alert
Psychological: Calm
Objective Data
Lab Data
Lab Results
11/06/23 06:14
11/06/23 06:14
PT 13.0 Sec (11.4-14.6) 10/27/23 21:12
INR 0.98 10/27/23 21:12
APTT 27.5 Sec (23.4-35.0) 10/27/23 21:12
Estimated Creat Clear 82 ml/min 11/06/23 06:14
Total Bilirubin 0.8 mg/dl (0.2-1.3) 11/06/23 06:14
AST 33 U/L (14-36) 11/06/23 06:14
ALT 67 U/L (0-35) H 11/06/23 06:14
Alkaline Phosphatase 168 U/L (38-126) H 11/06/23 06:14
Most recent labs reviewed.
Micro Results:
11/05/23 09:55 Body Fluid Culture - Preliminary
Fluid Gram negative bacilli
Gram Stain - Preliminary
11/02/23 14:33 Blood Culture - Preliminary
Blood/Venous No Growth in 72 hours- Final report to follow
11/02/23 14:12 Blood Culture - Preliminary
Blood/Venous No Growth in 72 hours- Final report to follow
10/28/23 09:13 Blood Culture - Final
Blood/Venous No Growth - Final Report
10/28/23 03:32 Blood Culture - Final
Blood/Venous No Growth - Final Report
10/30/23 00:15 Urine Culture - Final
Urine
10/29/23 13:39 Blood Parasites Smear - Final
Blood/Venous
10/28/23 03:47 Influenza Types A & B ([facility]) - Final
Nasal Swab Negative for Influenza A & B, NAAT
Negative results must be combined with clinical observations
and patient history.
Nucleic Acid Amplification test (NAAT)performed on the
[employer] platform.
10/29/23 CT a/p with po and IV contrast: Suspect focal areas of bilateral pyelonephritis with intrarenal abscess formation within the upper pole right kidney measuring up to 2.9 cm. Intravesical gas suggesting cystitis.
10/28/23 MRI brain:
1. No MRI evidence for acute infarct.
2. Small chronic ischemic infarcts in the right cerebellar hemisphere.
3. 6.7 mm chronic ischemic periventricular white matter infarct in the right frontal lobe.
4. Mild white matter leukoaraiosis in the frontal and parietal lobes.
5. Previous left frontotemporal craniotomy and meningioma resection with mild encephalomalacia in the left frontal lobe.
6. Mild diffuse cerebral and cerebellar volume loss.
7. 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
8. Severe multilevel left-sided facet joint arthrosis.
9. Mild paranasal sinus mucosal disease.
10/28/23 CXR 1 view: No focal parenchymal opacification to suggest pneumonia.
[2023-11-06] MEDS: NOVOLOG FLEXPEN-LOW RESISTANCE 1 UNITS SC (12:20)
[2023-11-06 16:47] LABS: Glucose - Point of Care 115 mg/dl (70-99)
[2023-11-06] MEDS: CELEXA 40 MG PO (18:10)
[2023-11-06] MEDS: TOPROL XL 200 MG PO (18:10)
[2023-11-06 22:14] LABS: Glucose - Point of Care 117 mg/dl (70-99)
[2023-11-07] MEDS: SYNTHROID 50 MCG PO (05:41)
[2023-11-07 06:00] VITALS: BMI 31.1
[2023-11-07 07:00] VITALS: BP 154/67
[2023-11-07] MEDS: DIOVAN 320 MG PO (07:50)
[2023-11-07] MEDS: ASPIR LOW (ENTERIC COATED) 81 MG PO (07:51)
[2023-11-07] MEDS: ALDACTONE 25 MG PO (07:51)
[2023-11-07] MEDS: APRESOLINE 50 MG PO ×3 (07:51→20:55)
[2023-11-07] MEDS: PLAVIX 75 MG PO (07:51)
[2023-11-07] MEDS: PROTONIX 40 MG PO (07:51)
[2023-11-07] MEDS: NORVASC 5 MG PO (07:51)
[2023-11-07 08:00] LABS: Hematocrit 34.8 % (37.0-47.0); Mean Corp Hgb Conc. 34.5 g/dL (33.0-37.0); Mean Corpuscular Hgb 29.6 pg (27.0-31.0); Mean Corpuscular Volume 85.9 fL (81.0-99.0); Mean Platelet Volume 9.1 fL (7.4-10.4); Platelet Count 330 10^3/uL (130-400); Red Blood Cell Count 4.05 10^6/uL (4.20-5.40); Red Cell Dist. Width 14.3 % (11.5-14.5); White Blood Cell Count 12.6 10^3/uL (4.8-10.8)
[2023-11-07] MEDS: NOVOLOG FLEXPEN-LOW RESISTANCE SC ×3 (08:02→17:31)
[2023-11-07 08:10] LABS: Glucose - Point of Care 131 mg/dl (70-99)
[2023-11-07 08:24] LABS: Blood Urea Nitrogen 7 mg/dl (7-17); Calcium 8.7 mg/dl (8.4-10.2); Carbon Dioxide 26 mmol/L (22-30); Chloride 101 mmol/L (98-107); Estimated Creatinine Clearance 81 ml/min; Glucose 121 mg/dl (70-99); Potassium 3.9 mmol/L (3.5-5.1); Sodium 135 mmol/L (135-145); eGFR > 60.00
[2023-11-07] MEDS: INVANZ 60 MG IV (09:29)
--- NOTE | 2023-11-07 10:52 | CM ---
Per therjohny notes, patient progressing well. Needs to use Rolling Walker for stability. Plan remains for home. Will watch for VN needs.
Plan: Case management will continue to follow and assist with discharge planning. Home when stable.
--- NOTE | 2023-11-07 11:24 | W.PN.ID1 ---
Date of Service
Date of Service: November 07, 2023
Today's Communication
Narrow to cefazolin
Assessment / Plan
# Fevers
- ongoing
# Leukocytosis
# Right renal collection seen on CT
- s/p drainage
- cultures with GNR's
# Presence of TAVR
- 10/28 Blood cx's x2 negative
- UA negative x 2
- Ucx (prior to cx) 30k rosa m
- CXR x2 no opacity
- Babesia smear negative. Lyme screen negative.
- Anaplasma/Ehrlichia serologies negative
-TTE: no gross vegetation; LEVON no vegetation
- Follow repeat bcx's x2 - no growth to date
- Narrow to cefazolin 2 gm IV 8
- Follow temps/wbc
# Conditions prior to admission
DM
HTN
CVA
TAVR (01/2023)
Hypothyroidism
Interstitial cystitis
Urinary incontinence
VESNA on CPAP
hx left frontal meningioma resection
����������������������������������������������������������
Chief Complaint
-: Fever
Subjective / Review of Systems
Patient seen and examined. Still with intermittent fevers. No abdominal pain.
Review of Systems: No Fever and No Chills
Vital Signs / Physical Exam
Vital Signs
Vital Signs
Temp Pulse Resp BP Pulse Ox
100.4 F H 74 20 154/67 94
11/07/23 07:00 11/07/23 07:00 11/07/23 07:00 11/07/23 07:51 11/07/23 07:00
Physical Exam
Constitutional: No Acute Distress, Comfortable and Non-toxic
Eyes: No Conjunctival Hemorrhage and Sclera Anicteric
Cardiovascular: S1/S2; Negative S3/S4
Pulmonary: Symmetric and Non Labored
Gastrointestinal: Non Distended and Other (Right-sided drain in place with bloody drainage.)
Skin: Warm and Dry; Negative Rash or Jaundice
Neurological: Awake and Alert
Psychological: Calm
Objective Data
Lab Data
Lab Results
11/07/23 07:13
11/07/23 07:13
PT 13.0 Sec (11.4-14.6) 10/27/23 21:12
INR 0.98 10/27/23 21:12
APTT 27.5 Sec (23.4-35.0) 10/27/23 21:12
Estimated Creat Clear 81 ml/min 11/07/23 07:13
Total Bilirubin 0.8 mg/dl (0.2-1.3) 11/06/23 06:14
AST 33 U/L (14-36) 11/06/23 06:14
ALT 67 U/L (0-35) H 11/06/23 06:14
Alkaline Phosphatase 168 U/L (38-126) H 11/06/23 06:14
Most recent labs reviewed.
Micro Results:
11/05/23 09:55 Body Fluid Culture - Final
Fluid Escherichia coli
Gram Stain - Final
11/02/23 14:33 Blood Culture - Preliminary
Blood/Venous No Growth in 4 days- Final report to follow
11/02/23 14:12 Blood Culture - Preliminary
Blood/Venous No Growth in 4 days- Final report to follow
10/28/23 09:13 Blood Culture - Final
Blood/Venous No Growth - Final Report
10/28/23 03:32 Blood Culture - Final
Blood/Venous No Growth - Final Report
10/30/23 00:15 Urine Culture - Final
Urine
10/29/23 13:39 Blood Parasites Smear - Final
Blood/Venous
10/28/23 03:47 Influenza Types A & B ([facility]) - Final
Nasal Swab Negative for Influenza A & B, NAAT
Negative results must be combined with clinical observations
and patient history.
Nucleic Acid Amplification test (NAAT)performed on the
[email or web address] platform.
10/29/23 CT a/p with po and IV contrast: Suspect focal areas of bilateral pyelonephritis with intrarenal abscess formation within the upper pole right kidney measuring up to 2.9 cm. Intravesical gas suggesting cystitis.
10/28/23 MRI brain:
1. No MRI evidence for acute infarct.
2. Small chronic ischemic infarcts in the right cerebellar hemisphere.
3. 6.7 mm chronic ischemic periventricular white matter infarct in the right frontal lobe.
4. Mild white matter leukoaraiosis in the frontal and parietal lobes.
5. Previous left frontotemporal craniotomy and meningioma resection with mild encephalomalacia in the left frontal lobe.
6. Mild diffuse cerebral and cerebellar volume loss.
7. 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
8. Severe multilevel left-sided facet joint arthrosis.
9. Mild paranasal sinus mucosal disease.
10/28/23 CXR 1 view: No focal parenchymal opacification to suggest pneumonia.
Care Review
Plan reviewed with: Physician (Hospitalist)
[2023-11-07 12:02] LABS: Glucose - Point of Care 107 mg/dl (70-99)
--- NOTE | 2023-11-07 13:11 | W.PN.HOSP.TC ---
Today's Communication/Plan
-
see note
potential discharge in 24-48 hrs
Assessment / Plan
Assessment / Plan
MRI brain:
1. No MRI evidence for acute infarct.
2. Small chronic ischemic infarcts in the right cerebellar hemisphere.
3. 6.7 mm chronic ischemic periventricular white matter infarct in the right frontal lobe.
4. Mild white matter leukoaraiosis in the frontal and parietal lobes.
5. Previous left frontotemporal craniotomy and meningioma resection with mild encephalomalacia in the left frontal lobe.
6. Mild diffuse cerebral and cerebellar volume loss.
7. 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
8. Severe multilevel left-sided facet joint arthrosis.
9. Mild paranasal sinus mucosal disease.
CXR: No focal parenchymal opacification to suggest pneumonia.
CT A/P:
1. Suspect focal areas of bilateral pyelonephritis with intrarenal abscess formation within the upper pole right kidney measuring up to 2.9 cm.
2. Intravesical gas suggesting cystitis.
3. Mild to moderate diffuse colonic stool burden may reflect constipation.
CT C-spine: Degenerative changes throughout the cervical spine, most prominent hypertrophic, especially C4-C7 with some resultant central canal stenosis. Cervical spinal cord cannot be assessed with this imaging modality, MRI recommended, if
warranted. No findings to suggest recent cervical spine fracture.
MRI C-spine: Multilevel degenerative changes of the cervical spine as detailed, worst at C4-5 where disc osteophyte complex/uncovering and uncovertebral/facet disease contribute to moderate to severe spinal canal and neural foraminal stenosis at
this level. No cord edema.
CT A/P 11/03/23
Small predominantly low-attenuation posterior right renal 'lesion' suspicious for abscess without significant change in size or appearance in comparison to recent prior study.
Few small bubbles of air within the urinary bladder, overall decreased in volume in comparison to recent prior study. Findings could represent cystitis.
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
Small anterior pericardial effusion versus pericardial thickening.
Echo: EF 55-60%. TAVR. Leaflets appear normal. No aortic regurgitation. Mild MR/TR.

Sepsis due to possible Right kidney abscess/Pyelonephritis:
-Leukocytosis has resolved
-imaging as above
-All culture data except drain culture negative as above
-Lyme/Anaplasma/Ehrlichia serology and Babesia smear negative
-LEVON above, no vegetation
-s/p R perinephric drain placement 11/05/23. growing pansens Ecoli
-Discussed with ID and currently on IV ancef
-check KATHY/vasculitis panel, clinically less likely.
Expressive aphasia, much resolved
-admitted with persistent word-finding difficulty - symptoms distinct from prior episode (garbled speech, confusion).
-continue ASA/Plavix
-MRI brain without acute CVA
-pt's MS is back to her baseline from recent stroke
Transaminitis:
-likely related to current infection
-CT A/P from admission noted liver with normal limit
-LFT trending down
-holding statin/Zetia for now
Acute hypoxemic respiratory insufficiency:
-now resolved
-Likely related to sepsis in the setting of likely undiagnosed VESNA/OHS
-CXR: No active cardiopulmonary disease.
-Weaned back to RA
Other problems:
Essential Hypertension: cont Norvasc/Hydralazine/BB/Aldactone/ARB (with holding parameters)
DM2: SSI/AccuCheck
Hypokalemia, resolved
Hypomagnesemia: replace prn
Hypothyroidism: cont Levoxyl.
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
Aortic Stenosis s/p TAVR (01/2023)
Obesity due to excess calories
FULL/SCDs
Discussed with ID
Anticipated Discharge: Within 24 hours
Subjective/Interval History
-
Date of Service: November 07, 2023
continues to have mild fever
no tachycardia/shortness breath
Objective Data
-
Labs:
Laboratory Results
11/07/23
07:13
WBC 12.6 H
Hgb 12.0
Hct 34.8 L
Plt Count 330
Sodium 135
Potassium 3.9
Chloride 101
Carbon Dioxide 26
BUN 7
Creatinine 0.4 L
Glucose 121 H
Calcium 8.7
Vital Signs:
Vital Signs
Temp Pulse Resp BP Pulse Ox
100.4 F H 74 20 154/67 94
11/07/23 07:00 11/07/23 07:00 11/07/23 07:00 11/07/23 07:51 11/07/23 07:00
I&O
11/06/23 11/07/23 11/08/23
06:59 06:59 06:59
Intake Total 490 / 490 240 / 240
Output Total
Balance 470 / 470 230 / 230
Review of Systems
-
Respiratory: Reports No Symptoms
Cardiac: Reports No Symptoms
Abdomen/GI: Reports No Symptoms
Physical Exam
-
General: Obese
HEENT: Negative Oxygen
Neuro: Awake, Alert, Oriented and No Motor Deficits
[2023-11-07 15:00] VITALS: BP 117/64
[2023-11-07] MEDS: TYLENOL 650 MG PO (15:25)
[2023-11-07 16:53] LABS: Glucose - Point of Care 138 mg/dl (70-99)
[2023-11-07] MEDS: TOPROL XL 200 MG PO (17:30)
[2023-11-07] MEDS: CELEXA 40 MG PO (17:30)
[2023-11-07] MEDS: ANCEF 10 IV (17:31)
[2023-11-07 21:36] LABS: Glucose - Point of Care 169 mg/dl (70-99)
[2023-11-07 23:15] VITALS: BP 140/66
[2023-11-08] MEDS: ANCEF 10 IV ×2 (01:49→08:57)
[2023-11-08] MEDS: FLUSH (NSS) 4 FLUSH IV (01:50)
[2023-11-08 03:05] VITALS: BMI 31.0
[2023-11-08] MEDS: SYNTHROID 50 MCG PO (05:37)
--- NOTE | 2023-11-08 06:02 | PTCARENOTE ---
15 ml sanguineous drainage this shift- voiding in br without difficulty- ambulates well- afebrile this shift- bp wnl
[2023-11-08 07:20] LABS: Glucose - Point of Care 102 mg/dl (70-99)
[2023-11-08] MEDS: NOVOLOG FLEXPEN-LOW RESISTANCE SC ×3 (07:29→16:33)
[2023-11-08 07:31] VITALS: BP 139/69
[2023-11-08] MEDS: ASPIR LOW (ENTERIC COATED) 81 MG PO (08:08)
[2023-11-08] MEDS: ALDACTONE 25 MG PO (08:08)
[2023-11-08] MEDS: DIOVAN 320 MG PO (08:08)
[2023-11-08] MEDS: NORVASC 5 MG PO (08:09)
[2023-11-08] MEDS: PROTONIX 40 MG PO (08:09)
[2023-11-08] MEDS: PLAVIX 75 MG PO (08:10)
[2023-11-08] MEDS: APRESOLINE 50 MG PO ×3 (08:10→22:32)
[2023-11-08] MEDS: MIRALAX 17 GRAMS PO (08:57)
[2023-11-08 11:22] LABS: Glucose - Point of Care 131 mg/dl (70-99)
[2023-11-08] MEDS: TYLENOL 650 MG PO ×2 (12:02→20:26)
[2023-11-08 12:25] VITALS: BP 146/67; PULSE 71
--- NOTE | 2023-11-08 12:28 | W.PN.ID1 ---
Date of Service
Date of Service: November 08, 2023
Today's Communication
being setting up OPAT for ertapenem
Assessment / Plan
# Right renal abscess - suspect polymicrobial, E coli grown
# Fevers - ongoing
# Leukocytosis
# Presence of TAVR
- relapse of fevers and leukocytosis since narrowing therapy
- 11/06 Body fluid culture: moderate E coli from the perinephric abscess
- patient had ertapenem 10/31-11/06 and cefepime prior to this culture - there may be additional isoaltes which did not grow due to prior antibiotics
- 11/01 blood cultures finalized negative
- given relapse of fevers and leukocytosis, possible polymicrobial infection resume ertapenem, stopped cefazolin
- plan 2-3 more weeks of IV ertapenem, will begin setting up for home IV therapy - script provided to rifle case repairer
- midline
- follow up of MPO, KATHY, PR3 abx per IM service
- Follow temps/wbc overnight
- follow up in clinic in about 2 weeks
# Conditions prior to admission
DM
HTN
CVA
TAVR (01/2023)
Hypothyroidism
Interstitial cystitis
Urinary incontinence
VESNA on CPAP
hx left frontal meningioma resection
����������������������������������������������������������
Chief Complaint
-: Fever and Other (renal abscess)
Subjective / Review of Systems
relapse of fevers since narrowing therapy
relapse of leukocytosis since narrowing therapy
hgb improved to 12 today
plt 330
cr 0.4
KATHY, PRC, MPO abx sent yesterday
Vital Signs / Physical Exam
Vital Signs
Vital Signs
Temp Pulse Resp BP Pulse Ox
98.7 F 69 16 139/69 92
11/08/23 07:31 11/08/23 07:31 11/08/23 07:31 11/08/23 07:31 11/08/23 07:31
Physical Exam
Constitutional: No Acute Distress
Cardiovascular: Regular Rate and S1/S2; Negative Murmur or Rub
Pulmonary: Clear and Symmetric; Negative Wheezes or Rales
Gastrointestinal: Soft, Non Tender, Non Distended and Normal Bowel Sounds
Skin: Warm and Dry; Negative Rash or Jaundice
Objective Data
Lab Data
Lab Results
11/07/23 07:13
11/07/23 07:13
PT 13.0 Sec (11.4-14.6) 10/27/23 21:12
INR 0.98 10/27/23 21:12
APTT 27.5 Sec (23.4-35.0) 10/27/23 21:12
Estimated Creat Clear 81 ml/min 11/07/23 07:13
Total Bilirubin 0.8 mg/dl (0.2-1.3) 11/06/23 06:14
AST 33 U/L (14-36) 11/06/23 06:14
ALT 67 U/L (0-35) H 11/06/23 06:14
Alkaline Phosphatase 168 U/L (38-126) H 11/06/23 06:14
Most recent labs reviewed.
Micro Results:
11/02/23 14:33 Blood Culture - Final
Blood/Venous No Growth - Final Report
11/02/23 14:12 Blood Culture - Final
Blood/Venous No Growth - Final Report
11/05/23 09:55 Body Fluid Culture - Final
Fluid Escherichia coli
Gram Stain - Final
10/28/23 09:13 Blood Culture - Final
Blood/Venous No Growth - Final Report
10/28/23 03:32 Blood Culture - Final
Blood/Venous No Growth - Final Report
10/30/23 00:15 Urine Culture - Final
Urine
10/29/23 13:39 Blood Parasites Smear - Final
Blood/Venous
10/28/23 03:47 Influenza Types A & B ([facility]) - Final
Nasal Swab Negative for Influenza A & B, NAAT
Negative results must be combined with clinical observations
and patient history.
Nucleic Acid Amplification test (NAAT)performed on the
[employer] platform.
10/29/23 CT a/p with po and IV contrast: Suspect focal areas of bilateral pyelonephritis with intrarenal abscess formation within the upper pole right kidney measuring up to 2.9 cm. Intravesical gas suggesting cystitis.
10/28/23 MRI brain:
1. No MRI evidence for acute infarct.
2. Small chronic ischemic infarcts in the right cerebellar hemisphere.
3. 6.7 mm chronic ischemic periventricular white matter infarct in the right frontal lobe.
4. Mild white matter leukoaraiosis in the frontal and parietal lobes.
5. Previous left frontotemporal craniotomy and meningioma resection with mild encephalomalacia in the left frontal lobe.
6. Mild diffuse cerebral and cerebellar volume loss.
7. 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
8. Severe multilevel left-sided facet joint arthrosis.
9. Mild paranasal sinus mucosal disease.
10/28/23 CXR 1 view: No focal parenchymal opacification to suggest pneumonia.
Care Review
Plan reviewed with: Physician (Dr Marguerite campuzano, abx)
--- NOTE | 2023-11-08 13:41 | CM ---
Addendum entered by SHAYNE Lowe 11/09/23 13:27:
Received return call from Karla who stated that she will be able to accommodate patient. Faxed referral to [phone]. She stated that she called Aleyda from [facility].
Received call from Aleyda at [facility] who stated that she can see patient tomorrow.
Original Note:
Received Script from [facility], patient will need 1gm IV24 hrs of Ertrapenam until 11/25/23. Placed a call to Karla at [facility] to determine if she has availability for patient. Had to leave a voice mail message. Will await return call.
Plan: Case management will continue to follow and assist with discharge planning. Home with IV ABX.
[2023-11-08] MEDS: INVANZ 60 MG IV (13:45)
--- NOTE | 2023-11-08 14:30 | W.PN.HOSP.TC ---
Today's Communication/Plan
-
midline placement
home infusion arrangement
Assessment / Plan
Assessment / Plan
MRI brain:
1. No MRI evidence for acute infarct.
2. Small chronic ischemic infarcts in the right cerebellar hemisphere.
3. 6.7 mm chronic ischemic periventricular white matter infarct in the right frontal lobe.
4. Mild white matter leukoaraiosis in the frontal and parietal lobes.
5. Previous left frontotemporal craniotomy and meningioma resection with mild encephalomalacia in the left frontal lobe.
6. Mild diffuse cerebral and cerebellar volume loss.
7. 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
8. Severe multilevel left-sided facet joint arthrosis.
9. Mild paranasal sinus mucosal disease.
CXR: No focal parenchymal opacification to suggest pneumonia.
CT A/P:
1. Suspect focal areas of bilateral pyelonephritis with intrarenal abscess formation within the upper pole right kidney measuring up to 2.9 cm.
2. Intravesical gas suggesting cystitis.
3. Mild to moderate diffuse colonic stool burden may reflect constipation.
CT C-spine: Degenerative changes throughout the cervical spine, most prominent hypertrophic, especially C4-C7 with some resultant central canal stenosis. Cervical spinal cord cannot be assessed with this imaging modality, MRI recommended, if
warranted. No findings to suggest recent cervical spine fracture.
MRI C-spine: Multilevel degenerative changes of the cervical spine as detailed, worst at C4-5 where disc osteophyte complex/uncovering and uncovertebral/facet disease contribute to moderate to severe spinal canal and neural foraminal stenosis at
this level. No cord edema.
CT A/P 11/03/23
Small predominantly low-attenuation posterior right renal 'lesion' suspicious for abscess without significant change in size or appearance in comparison to recent prior study.
Few small bubbles of air within the urinary bladder, overall decreased in volume in comparison to recent prior study. Findings could represent cystitis.
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
Small anterior pericardial effusion versus pericardial thickening.
Echo: EF 55-60%. TAVR. Leaflets appear normal. No aortic regurgitation. Mild MR/TR.

Sepsis due to possible Right kidney abscess/Pyelonephritis:
-Leukocytosis has resolved
-imaging as above
-All culture data except drain culture negative as above
-Lyme/Anaplasma/Ehrlichia serology and Babesia smear negative
-LEVON above, no vegetation
-s/p R perinephric drain placement 11/05/23. growing pansensitive E-coli
-pending KATHY/vasculitis panel, clinically less likely.
-Patient antibiotics were adjusted to IV Invanz at this point.
Expressive aphasia, much resolved
-admitted with persistent word-finding difficulty - symptoms distinct from prior episode (garbled speech, confusion).
-continue ASA/Plavix
-MRI brain without acute CVA
-pt's MS is back to her baseline from recent stroke
Transaminitis:
-likely related to current infection
-CT A/P from admission noted liver with normal limit
-LFT trending down
-holding statin/Zetia for now
Acute hypoxemic respiratory insufficiency:
-now resolved
-Likely related to sepsis in the setting of likely undiagnosed VESNA/OHS
-CXR: No active cardiopulmonary disease.
-Weaned back to RA
Other problems:
Essential Hypertension: cont Norvasc/Hydralazine/BB/Aldactone/ARB (with holding parameters)
DM2: SSI/AccuCheck
Hypokalemia, resolved
Hypomagnesemia: replace prn
Hypothyroidism: cont Levoxyl.
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
Aortic Stenosis s/p TAVR (01/2023)
Obesity due to excess calories
Full code/SCDs
Anticipated Discharge: Within 24 hours
Subjective/Interval History
-
Date of Service: November 08, 2023
continues to have fever episode
denies abd pain/nausea/vomiting
Objective Data
-
Vital Signs:
Vital Signs
Temp Pulse Resp BP Pulse Ox
98.7 F 69 16 139/69 92
11/08/23 07:31 11/08/23 07:31 11/08/23 07:31 11/08/23 07:31 11/08/23 07:31
I&O
11/07/23 11/08/23 11/09/23
06:59 06:59 06:59
Intake Total 240 / 240 1460 / 1460
Output Total
Balance 230 / 230 1445 / 1445
Review of Systems
-
Respiratory: Reports No Symptoms
Cardiac: Reports No Symptoms
Abdomen/GI: Reports No Symptoms
Physical Exam
-
General: Obese
HEENT: Negative Oxygen
GI: Soft, Nontender and Nondistended
Neuro: Awake, Alert, Oriented and No Motor Deficits
[2023-11-08 15:07] VITALS: BP 136/66
[2023-11-08 16:29] VITALS: BP 133/70; PULSE 66; O2SAT 95
[2023-11-08 16:29] LABS: Glucose - Point of Care 144 mg/dl (70-99)
[2023-11-08] MEDS: TOPROL XL 200 MG PO (16:36)
[2023-11-08] MEDS: CELEXA 40 MG PO (16:36)
[2023-11-08 23:14] VITALS: BP 147/73
[2023-11-09 01:32] LABS: ANA, IgG Reflex to HEp-2 None Detected (None Detected)
[2023-11-09] MEDS: TYLENOL 650 MG PO ×3 (02:47→18:33)
[2023-11-09] MEDS: SYNTHROID 50 MCG PO (05:47)
[2023-11-09 06:00] VITALS: BMI 30.8
[2023-11-09 07:00] VITALS: BP 151/81
[2023-11-09 09:00] LABS: Glucose - Point of Care 163 mg/dl (70-99)
[2023-11-09] MEDS: PROTONIX 40 MG PO (09:31)
[2023-11-09] MEDS: ALDACTONE 25 MG PO (09:31)
[2023-11-09] MEDS: NORVASC 5 MG PO (09:32)
[2023-11-09] MEDS: PLAVIX 75 MG PO (09:32)
[2023-11-09] MEDS: DIOVAN 320 MG PO (09:32)
[2023-11-09] MEDS: ASPIR LOW (ENTERIC COATED) 81 MG PO (09:32)
[2023-11-09] MEDS: APRESOLINE 50 MG PO ×3 (09:36→23:26)
[2023-11-09] MEDS: MIRALAX 17 GRAMS PO (09:37)
[2023-11-09] MEDS: NOVOLOG FLEXPEN-LOW RESISTANCE SC ×2 (09:37→16:55)
[2023-11-09 11:31] LABS: Glucose - Point of Care 200 mg/dl (70-99)
[2023-11-09] MEDS: NOVOLOG FLEXPEN-LOW RESISTANCE 2 UNITS SC (12:28)
--- NOTE | 2023-11-09 13:08 | W.PN.HOSP.TC ---
Today's Communication/Plan
-
d/c home with home infusion
Assessment / Plan
Assessment / Plan
MRI brain:
1. No MRI evidence for acute infarct.
2. Small chronic ischemic infarcts in the right cerebellar hemisphere.
3. 6.7 mm chronic ischemic periventricular white matter infarct in the right frontal lobe.
4. Mild white matter leukoaraiosis in the frontal and parietal lobes.
5. Previous left frontotemporal craniotomy and meningioma resection with mild encephalomalacia in the left frontal lobe.
6. Mild diffuse cerebral and cerebellar volume loss.
7. 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
8. Severe multilevel left-sided facet joint arthrosis.
9. Mild paranasal sinus mucosal disease.
CXR: No focal parenchymal opacification to suggest pneumonia.
CT A/P:
1. Suspect focal areas of bilateral pyelonephritis with intrarenal abscess formation within the upper pole right kidney measuring up to 2.9 cm.
2. Intravesical gas suggesting cystitis.
3. Mild to moderate diffuse colonic stool burden may reflect constipation.
CT C-spine: Degenerative changes throughout the cervical spine, most prominent hypertrophic, especially C4-C7 with some resultant central canal stenosis. Cervical spinal cord cannot be assessed with this imaging modality, MRI recommended, if
warranted. No findings to suggest recent cervical spine fracture.
MRI C-spine: Multilevel degenerative changes of the cervical spine as detailed, worst at C4-5 where disc osteophyte complex/uncovering and uncovertebral/facet disease contribute to moderate to severe spinal canal and neural foraminal stenosis at
this level. No cord edema.
CT A/P 11/03/23
Small predominantly low-attenuation posterior right renal 'lesion' suspicious for abscess without significant change in size or appearance in comparison to recent prior study.
Few small bubbles of air within the urinary bladder, overall decreased in volume in comparison to recent prior study. Findings could represent cystitis.
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
Small anterior pericardial effusion versus pericardial thickening.
Echo: EF 55-60%. TAVR. Leaflets appear normal. No aortic regurgitation. Mild MR/TR.

Sepsis due to possible Right kidney abscess/Pyelonephritis:
-Leukocytosis has resolved
-imaging as above
-All culture data except drain culture negative as above
-Lyme/Anaplasma/Ehrlichia/monoscreen/covid serology and Babesia smear negative
-LEVON above, no vegetation
-s/p R perinephric drain placement 11/05/23. growing pansensitive E-coli
-KATHY neg/vasculitis panel pending, clinically less likely.
-Patient antibiotics were adjusted to IV Invanz for 2-3 weeks, CM working on home infusion setup, Midline in place.
Expressive aphasia, much resolved
-admitted with persistent word-finding difficulty - symptoms distinct from prior episode (garbled speech, confusion).
-continue ASA/Plavix
-MRI brain without acute CVA
-pt's MS is back to her baseline from recent stroke
Transaminitis:
-likely related to current infection
-CT A/P from admission noted liver with normal limit
-LFT trending down
-holding statin/Zetia for now
Acute hypoxemic respiratory insufficiency:
-now resolved
-Likely related to sepsis in the setting of likely undiagnosed VESNA/OHS
-CXR: No active cardiopulmonary disease.
-Weaned back to RA
Other problems:
Essential Hypertension: cont Norvasc/Hydralazine/BB/Aldactone/ARB (with holding parameters)
DM2: SSI/AccuCheck
Hypokalemia, resolved
Hypomagnesemia: replace prn
Hypothyroidism: cont Levoxyl.
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
Aortic Stenosis s/p TAVR (01/2023)
Obesity due to excess calories
Full code/SCDs
Anticipated Discharge: Today
Subjective/Interval History
-
Date of Service: November 09, 2023
afebrile in night
no new issues
Objective Data
-
Vital Signs:
Vital Signs
Temp Pulse Resp BP Pulse Ox
98.1 F 65 17 151/81 95
11/09/23 07:00 11/09/23 09:36 11/09/23 07:00 11/09/23 09:36 11/09/23 07:00
I&O
11/08/23 11/09/23 11/10/23
06:59 06:59 06:59
Intake Total 1460 / 1460 1290 / 1290
Output Total 15 / 15
Balance 1445 / 1445 1280 / 1280
Review of Systems
-
Respiratory: Reports No Symptoms
Cardiac: Reports No Symptoms
Abdomen/GI: Reports No Symptoms
Physical Exam
-
General: Obese
HEENT: Negative Oxygen
GI: Soft, Nontender, Nondistended and Other (FRANCOIS drain in right side)
Neuro: Awake, Alert, Oriented and No Motor Deficits
[2023-11-09] MEDS: INVANZ 60 MG IV (14:22)
[2023-11-09 14:36] VITALS: BP 128/66
[2023-11-09 15:27] LABS: Myeloperoxidase Antibody 0 AU/mL (0-19); Serine Protease-3, IgG 0 AU/mL (0-19)
--- NOTE | 2023-11-09 16:31 | CM ---
Reviewed chart, spoke with Karla at [facility] who confirmed she can take patient today. Faxed referral three times, she stated that she did not receive it. CM healthcare administrative assistant scanned document. Called Karla to obtain email address however
had to leave a voice mail message. Received call back an hour later from Karla stating that home infusion will have to be set up tomorrow as they do not have enough time to get everything they need together. Emailed referral to

Referral sent to [facility] through [facility].
RN updated. Patient and spouse updated.
Plan: Case management will continue to follow and assist with discharge planning. Home with home infusion tomorrow.
[2023-11-09 16:37] LABS: Glucose - Point of Care 124 mg/dl (70-99)
[2023-11-09] MEDS: CELEXA 40 MG PO (17:05)
[2023-11-09] MEDS: TOPROL XL 200 MG PO (17:06)
[2023-11-09 21:41] LABS: Glucose - Point of Care 109 mg/dl (70-99)
[2023-11-09 23:17] VITALS: BP 146/78
[2023-11-10] MEDS: MONISTAT-3 (MICONAZOLE) 200 MG VAG ×2 (03:21→22:03)
[2023-11-10] MEDS: TYLENOL 650 MG PO ×3 (03:21→18:05)
--- NOTE | 2023-11-10 03:44 | PTCARENOTE ---
@8246; Instructed Dilan Paris,via TT, pt stated,'My vagina itches and it has white stuff coming out.I have an yeast infection'.White vaginal drainage noted.Cherie care care given .Monostat 3 / 200mg vaginal ordered and administered.
[2023-11-10] MEDS: SYNTHROID 50 MCG PO (05:50)
[2023-11-10 07:00] VITALS: BP 139/84
[2023-11-10 08:11] LABS: Glucose - Point of Care 140 mg/dl (70-99)
[2023-11-10] MEDS: NOVOLOG FLEXPEN-LOW RESISTANCE SC ×2 (08:25→12:09)
[2023-11-10] MEDS: DIOVAN 320 MG PO (08:26)
[2023-11-10] MEDS: NORVASC 5 MG PO (08:26)
[2023-11-10] MEDS: ASPIR LOW (ENTERIC COATED) 81 MG PO (08:26)
[2023-11-10] MEDS: PLAVIX 75 MG PO (08:27)
[2023-11-10] MEDS: PROTONIX 40 MG PO (08:27)
[2023-11-10] MEDS: ALDACTONE 25 MG PO (08:27)
[2023-11-10] MEDS: APRESOLINE 50 MG PO ×3 (08:27→22:03)
[2023-11-10] MEDS: MIRALAX PO (08:27)
--- NOTE | 2023-11-10 11:01 | W.PN.ID1 ---
Date of Service
Date of Service: November 10, 2023
Today's Communication
DC home after dose of Ertapenem.
Assessment / Plan
# Right renal abscess s/p drain placement (11/05/23). Cx + E coli, suspect polymicrobial
# Fevers - resolved
# Leukocytosis
# Presence of TAVR. 11/04/23 LEVON no vegetations
- 11/06 Body fluid culture: moderate E coli from the perinephric abscess
- patient had ertapenem 10/31-11/06 and cefepime prior to this culture - there may be additional isoaltes which did not grow due to prior antibiotics
- 11/01 blood cultures finalized negative
- plan 2-3 more weeks of IV ertapenem,
- midline in place
- MPO, KATHY, PR3 ab negative
- Follow temps/wbc overnight
- follow up in clinic in about 2 weeks
# Conditions prior to admission
DM
HTN
CVA
TAVR (01/2023)
Hypothyroidism
Interstitial cystitis
Urinary incontinence
VESNA on CPAP
hx left frontal meningioma resection
����������������������������������������������������������
Chief Complaint
-: Fever and Other (renal abscess)
Subjective / Review of Systems
Feeling better. Going home today on IV abx.
Vital Signs / Physical Exam
Vital Signs
Vital Signs
Temp Pulse Resp BP Pulse Ox
98.9 F 66 18 139/84 94
11/10/23 07:00 11/10/23 08:27 11/10/23 07:00 11/10/23 08:27 11/10/23 07:00
Physical Exam
Constitutional: No Acute Distress and Comfortable
Eyes: Sclera Anicteric
Cardiovascular: Regular Rate, S1/S2 and Murmur
Pulmonary: Clear
Gastrointestinal: Soft, Non Tender, Non Distended and Decreased Bowel Sounds
Genito-Urinary: Negative CVA Tenderness
Neurological: AO x 3
Lines: Other (RUE midline no erythema)
Objective Data
Lab Data
Lab Results
11/07/23 07:13
11/07/23 07:13
PT 13.0 Sec (11.4-14.6) 10/27/23 21:12
INR 0.98 10/27/23 21:12
APTT 27.5 Sec (23.4-35.0) 10/27/23 21:12
Estimated Creat Clear 81 ml/min 11/07/23 07:13
Total Bilirubin 0.8 mg/dl (0.2-1.3) 11/06/23 06:14
AST 33 U/L (14-36) 11/06/23 06:14
ALT 67 U/L (0-35) H 11/06/23 06:14
Alkaline Phosphatase 168 U/L (38-126) H 11/06/23 06:14
Most recent labs reviewed.
Micro Results:
11/02/23 14:33 Blood Culture - Final
Blood/Venous No Growth - Final Report
11/02/23 14:12 Blood Culture - Final
Blood/Venous No Growth - Final Report
11/05/23 09:55 Body Fluid Culture - Final
Fluid Escherichia coli
Gram Stain - Final
10/28/23 09:13 Blood Culture - Final
Blood/Venous No Growth - Final Report
10/28/23 03:32 Blood Culture - Final
Blood/Venous No Growth - Final Report
10/30/23 00:15 Urine Culture - Final
Urine
10/29/23 13:39 Blood Parasites Smear - Final
Blood/Venous
10/28/23 03:47 Influenza Types A & B ([facility]) - Final
Nasal Swab Negative for Influenza A & B, NAAT
Negative results must be combined with clinical observations
and patient history.
Nucleic Acid Amplification test (NAAT)performed on the
[employer] platform.
10/29/23 CT a/p with po and IV contrast: Suspect focal areas of bilateral pyelonephritis with intrarenal abscess formation within the upper pole right kidney measuring up to 2.9 cm. Intravesical gas suggesting cystitis.
10/28/23 MRI brain:
1. No MRI evidence for acute infarct.
2. Small chronic ischemic infarcts in the right cerebellar hemisphere.
3. 6.7 mm chronic ischemic periventricular white matter infarct in the right frontal lobe.
4. Mild white matter leukoaraiosis in the frontal and parietal lobes.
5. Previous left frontotemporal craniotomy and meningioma resection with mild encephalomalacia in the left frontal lobe.
6. Mild diffuse cerebral and cerebellar volume loss.
7. 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
8. Severe multilevel left-sided facet joint arthrosis.
9. Mild paranasal sinus mucosal disease.
10/28/23 CXR 1 view: No focal parenchymal opacification to suggest pneumonia.
Care Review
Plan reviewed with: Physician (Dr. Anderson)
[2023-11-10 12:05] LABS: Glucose - Point of Care 114 mg/dl (70-99)
[2023-11-10] MEDS: INVANZ 60 MG IV (14:35)
--- NOTE | 2023-11-10 14:46 | W.PN.HOSP.TC ---
Today's Communication/Plan
-
d/c home
Assessment / Plan
Assessment / Plan
MRI brain:
1. No MRI evidence for acute infarct.
2. Small chronic ischemic infarcts in the right cerebellar hemisphere.
3. 6.7 mm chronic ischemic periventricular white matter infarct in the right frontal lobe.
4. Mild white matter leukoaraiosis in the frontal and parietal lobes.
5. Previous left frontotemporal craniotomy and meningioma resection with mild encephalomalacia in the left frontal lobe.
6. Mild diffuse cerebral and cerebellar volume loss.
7. 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
8. Severe multilevel left-sided facet joint arthrosis.
9. Mild paranasal sinus mucosal disease.
CXR: No focal parenchymal opacification to suggest pneumonia.
CT A/P:
1. Suspect focal areas of bilateral pyelonephritis with intrarenal abscess formation within the upper pole right kidney measuring up to 2.9 cm.
2. Intravesical gas suggesting cystitis.
3. Mild to moderate diffuse colonic stool burden may reflect constipation.
CT C-spine: Degenerative changes throughout the cervical spine, most prominent hypertrophic, especially C4-C7 with some resultant central canal stenosis. Cervical spinal cord cannot be assessed with this imaging modality, MRI recommended, if
warranted. No findings to suggest recent cervical spine fracture.
MRI C-spine: Multilevel degenerative changes of the cervical spine as detailed, worst at C4-5 where disc osteophyte complex/uncovering and uncovertebral/facet disease contribute to moderate to severe spinal canal and neural foraminal stenosis at
this level. No cord edema.
CT A/P 11/03/23
Small predominantly low-attenuation posterior right renal 'lesion' suspicious for abscess without significant change in size or appearance in comparison to recent prior study.
Few small bubbles of air within the urinary bladder, overall decreased in volume in comparison to recent prior study. Findings could represent cystitis.
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
Small anterior pericardial effusion versus pericardial thickening.
Echo: EF 55-60%. TAVR. Leaflets appear normal. No aortic regurgitation. Mild MR/TR.

Sepsis due to possible Right kidney abscess/Pyelonephritis:
-Leukocytosis has resolved
-imaging as above
-All culture data except drain culture negative as above
-Lyme/Anaplasma/Ehrlichia/monoscreen/covid serology and Babesia smear negative
-LEVON above, no vegetation
-s/p R perinephric drain placement 11/05/23. growing pansensitive E-coli
-KATHY neg/vasculitis panel pending, clinically less likely.
-Patient antibiotics were adjusted to IV Invanz for 2-3 weeks, CM working on home infusion setup, Midline in place.
Expressive aphasia, much resolved
-admitted with persistent word-finding difficulty - symptoms distinct from prior episode (garbled speech, confusion).
-continue ASA/Plavix
-MRI brain without acute CVA
-pt's MS is back to her baseline from recent stroke
Transaminitis:
-likely related to current infection
-CT A/P from admission noted liver with normal limit
-LFT trended down.
-resumed statin/zetia at discharge.
Acute hypoxemic respiratory insufficiency:
-now resolved
-Likely related to sepsis in the setting of likely undiagnosed VESNA/OHS
-CXR: No active cardiopulmonary disease.
-Weaned back to RA
Other problems:
Essential Hypertension: cont Norvasc/Hydralazine/BB/Aldactone/ARB (with holding parameters)
DM2: SSI/AccuCheck
Hypokalemia, resolved
Hypomagnesemia: replace prn
Hypothyroidism: cont Levoxyl.
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
Aortic Stenosis s/p TAVR (01/2023)
Obesity due to excess calories
Full code/SCDs
More than 30 minutes spent in discharge including
Final examination of the patient
Summarizing hospital stay
Instructions for continuing care to all relevant caregivers
Preparation of discharge records, prescriptions, and referral forms
Total time spent (in minutes): 38 mins
Anticipated Discharge: Today
Subjective/Interval History
-
Date of Service: November 10, 2023
no new problems overnight
afebrile
Objective Data
-
Vital Signs:
Vital Signs
Temp Pulse Resp BP Pulse Ox
98.9 F 66 18 139/84 94
11/10/23 07:00 11/10/23 08:27 11/10/23 07:00 11/10/23 08:27 11/10/23 07:00
I&O
11/09/23 11/10/23 11/11/23
06:59 06:59 06:59
Intake Total 1290 / 1290 1210 / 1210
Output Total 550 / 550
Balance 1280 / 1280 1210 / 1210 -540 / -540
Review of Systems
-
Respiratory: Reports No Symptoms
Cardiac: Reports No Symptoms
Abdomen/GI: Reports No Symptoms
Physical Exam
-
General: Obese
HEENT: Negative Oxygen
GI: Soft, Nontender, Nondistended and Other (FRANCOIS drain in right side)
Neuro: Awake, Alert, Oriented and No Motor Deficits
[2023-11-10 15:00] VITALS: BP 144/74
[2023-11-10 16:09] LABS: Glucose - Point of Care 166 mg/dl (70-99)
[2023-11-10] MEDS: CELEXA 40 MG PO (17:41)
[2023-11-10] MEDS: TOPROL XL 200 MG PO (17:43)
[2023-11-10] MEDS: NOVOLOG FLEXPEN-LOW RESISTANCE 1 UNITS SC (17:43)
--- NOTE | 2023-11-10 18:12 | CM ---
met with patient and at bedside.faxed clinicals to [facility].call from mike at [facility] stating insurnace wants authorization for the ertapenem.mike from [facility] will have answer about med tomorrow morning.patient unhappy that she
will remain overnight.patient signed medicare letter.
[2023-11-10 21:31] LABS: Glucose - Point of Care 125 mg/dl (70-99)
[2023-11-10 23:18] VITALS: BP 136/67
[2023-11-11] MEDS: TYLENOL PO (03:07)
[2023-11-11 06:00] VITALS: BMI 31.0
[2023-11-11] MEDS: SYNTHROID 50 MCG PO (06:17)
[2023-11-11] MEDS: TYLENOL 650 MG PO ×2 (06:17→11:05)
[2023-11-11 07:20] LABS: Glucose - Point of Care 129 mg/dl (70-99)
[2023-11-11] MEDS: DIOVAN 320 MG PO (07:21)
[2023-11-11] MEDS: APRESOLINE 50 MG PO (07:21)
[2023-11-11] MEDS: NOVOLOG FLEXPEN-LOW RESISTANCE SC ×2 (07:21→11:45)
[2023-11-11] MEDS: PROTONIX 40 MG PO (07:22)
[2023-11-11] MEDS: MIRALAX PO (07:22)
[2023-11-11] MEDS: ASPIR LOW (ENTERIC COATED) 81 MG PO (07:22)
[2023-11-11] MEDS: PLAVIX 75 MG PO (07:22)
[2023-11-11] MEDS: ALDACTONE 25 MG PO (07:22)
[2023-11-11] MEDS: NORVASC 5 MG PO (07:22)
[2023-11-11 07:25] VITALS: BP 135/64
--- NOTE | 2023-11-11 08:38 | W.PN.HOSP.TC ---
Today's Communication/Plan
-
d/c home
Assessment / Plan
Assessment / Plan
MRI brain:
1. No MRI evidence for acute infarct.
2. Small chronic ischemic infarcts in the right cerebellar hemisphere.
3. 6.7 mm chronic ischemic periventricular white matter infarct in the right frontal lobe.
4. Mild white matter leukoaraiosis in the frontal and parietal lobes.
5. Previous left frontotemporal craniotomy and meningioma resection with mild encephalomalacia in the left frontal lobe.
6. Mild diffuse cerebral and cerebellar volume loss.
7. 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
8. Severe multilevel left-sided facet joint arthrosis.
9. Mild paranasal sinus mucosal disease.
CXR: No focal parenchymal opacification to suggest pneumonia.
CT A/P:
1. Suspect focal areas of bilateral pyelonephritis with intrarenal abscess formation within the upper pole right kidney measuring up to 2.9 cm.
2. Intravesical gas suggesting cystitis.
3. Mild to moderate diffuse colonic stool burden may reflect constipation.
CT C-spine: Degenerative changes throughout the cervical spine, most prominent hypertrophic, especially C4-C7 with some resultant central canal stenosis. Cervical spinal cord cannot be assessed with this imaging modality, MRI recommended, if
warranted. No findings to suggest recent cervical spine fracture.
MRI C-spine: Multilevel degenerative changes of the cervical spine as detailed, worst at C4-5 where disc osteophyte complex/uncovering and uncovertebral/facet disease contribute to moderate to severe spinal canal and neural foraminal stenosis at
this level. No cord edema.
CT A/P 11/03/23
Small predominantly low-attenuation posterior right renal 'lesion' suspicious for abscess without significant change in size or appearance in comparison to recent prior study.
Few small bubbles of air within the urinary bladder, overall decreased in volume in comparison to recent prior study. Findings could represent cystitis.
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
Small anterior pericardial effusion versus pericardial thickening.
Echo: EF 55-60%. TAVR. Leaflets appear normal. No aortic regurgitation. Mild MR/TR.

Sepsis due to possible Right kidney abscess/Pyelonephritis:
-Leukocytosis has resolved
-imaging as above
-All culture data except drain culture negative as above
-Lyme/Anaplasma/Ehrlichia/monoscreen/covid serology and Babesia smear negative
-LEVON above, no vegetation
-s/p R perinephric drain placement 11/05/23. growing pansensitive E-coli
-KATHY neg/vasculitis panel pending, clinically less likely.
-Patient antibiotics were adjusted to IV Invanz for 2-3 weeks, CM working on home infusion setup, Midline in place.
Expressive aphasia, much resolved
-admitted with persistent word-finding difficulty - symptoms distinct from prior episode (garbled speech, confusion).
-continue ASA/Plavix
-MRI brain without acute CVA
-pt's MS is back to her baseline from recent stroke
Transaminitis:
-likely related to current infection
-CT A/P from admission noted liver with normal limit
-LFT trended down.
-resumed statin/zetia at discharge.
Acute hypoxemic respiratory insufficiency:
-now resolved
-Likely related to sepsis in the setting of likely undiagnosed VESNA/OHS
-CXR: No active cardiopulmonary disease.
-Weaned back to RA
Other problems:
Essential Hypertension: cont Norvasc/Hydralazine/BB/Aldactone/ARB (with holding parameters)
DM2: SSI/AccuCheck
Hypokalemia, resolved
Hypomagnesemia: replace prn
Hypothyroidism: cont Levoxyl.
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
Aortic Stenosis s/p TAVR (01/2023)
Obesity due to excess calories
Full code/SCDs
More than 30 minutes spent in discharge including
Final examination of the patient
Summarizing hospital stay
Instructions for continuing care to all relevant caregivers
Preparation of discharge records, prescriptions, and referral forms
Total time spent (in minutes): 38 mins
Anticipated Discharge: Today
Subjective/Interval History
-
Date of Service: November 11, 2023
no issues overnight
Objective Data
-
Vital Signs:
Vital Signs
Temp Pulse Resp BP Pulse Ox
98.6 F 66 16 135/64 95
11/11/23 07:25 11/11/23 07:25 11/11/23 07:25 11/11/23 07:25 11/11/23 07:25
I&O
11/10/23 11/11/23 11/12/23
06:59 06:59 06:59
Intake Total 1210 / 1210 730 / 730
Output Total 565 / 565
Balance 1210 / 1210 165 / 165
Review of Systems
-
Respiratory: Reports No Symptoms
Cardiac: Reports No Symptoms
Abdomen/GI: Reports No Symptoms
Physical Exam
-
General: Obese
HEENT: Negative Oxygen
GI: Soft, Nontender, Nondistended and Other (FRANCOIS drain in right side)
Neuro: Awake, Alert, Oriented and No Motor Deficits
[2023-11-11 11:44] LABS: Glucose - Point of Care 125 mg/dl (70-99)
--- NOTE | 2023-11-11 11:48 | CM ---
Addendum entered by SHAYNE Lowe 11/11/23 16:53:
Received return call from Karla at [facility] who stated that she still does not as of yet have the auth. Patient's daughter who was at bedside asked if patient would be able to go to outpatient infusion. Spoke with ID who stated that patient
would not be able to start outpatient infusion on a Tuesday. Confirmed this with Infusion Center. Updated family. Patient's daughter was agreeable to taking patient home with home infusion and [facility] while they await determination and leave credit
card on file in case the auth does not go through. Private pay expense, 1200. Family stated that they would rather take her home and pay privately potentially than stay any longer.
Patient's daughter transported patient home.
Original Note:
Reviewed chart, spoke with previous CM on case who stated that Karla from [facility] has to get authorization from insurance company for medication. She confirmed that this should be obtained this morning.
Spoke with [employer] director and family (patient and her daughter) who were upset as the process is taking too long. Understanding provided.
Placed another call to Karla at [facility] to determine if there could be an update. Had to leave a voice mail message. REquested return annie with update
Plan: Case management will continue to follow and assist with discharge planning. Home with IV ABX and [facility].
--- NOTE | 2023-11-11 11:50 | W.PN.ID1 ---
Date of Service
Date of Service: November 11, 2023
Today's Communication
Continue Ertapenem.
DC home today.
Assessment / Plan
# Right renal abscess s/p drain placement (11/05/23). Cx + E coli, suspect polymicrobial
# Fevers - resolved
# Leukocytosis
# Presence of TAVR. 11/04/23 LEVON no vegetations
- 11/06 Body fluid culture: moderate E coli from the perinephric abscess
- patient had ertapenem 10/31-11/06 and cefepime prior to this culture - there may be additional isoaltes which did not grow due to prior antibiotics
- 11/01 blood cultures finalized negative
- plan 2-3 more weeks of IV ertapenem,
- midline in place
- will arrange for abscessogram outpt.
- Follow wbc
- follow up in clinic in about 2 weeks
# Conditions prior to admission
DM
HTN
CVA
TAVR (01/2023)
Hypothyroidism
Interstitial cystitis
Urinary incontinence
VESNA on CPAP
hx left frontal meningioma resection
����������������������������������������������������������
Chief Complaint
-: Fever and Other (renal abscess)
Subjective / Review of Systems
Hoping to go home today. Needs insurance authorization.
No fevers.
Vital Signs / Physical Exam
Vital Signs
Vital Signs
Temp Pulse Resp BP Pulse Ox
98.6 F 66 16 135/64 95
11/11/23 07:25 11/11/23 07:25 11/11/23 07:25 11/11/23 07:25 11/11/23 07:25
Physical Exam
Constitutional: No Acute Distress and Comfortable
Cardiovascular: Regular Rate
Pulmonary: Clear
Gastrointestinal: Non Tender and Non Distended
Genito-Urinary: Negative CVA Tenderness
Neurological: AO x 3
Objective Data
Lab Data
Lab Results
11/07/23 07:13
11/07/23 07:13
PT 13.0 Sec (11.4-14.6) 10/27/23 21:12
INR 0.98 10/27/23 21:12
APTT 27.5 Sec (23.4-35.0) 10/27/23 21:12
Estimated Creat Clear 81 ml/min 11/07/23 07:13
Total Bilirubin 0.8 mg/dl (0.2-1.3) 11/06/23 06:14
AST 33 U/L (14-36) 11/06/23 06:14
ALT 67 U/L (0-35) H 11/06/23 06:14
Alkaline Phosphatase 168 U/L (38-126) H 11/06/23 06:14
Most recent labs reviewed.
Micro Results:
11/02/23 14:33 Blood Culture - Final
Blood/Venous No Growth - Final Report
11/02/23 14:12 Blood Culture - Final
Blood/Venous No Growth - Final Report
11/05/23 09:55 Body Fluid Culture - Final
Fluid Escherichia coli
Gram Stain - Final
10/28/23 09:13 Blood Culture - Final
Blood/Venous No Growth - Final Report
10/28/23 03:32 Blood Culture - Final
Blood/Venous No Growth - Final Report
10/30/23 00:15 Urine Culture - Final
Urine
10/29/23 13:39 Blood Parasites Smear - Final
Blood/Venous
10/28/23 03:47 Influenza Types A & B ([facility]) - Final
Nasal Swab Negative for Influenza A & B, NAAT
Negative results must be combined with clinical observations
and patient history.
Nucleic Acid Amplification test (NAAT)performed on the
[employer] platform.
10/29/23 CT a/p with po and IV contrast: Suspect focal areas of bilateral pyelonephritis with intrarenal abscess formation within the upper pole right kidney measuring up to 2.9 cm. Intravesical gas suggesting cystitis.
10/28/23 MRI brain:
1. No MRI evidence for acute infarct.
2. Small chronic ischemic infarcts in the right cerebellar hemisphere.
3. 6.7 mm chronic ischemic periventricular white matter infarct in the right frontal lobe.
4. Mild white matter leukoaraiosis in the frontal and parietal lobes.
5. Previous left frontotemporal craniotomy and meningioma resection with mild encephalomalacia in the left frontal lobe.
6. Mild diffuse cerebral and cerebellar volume loss.
7. 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
8. Severe multilevel left-sided facet joint arthrosis.
9. Mild paranasal sinus mucosal disease.
10/28/23 CXR 1 view: No focal parenchymal opacification to suggest pneumonia.
[2023-11-11] MEDS: INVANZ 60 MG IV (13:19)
--- NOTE | 2023-11-12 17:19 | W.DCSUMMARY ---
Discharge Summary
Discharge Data
Date of Admission: 10/27/23
Date of Discharge: 11/11/23
-
Pending Results: No
Hospital Course
Discharging Physician : Dr Ron Anderson
Disposition : Home with home care
Primary care physician : Dr Gail Joiner
Principal Discharge diagnosis :
Possible transient ischemic attack with expressive aphasia
Sepsis secondary to right renal abscess
Acute transaminitis
Acute hypoxic respiratory insufficiency
Chronic Discharge diagnosis :
Essential hypertension
Type 2 diabetes mellitus
Hypothyroidism
History of aortic stenosis s/p transcatheter aortic valve replacement
Obesity
Hospital Course :
Patient is a 73-year-old female with above-mentioned past medical history was brought in by family after patient was noted to having speech abnormality. Patient was having on and off dizziness episode for several weeks before ER presentation.
Patient was evaluated in ER and there was initial concern of patient having possible TIA/CVA. Neurology was involved in care and patient was started on Plavix on top of home aspirin. An MRI brain was done which ruled out any CVA. Patient
mentation normalized and it was felt to be possible TIA episode.
Patient also was noted to having new onset of fever reason of which was unclear. Patient was started on broad-spectrum antibiotic and infection disease physicians were involved for care. Patient initially had blood culture which were negative for
any overt bacteremia. A CT abdomen pelvis was done which incidentally showed an right renal possible phlegmon. Interventional radiology was involved in care for possible drainage although it was felt to be not liquid enough to be drained. Patient
underwent extensive workup including transthoracic followed by transesophageal echocardiogram to rule out any endocarditis. Lyme/Anaplasma/ehrlichia/monoscreen/COVID serology/Babesia smear all were negative. Due to nonresolution of symptoms
patient antibiotics were escalated to carbapenems. Repeat CT abdomen pelvis was done which showed stable finding with possible early abscess formation in right kidney. Repeat interventional radiology evaluation was done and this time around a FRANCOIS
drain was able to be placed for drainage. Drain culture was growing pansensitive E. coli and antibiotics were consolidated to IV Ancef although patient started having fever again. As patient had appropriate response with ertapenem ID recommended
15-day course of ertapenem. An IV line was placed and after arrangement of home infusion patient was discharged home. Patient to come back to [facility] department after 1 week to have FRANCOIS drain removed.
Important imaging findings :
None
Procedure findings :
None
Discharge Plan
-
Patient Disposition: Home with Home Care
Discharge Diagnosis/Procedures: Right pyelonephritis/abscess
Condition: Fair
Diet: Regular
Activity: As tolerated
Driving Restrictions: No driving for 5 days
Bathing Restrictions: OK to Shower
Other Services: VN and PT
Activity Restrictions/Additional Instructions:
Please call [facility] department for FRANCOIS drain removal in 1 week - Contact number [phone]
Referrals:
Gail Joiner CRNP [Family Provider] - in one week
Guerda Duffy MD [Active] - in two to three weeks
Prescriptions:
New
Ertapenem [Invanz] 1000 MG
0.9% Sodium Chloride [Nss] 50 ML
120 mls/hr IV Q24H
Ordered By: Ron Anderson MD
Last Taken: 11/11/23 13:19 60 mls
clopidogrel [Plavix] 75 mg tablet
75 mg PO DAILY Qty: 30 1RF
Continued
metoprolol succinate 200 mg Tablet Extended Release 24 Hr
200 mg PO QPM
omeprazole 40 mg Capsule,Delayed Release(Dr/Ec)
40 mg PO QPM
meloxicam 7.5 mg Tablet
7.5 mg PO BID
levothyroxine 50 mcg Tablet
50 mcg PO MOTUWETHFR
metformin 1,000 mg Tablet
1,000 mg PO BID
estradiol 0.01 % (0.1 mg/gram) Cream
1 appful VAGINAL SUWE
Patient Comments:
takes sundays and wednesdays
fenofibrate 160 mg Tablet
160 mg PO DAILY
valsartan-hydrochlorothiazide 320-25 mg Tablet
1 tab PO DAILY
citalopram 40 mg Tablet
40 mg PO QPM
levothyroxine 50 mcg tablet
100 mcg PO SUSA
aspirin 81 mg Tablet,Delayed Release (Dr/Ec)
81 mg PO DAILY Qty: 30 0RF
atorvastatin 80 mg tablet
80 mg PO QPM
amlodipine 5 mg tablet
5 mg PO DAILY
spironolactone 25 mg tablet
25 mg PO DAILY
hydralazine 50 mg tablet
50 mg PO TID
ezetimibe 10 mg tablet
10 mg PO DAILY
Visbiome 112.5 billion cell Capsule
1 cap PO QPM
Ozempic 0.25 mg or 0.5 mg (2 mg/3 mL) pen injector
0.5 mg SC WEEKLY
fluticasone propionate 50 mcg/actuation [place],Suspension
1 spray INTRANASAL HS
Discharge Orders:
Discharge Patient (As Directed); Ordered 11/09/23
Ordered By: Ron Anderson
Discharge Date and Time
Discharge Date/Time: 11/11/23 15:53
Print Language: ROMANSH
== END 2023-11-11 15:53 | disposition home health service (06) | DRG 853 ==
LOC: 3 WEST ACU 23:53
PROVIDERS: Internal Medicine; Nurse Practitioner Gerontology; Radiology Vascular & Interventional Radiology; ADMITTING PHYSICIAN Hospitalist; ATTENDING PHYSICIAN Hospitalist; CONSULT PHYSICIAN Internal Medicine; CONSULT PHYSICIAN Internal Medicine Infectious Disease; CONSULT PHYSICIAN Psychiatry & Neurology Neurology; EMERGENCY PHYSICIAN Emergency Medicine; FAMILY PHYSICIAN Nurse Practitioner Adult Health
PROC: 0T9040Z Drainage of Right Kidney with Drainage Device, Percutaneous Endoscopic Approach (ICD-10-PCS; 2023-11-06)
DX: A41.9 Sepsis, unspecified organism (principal); N15.1 Renal and perinephric abscess; G45.9 Transient cerebral ischemic attack, unspecified; N12 Tubulo-interstitial nephritis, not specified as acute or chronic; B96.20 Unspecified Escherichia coli [E. coli] as the cause of diseases classified elsewhere; E87.6 Hypokalemia; Z79.82 Long term (current) use of aspirin; Z86.73 Personal history of transient ischemic attack (TIA), and cerebral infarction without residual deficits; Z11.52 Encounter for screening for COVID-19
CPT/HCPCS: 49405; 70450; 70496; 70498; 70551; 71045; 71046; 72125; 72141; 74177; 74178; 80048; 80053; 80076; 81003; 81015; 82248; 82962; 83036; 83516; 83690; 83735; 84443; 84484; 85025; 85027; 85610; 85730; 86038; 86308; 86618; 86666; 86803; 87015; 87040; 87070; 87077; 87086; 87186; 87205; 87207; 87502; 87811; 92523; 92526; 92610; 93005; 93306; 93312; 93320; 93325; 96374; 97116; 97129; 97140; 97163; 97167; 97530; 97535; 99152; 99153; 99291; C1729; C1769; J1335; Q9967

== ENCOUNTER → 2023-11-16 12:12 | Outpatient (REF) | payer MEDICARE, OTHER, SELFPAY ==
[2023-11-16 12:44] VITALS: BP 144/80; BP_SYST 68
== END ==
LOC: RADI 12:12
PROVIDERS: ATTENDING PHYSICIAN Radiology Diagnostic Radiology
DX: Z46.82 Encounter for fitting and adjustment of non-vascular catheter (principal); N15.1 Renal and perinephric abscess
CPT/HCPCS: 49424; 76080

== ENCOUNTER → 2023-11-17 15:53 | Outpatient (REF) | payer MEDICARE, OTHER, SELFPAY ==
--- NOTE | 2023-11-17 16:13 | PN.[facility].UPD ---
Update Note - [facility]
- -
right site abscess drain flushed with 3 ml normal saline. Patient had concern about the catheter not draining much fluid. Catheter patent at that time.
== END ==
LOC: RADI 15:53
PROVIDERS: ATTENDING PHYSICIAN Radiology Diagnostic Radiology
DX: Z46.82 Encounter for fitting and adjustment of non-vascular catheter (principal); K65.1 Peritoneal abscess

== ENCOUNTER → 2023-11-24 09:18 | Outpatient (REF) | payer MEDICARE, OTHER, SELFPAY | LOC: RADI 09:18 | PROVIDERS: ATTENDING PHYSICIAN Radiology Diagnostic Radiology; FAMILY PHYSICIAN Physician Assistant | DX: Z46.82 Encounter for fitting and adjustment of non-vascular catheter (principal); N15.1 Renal and perinephric abscess | CPT/HCPCS: 49424; 76080 ==

== ENCOUNTER → 2024-04-12 15:21 | Outpatient (REF) | payer MEDICARE, OTHER, SELFPAY | LOC: RAD 15:21 | PROVIDERS: ATTENDING PHYSICIAN Urology; FAMILY PHYSICIAN Physician Assistant; REFERRING PHYSICIAN Surgery Vascular Surgery | DX: R10.2 Pelvic and perineal pain (principal); N30.10 Interstitial cystitis (chronic) without hematuria; N39.41 Urge incontinence; N39.0 Urinary tract infection, site not specified; N31.9 Neuromuscular dysfunction of bladder, unspecified | CPT/HCPCS: 74178; Q9967 ==

== ENCOUNTER → 2024-05-08 14:20 | Outpatient (REF) | payer MEDICARE, OTHER, SELFPAY | LOC: HWWDC 14:20 | PROVIDERS: ATTENDING PHYSICIAN Physician Assistant | DX: Z13.820 Encounter for screening for osteoporosis (principal); Z12.31 Encounter for screening mammogram for malignant neoplasm of breast; M81.0 Age-related osteoporosis without current pathological fracture | CPT/HCPCS: 77063; 77067; 77080 ==

== ENCOUNTER → 2024-05-18 10:01 | Outpatient (REF) | payer MEDICARE, OTHER, SELFPAY | LOC: WDC 10:01 | PROVIDERS: ATTENDING PHYSICIAN Physician Assistant | DX: R92.8 Other abnormal and inconclusive findings on diagnostic imaging of breast (principal) | CPT/HCPCS: 77065 ==

== ENCOUNTER → 2024-09-20 07:49 | Outpatient (REF) | payer MEDICARE, OTHER, SELFPAY | LOC: RCS 07:49 | PROVIDERS: ATTENDING PHYSICIAN Internal Medicine Cardiovascular Disease; FAMILY PHYSICIAN Physician Assistant | DX: Z95.2 Presence of prosthetic heart valve (principal) | CPT/HCPCS: 93306 ==

== ENCOUNTER → 2025-01-29 14:26 | Outpatient (REF) | payer MEDICARE, OTHER, SELFPAY | LOC: RAD 14:26 | PROVIDERS: ATTENDING PHYSICIAN Nurse Practitioner Gerontology; FAMILY PHYSICIAN Physician Assistant | DX: R42 Dizziness and giddiness (principal); R26.9 Unspecified abnormalities of gait and mobility; I65.23 Occlusion and stenosis of bilateral carotid arteries | CPT/HCPCS: 70450; 93880 ==

== ENCOUNTER → 2025-03-13 10:34 | Outpatient (REF) | payer MEDICARE, OTHER, SELFPAY | LOC: RAD 10:34 | PROVIDERS: ATTENDING PHYSICIAN Physician Assistant | DX: M25.552 Pain in left hip (principal) | CPT/HCPCS: 73502 ==